=== PATIENT | male | born 1995 | race Caucasian/White ===

== ENCOUNTER 2017-03-22 10:53 | Inpatient (IN) | payer MEDICAID, OTHER ==
[~2017-03-22] VITALS: Ht 182.9 cm; Wt 67.6 kg
[2017-03-22 11:18] VITALS: TEMP 101.3
[2017-03-22] MEDS ORDERED: SODIUM CHLORIDE 0.9% 1L BAG IV* STA (11:22)
[2017-03-22] MEDS ORDERED: ACET325S GTB (11:24)
[2017-03-22] MEDS ORDERED: AMLO5TAB4 GTB (11:25)
[2017-03-22] MEDS ORDERED: APIX5TAB GTB (11:26)
[2017-03-22] MEDS ORDERED: BACL10TA GTB (11:27)
[2017-03-22] MEDS ORDERED: NA P135E RC (11:28)
[2017-03-22] MEDS ORDERED: UDCOL GTB (11:28)
[2017-03-22] MEDS ORDERED: ACETAMINOPHEN 325 MG TAB NGT ONE (11:30)
[2017-03-22 11:31] LABS: ADD SCAN DIFF NO
[2017-03-22] MEDS ORDERED: HYDR-3671 GTB (11:32)
[2017-03-22 11:34] LABS: BASOPHILS % 0.2 % (0.0-2.0); EOSINOPHILS % 0.1 % (0.0-7.0); HEMATOCRIT 39.3 % (42.0-52.0); HEMOGLOBIN 13.2 g/dl (14.0-18.0); LYMPHOCYTES # 1.1 10^3/ul (0.8-2.9); LYMPHOCYTES % 7.7 % (15.0-51.0); MEAN CORPUSCULAR HEMOGLOBIN 29.3 pg (29.0-33.0); MEAN CORPUSCULAR HGB CONC 33.6 g/dl (32.0-37.0); MEAN CORPUSCULAR VOLUME 87.3 fl (82.0-101.0); MEAN PLATELET VOLUME 10.8 fl (7.4-10.4); MONOCYTE # 1.1 10^3/ul (0.3-0.9); MONOCYTES % 7.9 % (0.0-11.0); NEUTROPHIL # 11.7 10^3/ul (1.6-7.5); NEUTROPHILS % 83.8 % (39.0-77.0); PLATELET COUNT 335 10^3/UL (140-415); RED CELL DISTRIBUTION WIDTH 14.2 % (11.5-14.5)
[2017-03-22] MEDS ORDERED: LACT1CAP57 GTB (11:36)
[2017-03-22] MEDS ORDERED: LANS30CA GTB (11:38)
[2017-03-22] MEDS ORDERED: LACT20SO2 GTB (11:38)
[2017-03-22] MEDS ORDERED: KEP100S GTB (11:39)
[2017-03-22] MEDS ORDERED: LISI20TA11 GTB (11:41)
[2017-03-22] MEDS ORDERED: POLY17PO6 GTB (11:43)
[2017-03-22] MEDS ORDERED: MAGN400O4 GTB (11:43)
[2017-03-22] MEDS ORDERED: NIT1OI2 TD (11:44)
[2017-03-22 11:47] LABS: ALBUMIN 4.3 g/dl (3.3-4.9)
[2017-03-22 11:48] LABS: CHLORIDE 101 mmol/L (97-110); POTASSIUM 3.9 mmol/L (3.5-5.1); SODIUM 139 mmol/L (135-144)
[2017-03-22 11:48] LABS: PARTIAL THROMBOPLASTIN TIME 22.8 Sec (25.0-35.0)
[2017-03-22] MEDS ORDERED: NYST1000 GTB (11:48)
[2017-03-22 11:50] LABS: ANION GAP 19 (8-16); BILIRUBIN,INDIRECT 0.6 mg/dl (0-1.1); BILIRUBIN,TOTAL 0.6 mg/dl (0.2-1.3); CARBON DIOXIDE 23 mmol/L (21-31); CREATININE 0.75 mg/dl (0.61-1.24)
[2017-03-22 11:51] LABS: ALANINE AMINOTRANSFERASE 94 IU/L (13-69); ALBUMIN/GLOBULIN RATIO 1.13; ALKALINE PHOSPHATASE 115 IU/L (42-121); ASPARTATE AMINO TRANSFERASE 50 IU/L (15-46); BLOOD UREA NITROGEN 20 mg/dl (7-20); CALCIUM 9.5 mg/dl (8.4-10.2); GLUCOSE 107 mg/dl (70-220); TOTAL PROTEIN 8.1 g/dl (6.1-8.1)
[2017-03-22] MEDS ORDERED: OXYC5CAP17 GTB (11:51)
[2017-03-22] MEDS ORDERED: CHLO473M4 MM (11:52)
[2017-03-22] MEDS ORDERED: PROC5VIA4 IM (11:53)
[2017-03-22] MEDS ORDERED: PROP40TA4 GTB (11:55)
[2017-03-22] MEDS ORDERED: PSYL660P17 GTB (11:57)
[2017-03-22] MEDS ORDERED: MYL80 PEG (11:58)
--- NOTE | 2017-03-22 11:58 | RADRPT ---
PROCEDURE: Chest Radiograph. CLINICAL INDICATION: Sepsis TECHNIQUE: Single frontal chest radiograph. COMPARISON: Chest radiograph 02/14/2017 FINDINGS: A tracheostomy tube is in place. The cardiomediastinal silhouette is within normal limits. No inf iltrate or effusion is seen. The bones are intact. IMPRESSION: 1. No evidence of acute cardiopulmonary disease. RPTAT: KK .Joon Krishna MD, MD Date Time Electronically viewed and signed by .Joon Krishna MD, on 03/22/2017 11:58 .B/
[2017-03-22] MEDS ORDERED: TOPI25TA38 GTB (11:59)
[2017-03-22] MEDS ORDERED: MULT-235 GTB (12:00)
[2017-03-22] MEDS ORDERED: SPIR25TA GTB (12:08)
[2017-03-22 12:13] LABS: TROPONIN-I < 0.012 ng/ml (0.00-0.12)
[2017-03-22] MEDS ORDERED: ONDANSETRON 4 MG INJ IV STA (13:20)
[2017-03-22 13:34] LABS: ADD UMIC YES; URINE BILIRUBIN (Dip) NEGATIVE (NEGATIVE); URINE BLOOD (Dip) NEGATIVE (NEGATIVE); URINE COLOR YELLOW (YELLOW); URINE GLUCOSE (Dip) NEGATIVE (NEGATIVE); URINE KETONES (Dip) TRACE (NEGATIVE); URINE LEUKOCYTE ESTERASE (Dip) NEGATIVE (NEGATIVE); URINE NITRITE (Dip) NEGATIVE (NEGATIVE); URINE TOTAL PROTEIN (Dip) 1+ (NEGATIVE); URINE UROBILINOGEN (Dip) 0.2 E.U./dL (0.1-1.0)
[2017-03-22 13:41] LABS: INR 1.16; PROTIME 14.8 Sec (12.2-14.2); PT RATIO 1.2
[2017-03-22 13:50] LABS: BACTERIA,URINE RARE; URINE RBCS 0-2 /HPF (0)
[2017-03-22] MEDS ORDERED: ACETAMINOPHEN 650MG/20.3ML CUP ONE (13:53)
[2017-03-22] MEDS ORDERED: CEFEPIME 2GM/50 ML (PMX) 50 ML IVPB STA (14:41)
[2017-03-22] MEDS ORDERED: VANCOMYCIN 1 GM (PMX) 250 ML IVPB STA (14:41)
--- NOTE | 2017-03-22 14:47 | RADRPT ---
PROCEDURE: CT Abdomen and Pelvis without contrast. CLINICAL INDICATION: Fever. Tachycardia. TECHNIQUE: CT scan of the abdomen and pelvis without contrast was performed on a multi-slice CT [facility] without intravenous contrast. Coronal and sagittal reformatted images were obtained from the axial source images. Images were reviewed on a high-resolution PACS workstation. One or more of the following does reduction techniques were used: Automated exposure control; adjustment of the mA an d/or kV according to patient size; use of the aorta of reconstruction technique. The total exam CTD I equals 14.45 mGy and the total exam DLP equals 915.65 mGy-cm. COMPARISON: None available. FINDINGS: There is moderate bilateral posterior lower lobe subsegmental atelectasis. The lung bases are other matamoros clear. Heart size is normal, and there is no evidence of pericardial thickening or effusion. There is moderate to marked thickening of the distal esophagus. Evaluation of the upper abdomen is limited due to streak artifact from upper extremities. The liver , spleen, and pancreas are grossly within normal limits given limitations of a noncontrast CT examin ation. The gallbladder is normal. The adrenal glands are normal. The kidneys without renal calculus or hydronephrosis. The aorta is of normal caliber. Note is made of an inferior vena caval filter. There is no retroper itoneal lymph node enlargment. There is no evidence of large or small bowel obstruction. A gastrostomy tube is in place. There is moderate stool within the rectum and mild stool throughout the colon. A normal appendix is identif ied. No free fluid or fluid collections are identified. No inflammatory changes are seen. No enlarged pelvic sidewall lymph nodes are seen. The bladder is decompressed and predominately co llapsed.. No free fluid is identified. The inguinal regions are unremarkable. The bones are intact. IMPRESSION: 1. Moderate to marked thickening of the distal esophagus. Recommend correlation with esophagitis. A neoplasm could also have this appearance, however the highly unlikely in a patient of this age. 2. Moderate bilateral posterior lower lobe atelectasis. 3. Inferior vena caval filter and gastrostomy tube in place. 4. Moderate rectal stool and mild stool throughout colon. Correlate with fecal impaction. RPTAT: KK .Joon Krishna MD, MD Date Time Electronically viewed and signed by .Joon Krishna MD, MD on 03/22/2017 14:47 .B/
[2017-03-22] MEDS ORDERED: SOD CHLORIDE 0.9% 1,000 ML IV SCH (14:49)
[2017-03-22] MEDS ORDERED: ACETAMINOPHEN 325 MG TAB PO PRN (15:00)
[2017-03-22] MEDS ORDERED: ONDANSETRON 4 MG INJ IV PRN ×2 (15:00→18:00)
--- NOTE | 2017-03-22 15:02 | ERA ---
ER Documentation Chief Complaint Date/Time DATE: 03/22/17 TIME: 14:56 Chief Complaint fever and tachycardia from snf; symptoms started today HPI History obtained from patient's family members were at bedside. This is a 21- year-old male who is brought in by ambulance from his [facility] for evaluation of a fever and tachycardia. According to the patient's family member this patient does have his history of anoxic brain injury secondary to drug overdose. He subsequently had a craniotomy, and developed respiratory issues and had to have a trach and PEG placed. This patient is unable to give a detailed history secondary to his clinical condition and cognitive deficits at this time ROS All systems reviewed and are negative except as per history of present illness. Medications Home Meds Reported Medications Spironolactone* (Aldactone*) 25 Mg Tablet, 25 MG GTB DAILY, #30 TAB HOLD FOR SBP LESS THAN 110 AND HR LESS THAN 60 03/22/17 Multivitamin (Multi-Day Vitamins) 1 Each Tablet, 1 EACH GTB DAILY, TAB LIQUID 03/22/17 Topiramate* (Topamax*) 25 Mg Tablet, 25 MG GTB BID, TAB 03/22/17 Simethicone* (Mylicon*) 80 Mg Tab, 80 MG PEG Q6H Y for DISTENSION/GAS/BLOATING, TAB 03/22/17 Psyllium Husk (Metamucil) 660 Gm Powder, 660 GM GTB BID 03/22/17 Propranolol Hcl* (Propranolol Hcl*) 40 Mg Tablet, 40 MG GTB Q6 Y for ELEVATED BLOOD PRESSURE, TAB HOLD FOR SBP LESS THAN 110 AND HR LESS THAN 60 03/22/17 Prochlorperazine Edisylate* (Prochlorperazine Edisylate*) 5 Mg/1 Ml Vial, 5 MG IM Q6H Y for NAUSEA AND/OR VOMITING, VIAL 03/22/17 Chlorhexidine Gluconate (Peridex) 473 Ml Mouthwash, 15 ML MM Q12, BOTTLE 03/22/17 Oxycodone Hcl* (IR) (Oxycodone Hcl*) 5 Mg Capsule, 5 MG GTB Q4H Y for PAIN, CAP 03/22/17 Nystatin (Nystatin) 100,000 Unit/1 Ml Oral.susp, 1 ML GTB BID Y for FUNGI INFECTION, #60 ML SWAB AND SUCTION 03/22/17 Nitroglycerin* (Nitro-Bid* Oint (Pkt)) 1 Inch Oint, 1 INCH TD Q6 Y for CHEST PAIN, PACKET 03/22/17 Polyethylene Glycol* (Miralax*) 17 Gm Powd.pack, 17 GM GTB DAILY, #30 PACKET 03/22/17 Magnesium Hydroxide* (Milk Of Magnesia*) 400 Mg/5 Ml Oral.susp, 30 ML GTB DAILY , ML 03/22/17 Lisinopril* (Lisinopril*) 20 Mg Tablet, 20 MG GTB DAILY Y for ELEVATED BLOOD PRESSURE, #30 TAB HOLD FOR SBP LESS THAN 120 AND HR LESS THAN 60 03/22/17 Levetiracetam* (Keppra* (Ped)) 100 Mg/Ml Liq, 2000 MG GTB BID for 30 Days, BOTTLE 03/22/17 Lansoprazole* (Lansoprazole*) 30 Mg Capsule.dr, 30 MG GTB DAILY, CAP 03/22/17 Lactulose* (Lactulose*) 20 Gm/30 Ml Solution, 20 GM GTB BID, ML 03/22/17 Lactobacillus Rhamnosus* (Culturelle*) 1 Each Cap.sprink, 1 CAP GTB DAILY, CAP 03/22/17 Hydralazine Hcl* (Hydralazine Hcl*) 25 Mg Tab, 25 MG GTB Q8 Y for ELEVATED BLOOD PRESSURE, #90 TAB SBP ABOVE 160 03/22/17 Na Phos,M-B/Na Phos,Di-Ba (ENEMA READY TO USE) 135 Ml Enema, 135 ML RC DAILY Y for CONSTIPATION, ENEMA 03/22/17 Docusate Sodium* (Colace* Liq) 50 Mg/5 Ml Liquid, 100 MG GTB BID, EA 03/22/17 Baclofen* (Baclofen*) 10 Mg Tablet, 10 MG GTB BID Y for MUSCLE SPASMS, TAB 03/22/17 Apixaban* (Eliquis*) 5 Mg Tablet, 5 MG GTB BID, TAB 03/22/17 Amlodipine Besylate* (Norvasc*) 5 Mg Tablet, 5 MG GTB DAILY, TAB HOLD FOR SBP LESS THAN 110 AND HR LESS THAN 60 03/22/17 Acetaminophen* (Acetaminophen* Susp) 325 Mg/10.15 Ml Solution, 500 MG GTB Q6 Y for PAIN AND OR ELEVATED TEMP, ML 03/22/17 Allergies Allergies: Coded Allergies: prasugrel (Verified Allergy, Unknown, 03/22/17) shrimp (Verified Allergy, Unknown, 03/22/17) *SHRIMP FLAVOR* PMhx/Soc History of Surgery: Yes (trache) Anesthesia Reaction: No Hx Respiratory Disorders: Yes (pna, ) Hx Miscellaneous Medical Probl: No Hx Alcohol Use: No Hx Substance Use: No Hx Tobacco Use: No Smoking Status: Never smoker Physical Exam Vitals Vital Signs Date Time Temp Pulse Resp B/P Pulse Ox O2 Delivery O2 Flow Rate FiO2 03/22/17 13:51 118 24 119/89 99 Mask 5.0 03/22/17 11:18 101.3 124 03/22/17 11:18 101.3 124 22 127/82 100 03/22/17 11:18 Simple Mask 5 Physical Exam INITIAL VITAL SIGNS: Reviewed by me GENERAL: The patient is poorly developed, bedbound, trach HEENT: Craniotomy scar pupils equal, round, and reactive to light. EOMI. There is no scleral icterus. NECK: C-spine is soft and supple, there is no meningismus. There is no cervical lymphadenopathy. LUNGS: Clear to auscultation bilaterally. There are no rales, wheezes or rhonchi. HEART: Tachycardia, no murmurs, clicks, rubs or gallops. ABDOMEN: PEG tube in place, soft, non-tender, non-distended. There are bowel sounds in all four quadrants. No rebound or guarding. EXTREMITIES: There is no peripheral cyanosis or edema. No focal swelling or erythema. SKIN: There is no apparent rash or petechiae. HEME/LYMPHATIC: There is no evidence of excessive bruising or lymphedema. PSYCHIATRIC: The patient does not appear anxious or depressed. Result Diagram: 03/22/17 1105 03/22/17 1105 Results 24 hrs Laboratory Tests Test 03/22/17 11:05 03/22/17 13:05 White Blood Count 14.010^3/ul Red Blood Count 4.5010^6/ul Hemoglobin 13.2g/dl Hematocrit 39.3% Mean Corpuscular Volume 87.3fl Mean Corpuscular Hemoglobin 29.3pg Mean Corpuscular Hemoglobin Concent 33.6g/dl Red Cell Distribution Width 14.2% Platelet Count 82875^3/UL Mean Platelet Volume 10.8fl Neutrophils % 83.8% Lymphocytes % 7.7% Monocytes % 7.9% Eosinophils % 0.1% Basophils % 0.2% Nucleated Red Blood Cells % 0.0/100WBC Neutrophils # 11.710^3/ul Lymphocytes # 1.110^3/ul Monocytes # 1.110^3/ul Eosinophils # 0.010^3/ul Basophils # 0.010^3/ul Nucleated Red Blood Cells # 0.010^3/ul Sodium Level 139mmol/L Potassium Level 3.9mmol/L Chloride Level 101mmol/L Carbon Dioxide Level 23mmol/L Anion Gap 19 Blood Urea Nitrogen 20mg/dl Creatinine 0.75mg/dl Glucose Level 107mg/dl Lactic Acid Level 1.1mmol/L 1.4mmol/L Calcium Level 9.5mg/dl Total Bilirubin 0.6mg/dl Direct Bilirubin 0.00mg/dl Indirect Bilirubin 0.6mg/dl Aspartate Amino Transf (AST/SGOT) 50IU/L Alanine Aminotransferase (ALT/SGPT) 94IU/L Alkaline Phosphatase 115IU/L Troponin I < 0.012ng/ml Total Protein 8.1g/dl Albumin 4.3g/dl Globulin 3.80g/dl Albumin/Globulin Ratio 1.13 Prothrombin Time 14.8Sec Prothrombin Time Ratio 1.2 INR International Normalized Ratio 1.16 Activated Partial Thromboplast Time 22.8Sec Urine Color YELLOW Urine Clarity CLEAR Urine pH 6.0 Urine Specific [place] 1.025 Urine Ketones TRACE Urine Nitrite NEGATIVE Urine Bilirubin NEGATIVE Urine Urobilinogen 0.2 E.U./dL Urine Leukocyte Esterase NEGATIVE Urine Microscopic RBC 0-2/HPF Urine Microscopic WBC NONE SEEN/HPF Urine Bacteria RARE Urine Hemoglobin NEGATIVE Urine Glucose NEGATIVE% Urine Total Protein 1+ Current Medications Medications (Trade) Dose Ordered Sig/Demarcus Route PRN Reason Start Time Stop Time Status Last Admin Dose Admin Acetaminophen (Tylenol Tab) 650 mg ONCE ONCE NGT 03/22/17 11:30 03/22/17 11:31 DC 03/22/17 12:09 Sodium Chloride (NS) 2,400 ml BOLUS OVER 2 HOURS STAT IV* 03/22/17 11:22 03/22/17 11:23 DC 03/22/17 12:09 Ondansetron HCl (Zofran Inj) 4 mg ONCE STAT IV 03/22/17 13:20 03/22/17 13:21 DC 03/22/17 13:50 Acetaminophen 650 mg 650 mg STK-MED ONCE .ROUTE 03/22/17 13:53 03/22/17 13:54 DC Vancomycin HCl 250 ml @ 125 mls/hr ONCE STAT IVPB 03/22/17 14:41 03/22/17 16:40 Cefepime HCl (Maxipime 2gm/50 ml (Pmx)) 50 ml @ 100 mls/hr ONCE STAT IVPB 03/22/17 14:41 03/22/17 15:10 Procedures/MDM EKG: Rate/Rhythm: Sinus tachycardia QRS, ST, T-waves: [No changes consistent w/ acute ischemia] Impression: [No evidence of ischemia or arrhythmia] Chest X-ray 1V Interpreted by me: Soft Tissue: No acute abnormalities Bones: No acute abnormalities Mediastinum/Cardiac Silhouette/Lungs: [No acute abnormalities] CT abdomen pelvis without: 1. Moderate to marked thickening of the distal esophagus. Recommend correlation with esophagitis. A neoplasm could also have this appearance, however the highly unlikely in a patient of this age. 2. Moderate bilateral posterior lower lobe atelectasis. 3. Inferior vena caval filter and gastrostomy tube in place. 4. Moderate rectal stool and mild stool throughout colon. Correlate with fecal impaction. This 21-year-old male presents to the emergency room for evaluation of fever and tachycardia. When I evaluated this patient did note that he had a tracheostomy, PEG tube, was febrile and tachycardic. A septic workup was started on this patient which does reveal leukocytosis. I did obtain a chest x- ray which is clear, urinalysis is also clear, CT of the abdomen and pelvis does not reveal any acute sign of infection. However given this patient's extensive medical history with anoxic brain injury, recent hospitalization, previous staph infection this patient will be placed in for admission at this time. I started the patient on broad-spectrum antibiotics with vancomycin and cefepime. I have contacted this patient's primary physician, Dr. sims who states to admit the patient to panel. This patient will be admitted to her panel physician, Dr. mccall for antibiotic administration, IV fluid hydration, and reevaluation. This patient will be placed on the telemetry floor. He is hemodynamically stable. Critical Care: Excluding all billable procedures Time: 44 minutes Treatments/Evaluations: Close monitoring and treatment of unstable vital signs, cardiorespiratory, and neurologic status, while maintaining tight balance of fluid, respiratory, and cardiac interventions. Departure Diagnosis: Primary Impression: SIRS (systemic inflammatory response syndrome) Additional Impressions: Fever Leukocytosis Normocytic anemia Condition: Serious HELLEN EUCEDA DO March 22, 2017 15:02
[2017-03-22 17:00] VITALS: Ht 182.9 cm; Wt 67.6 kg
[2017-03-22 17:18] VITALS: PULSE 136
[2017-03-22] MEDS ORDERED: NA PHOSPHATE/BIPHOS 133 ML ENEMA PR PRN (18:00)
[2017-03-22] MEDS ORDERED: BACLOFEN 10 MG TAB GTB PRN (18:00)
[2017-03-22] MEDS ORDERED: oxyCODONE 5 MG TAB GTB PRN (18:00)
[2017-03-22] MEDS ORDERED: PROPRANOLOL 40 MG TAB GTB PRN (18:00)
[2017-03-22] MEDS ORDERED: NACL 0.9% 3 ML SYG IV SCH (18:00)
[2017-03-22] MEDS ORDERED: VANCOMYCIN IV PER PHARMACY XX SCH (18:00)
[2017-03-22] MEDS ORDERED: PROCHLORPERAZINE 10 MG INJ IM PRN (18:00)
[2017-03-22] MEDS ORDERED: NITROGLYCERIN 2% 1 GM OINT PKT TD PRN (18:00)
[2017-03-22 20:00] VITALS: BP 155/97; RESP 16
[2017-03-22] MEDS ORDERED: VANCOMYCIN 1.25 GM in SOD CHLORIDE 0.9% 250 ML IVPB ONE (20:00)
[2017-03-22 20:03] VITALS: PULSE 152
[2017-03-22] MEDS: ACETAMINOPHEN 650MG/20.3ML CUP GTB PRN (20:26)
[2017-03-22] MEDS ORDERED: SOD CHLORIDE 0.9% 1,000 ML IV ONE (20:30)
[2017-03-22] MEDS: DOCUSATE SODIUM 10 MG/ML (10ML CUP) GTB SCH (21:00)
[2017-03-22] MEDS: LACTULOSE 30ML CUP GTB SCH (21:00)
[2017-03-22] MEDS: LEVETIRACETAM (100 MG/ML) 5ML CUP GTB SCH (21:00)
[2017-03-22] MEDS: NYSTATIN SUSP 5 ML CUP GTB SCH (22:00)
[2017-03-22] MEDS: LISINOPRIL 20 MG TAB GTB SCH (22:56)
[2017-03-22] MEDS: PROPRANOLOL 40 MG TAB GTB SCH (22:56)
[2017-03-22] MEDS: PIPER-TAZO 3.375 GM IV (PMX) 100 ML IVPB SCH (22:57)
[2017-03-22] MEDS: APIXABAN 5 MG TABLET GTB SCH (22:57)
[2017-03-22] MEDS: TOPIRAMATE 25 MG TAB GTB SCH (22:58)
[2017-03-22] MEDS: CHLORHEXIDINE GLUCONATE 15 ML UD CUP MM SCH (22:58)
[2017-03-22] MEDS: PSYLLIUM (SUGAR FREE) PACKET GTB SCH (22:59)
[2017-03-22] MEDS ORDERED: IBUPROFEN 200 MG TAB PO ONE (23:00)
[2017-03-22] MEDS ORDERED: SOD CHLORIDE 0.9% 250 ML IV ONE (23:00)
[2017-03-23] VITALS (13 sets, daily range): BP systolic 112–182; BP diastolic 49–82; PULSE 83–128; RESP 17–32
[2017-03-23] MEDS: VANCOMYCIN 1 GM in NS 250 ML IVPB SCH ×3 (04:12→21:38)
[2017-03-23] MEDS: ACETAMINOPHEN 650MG/20.3ML CUP GTB PRN ×3 (05:27→18:56)
[2017-03-23] MEDS: LANSOPRAZOLE 30 MG CAP GTB SCH (05:27)
[2017-03-23] MEDS: PIPER-TAZO 3.375 GM IV (PMX) 100 ML IVPB SCH ×2 (05:27→14:17)
[2017-03-23] MEDS: PROPRANOLOL 40 MG TAB GTB SCH ×3 (05:29→18:00)
--- NOTE | 2017-03-23 06:45 | HP ---
DATE OF ADMISSION: 03/22/2017 CHIEF COMPLAINT: Fevers. HISTORY OF PRESENT ILLNESS: The patient is a 21-year-old male with a history of anoxic brain injury status post PEG, trach. The patient was at [facility] initially when he had presented with drug overdose , likely heroin. The patient apparently aspirated and underwent a long hypoxia, unclear if he ever had a cardiac arrest, but subsequent to his anoxic injury from the aspiration pneumonia, the patient was subsequently trached and PEG'd. The patient did have a blood clot in one of his extremities, t he patient's sister believes it was the left leg, and underwent thrombectomy in that leg. The patie nt also had IVC filter placed. After his stay [facility], the patient was transferred to [facility] where he was there for approximately 1 month. Then he was transferred to a [facility] where he wa s there for less than 1 day. He was noted to have fevers, tachycardia. In the ED, UA shows no sign s of UTI. Chest x-ray shows no signs of infection, but the patient is febrile with a white count. History is obtained by the patient's sister, as patient is nonverbal secondary to his underlying con dition. PAST MEDICAL HISTORY: History of hypertension in the past, he was on medications for this, as well as anoxic brain injury secondary to the long hypoxia from aspiration pneumonia from a drug overdose. PAST SURGICAL HISTORY: IVC filter placement, thrombectomy, and craniectomy for brain herniation dur ing his anoxic brain injury. HOME MEDICATIONS: 1. Aldactone. 2. Multivitamin. 3. ____. 4. Simethicone. 5. ____. 6. Atenolol. 7. Peridex. 8. Oxycodone. 9. Nystatin. 10. Nitroglycerin. 11. Milk of magnesia. 12. Lisinopril. 13. Keppra. 14. Lactulose. 15. Hydralazine. 16. Eliquis. 17. Norvasc. ALLERGIES: 1. PRASUGREL. 2. SHRIMP. FAMILY HISTORY: None reported by the sister. SOCIAL HISTORY: History of tobacco abuse and drug abuse, in particular heroin. No reports of alcoh ol abuse in the past. REVIEW OF SYSTEMS: A 12-point review of systems cannot be obtained secondary to patient's poor ment ation. PHYSICAL EXAMINATION: VITAL SIGNS: Temperature is 91.3, pulse 136, respiratory rate is 24, BP is 119/89, saturation 99% v ia trach. GENERAL: Nonverbal. HEENT: Craniectomy noted. LUNGS: Clear to auscultation. CARDIOVASCULAR: Tachycardic. ABDOMEN: Nondistended, soft. EXTREMITIES: No clubbing, cyanosis, or edema. Contracted. LABORATORIES: White cell count 14.0, hemoglobin 13.2, platelets 235. Chemistry within normal limit s except for anion gap of 19. Lactic acid is 1.1. AST is ____, ALT is 94. INR is 1.6. UA is with in normal limits. DIAGNOSTICS: Chest x-ray shows no evidence of any acute process. Abdominal pelvis CT shows thicken ing of the distal esophagus, atelectasis, IVC filter placement as well as a G-tube placement, mild s tool throughout the colon. ASSESSMENT AND PLAN: 1. Systemic inflammatory response syndrome. The patient does meet systemic inflammatory response s yndrome criteria with elevated temperature and leukocytosis. Source of infection is unclear at this time. It could be from a decubitus ulcer. Treat with broad spectrum antibiotics at this time with vancomycin and Zosyn. Follow up on cultures. Get ID consultation. 2. Anoxic encephalopathy with chronic debility status post percutaneous endoscopic gastrostomy and tracheostomy as well as craniectomy. The patient was just discharged from [place]. Will get a pulmo nology consultation for vent management. We will get a palliative care consultation. The patient h as poor prognosis. 3. History of hypertension. Blood pressure is currently stable at this time. 4. History of substance abuse in the past. 5. Prophylaxis. Sequential compression devices. Dictated By: MONIQUE REEYS MD BS/NTS Conf#: [id number] DID#: [id number]
[2017-03-23 08:38] LABS: ADD SCAN DIFF NO
[2017-03-23 08:44] LABS: BASOPHILS % 0.2 % (0.0-2.0); HEMATOCRIT 35.3 % (42.0-52.0); HEMOGLOBIN 11.4 g/dl (14.0-18.0); LYMPHOCYTES # 1.2 10^3/ul (0.8-2.9); LYMPHOCYTES % 9.3 % (15.0-51.0); MEAN CORPUSCULAR HEMOGLOBIN 29.1 pg (29.0-33.0); MEAN CORPUSCULAR HGB CONC 32.3 g/dl (32.0-37.0); MEAN CORPUSCULAR VOLUME 90.1 fl (82.0-101.0); MEAN PLATELET VOLUME 10.7 fl (7.4-10.4); MONOCYTES % 8.2 % (0.0-11.0); NEUTROPHIL # 10.2 10^3/ul (1.6-7.5); NEUTROPHILS % 81.7 % (39.0-77.0); PLATELET COUNT 281 10^3/UL (140-415); RED BLOOD COUNT 3.92 10^6/ul (4.70-6.10); RED CELL DISTRIBUTION WIDTH 14.4 % (11.5-14.5); WHITE BLOOD COUNT 12.5 10^3/ul (4.8-10.8)
[2017-03-23] MEDS: POLYETHYLENE GLYCOL 17 GM PACKET GTB SCH (09:00)
[2017-03-23] MEDS: APIXABAN 5 MG TABLET GTB SCH ×2 (09:00→21:00)
[2017-03-23] MEDS: AMLODIPINE 5 MG TAB GTB SCH (09:00)
[2017-03-23 09:27] LABS: ALBUMIN 3.3 g/dl (3.3-4.9)
[2017-03-23 09:28] LABS: POTASSIUM 3.5 mmol/L (3.5-5.1)
[2017-03-23 09:30] LABS: ALBUMIN/GLOBULIN RATIO 0.97; BILIRUBIN,INDIRECT 0.5 mg/dl (0-1.1); BILIRUBIN,TOTAL 0.5 mg/dl (0.2-1.3); CREATININE 0.73 mg/dl (0.61-1.24); TOTAL PROTEIN 6.7 g/dl (6.1-8.1)
[2017-03-23 09:31] LABS: CALCIUM 8.6 mg/dl (8.4-10.2); MAGNESIUM 2.1 mg/dl (1.7-2.5); PHOSPHORUS 3.3 mg/dl (2.5-4.9)
[2017-03-23] MEDS: SPIRONOLACTONE 25 MG TAB GTB SCH (10:04)
[2017-03-23] MEDS: LACTOBACILLUS RHAMNOSUS CAP GTB SCH (10:04)
[2017-03-23] MEDS: LISINOPRIL 20 MG TAB GTB SCH (10:04)
[2017-03-23] MEDS: TOPIRAMATE 25 MG TAB GTB SCH (10:04)
[2017-03-23] MEDS: NYSTATIN SUSP 5 ML CUP GTB SCH ×2 (10:11→21:39)
[2017-03-23] MEDS: MULTIVITAMINS 5 ML CUP GTB SCH (10:11)
[2017-03-23] MEDS: LACTULOSE 30ML CUP GTB SCH ×2 (10:14→21:39)
[2017-03-23] MEDS: PSYLLIUM (SUGAR FREE) PACKET GTB SCH ×2 (10:14→21:00)
[2017-03-23] MEDS: MAGNESIUM HYDROXIDE 30ML CUP GTB SCH (10:15)
[2017-03-23] MEDS: CHLORHEXIDINE GLUCONATE 15 ML UD CUP MM SCH ×2 (10:16→21:39)
[2017-03-23] MEDS: DOCUSATE SODIUM 10 MG/ML (10ML CUP) GTB SCH ×2 (10:39→21:39)
[2017-03-23] MEDS: LEVETIRACETAM (100 MG/ML) 5ML CUP GTB SCH (12:12)
--- NOTE | 2017-03-23 14:51 | PN ---
Date/Time of Note Date/Time of Note DATE: 03/23/17 TIME: 14:46 Assessment/Plan VTE Prophylaxis VTE Prophylaxis Intervention: SCD's Assessment/Plan Chief Complaint/Hosp Course 1. Systemic inflammatory response syndrome -Source unclear at this time, Cx's neg at this point -ID consult, cont Broad spec Abx 2. Anoxic encephalopathy with chronic debility status post percutaneous endoscopic gastrostomy and tracheostomy as well as craniectomy -Pulmonology consultation for vent management -skull replacement when swelling resolves 3. History of hypertension-stable -cont Rx 4. GIB-pt has coffee ground emesis -Hold Eliquis 5. History of substance abuse in the past Prophylaxis. Sequential compression devices Problems: Subjective 24 Hr Interval Summary Subjective hx not possible: pt non-verbal Exam/Review of Systems Vital Signs Vitals Vital Signs Date Time Temp Pulse Resp B/P Pulse Ox O2 Delivery O2 Flow Rate FiO2 03/23/17 12:52 97.8 03/23/17 12:24 115 32 182/49 95 03/23/17 11:54 Aerosol 5.0 28 T Tube Intake and Output 03/22/17 03/22/17 03/23/17 15:00 23:00 07:00 Intake Total 200 ml Output Total 650 ml Balance -450 ml Exam Constitutional: non-verbal Respiratory: clear to auscultation Cardiovascular: regular rate and rhythm Gastrointestinal: soft, No distended Musculoskeletal: nl extremities to inspection Results Result Diagram: 03/23/17 0810 03/23/17 0730 Results 24 hrs Laboratory Tests Test 03/22/17 17:36 03/23/17 07:30 03/23/17 08:10 Lactic Acid Level 1.3 Sodium Level 147 H Potassium Level 3.5 Chloride Level 113 H Carbon Dioxide Level 20 L Anion Gap 18 H Blood Urea Nitrogen 20 Creatinine 0.73 Glucose Level 98 Calcium Level 8.6 Phosphorus Level 3.3 Magnesium Level 2.1 Total Bilirubin 0.5 Direct Bilirubin 0.00 Indirect Bilirubin 0.5 Aspartate Amino Transf (AST/SGOT) 41 Alanine Aminotransferase (ALT/SGPT) 77 H Alkaline Phosphatase 89 Total Protein 6.7 # Albumin 3.3 # Globulin 3.40 H Albumin/Globulin Ratio 0.97 White Blood Count 12.5 H Red Blood Count 3.92 L Hemoglobin 11.4 L Hematocrit 35.3 L Mean Corpuscular Volume 90.1 Mean Corpuscular Hemoglobin 29.1 Mean Corpuscular Hemoglobin Concent 32.3 Red Cell Distribution Width 14.4 Platelet Count 281 Mean Platelet Volume 10.7 H Neutrophils % 81.7 H Lymphocytes % 9.3 L Monocytes % 8.2 Eosinophils % 0.0 Basophils % 0.2 Nucleated Red Blood Cells % 0.0 Neutrophils # 10.2 H Lymphocytes # 1.2 Monocytes # 1.0 H Eosinophils # 0.0 Basophils # 0.0 Nucleated Red Blood Cells # 0.0 Medications Medications Current Medications Ondansetron HCl 4 mg 4 mg Q6H PRN IV NAUSEA AND/OR VOMITING; Start 03/22/17 at 18:00 Piperacillin Sod/ Tazobactam Sod (Zosyn 3.375gm/ 100 ml (Pmx)) 100 ml @ 200 mls /hr Q8 IVPB Last administered on 03/23/17 14:17; Admin Dose 200 MLS/HR; Start 03/22/17 at 22:00 Acetaminophen (Tylenol Liquid) 500 mg Q6H PRN GTB PAIN AND OR ELEVATED TEMP Last administered on 03/23/17 10:32; Admin Dose 500 MG; Start 03/22/17 at 18:00 Amlodipine Besylate (Norvasc) 5 mg DAILY GTB Last administered on 03/23/17 09: 00; Admin Dose 5 MG; Start 03/23/17 at 09:00 Apixaban (Eliquis) 5 mg BID GTB Last administered on 03/22/17 22:57; Admin Dose 5 MG; Start 03/22/17 at 21:00 Baclofen (Lioresal) 10 mg BID PRN GTB MUSCLE SPASMS; Start 03/22/17 at 18:00 Chlorhexidine Gluconate (Peridex) 15 ml Q12 MM Last administered on 03/23/17 10:16; Admin Dose 15 ML; Start 03/22/17 at 21:00 Docusate Sodium (Colace Liquid Cup) 100 mg BID GTB Last administered on 10:39; Admin Dose 100 MG; Start 03/22/17 at 21:00 Hydralazine HCl (Apresoline) 25 mg Q8 PRN GTB SBP>170; Start 03/22/17 at 18:00 Lactobacillus Acidophilus/ Rhamnosus (Culturelle) 1 cap DAILY GTB Last administered on 03/23/17 10:04; Admin Dose 1 CAP; Start 03/23/17 at 09:00 Lactulose (Enulose) 20 gm BID GTB Last administered on 03/23/17 10:14; Admin Dose 20 GM; Start 03/22/17 at 21:00 Lansoprazole (Prevacid) 30 mg DAILY@06 GTB Last administered on 03/23/17 05:27 ; Admin Dose 30 MG; Start 03/23/17 at 06:00 Levetiracetam (Keppra Liquid) 2,000 mg BID GTB Last administered on 03/23/17 12:12; Admin Dose 2,000 MG; Start 03/22/17 at 21:00 Lisinopril (Zestril) 20 mg DAILY GTB Last administered on 03/23/17 10:04; Admin Dose 20 MG; Start 03/22/17 at 22:00 Magnesium Hydroxide (Milk Of Mag) 30 ml DAILY GTB Last administered on 10:15; Admin Dose 30 ML; Start 03/23/17 at 09:00 Sodium Biphosphate/ Sodium Phosphate (Fleet Enema) 133 ml DAILY PRN [place] CONSTIPATION; Start 03/22/17 at 18:00 Nitroglycerin (Nitroglycerin 2% Oint) 1 inch Q6H PRN TD CHEST PAIN Last administered on 03/22/17 22:56; Admin Dose 1 INCH; Start 03/22/17 at 18:00 Nystatin (Nystatin Susp) 5 ml BID GTB Last administered on 03/23/17 10:11; Admin Dose 5 ML; Start 03/22/17 at 22:00 Oxycodone HCl (Roxicodone) 5 mg Q4H PRN GTB PAIN; Start 03/22/17 at 18:00 Polyethylene Glycol (Miralax) 17 gm DAILY GTB ; Start 03/23/17 at 09:00 Prochlorperazine (Compazine Inj) 5 mg Q6H PRN IM NAUSEA AND/OR VOMITING; Start 03/22/17 at 18:00 Simethicone (Mylicon) 80 mg Q6H PRN PEG DISTENSION/GAS/BLOATING; Start at 18:00 Spironolactone (Aldactone) 25 mg DAILY GTB Last administered on 03/23/17 10:04 ; Admin Dose 25 MG; Start 03/23/17 at 09:00 Topiramate (Topamax) 25 mg BID GTB Last administered on 03/23/17 10:04; Admin Dose 25 MG; Start 03/22/17 at 21:00 Multivitamins (Thera-Plus) 5 ml DAILY GTB Last administered on 03/23/17 10:11 ; Admin Dose 5 ML; Start 03/23/17 at 09:00 Psyllium Hydrophilic Mucilloid 1 pkt 1 pkt BID GTB Last administered on 10:14; Admin Dose 1 PKT; Start 03/22/17 at 22:00 Vancomycin HCl (Vancocin) 250 ml @ 125 mls/hr Q8H IVPB Last administered on 12:12; Admin Dose 125 MLS/HR; Start 03/23/17 at 04:00 Propranolol HCl (Inderal) 60 mg Q6 GTB Last administered on 03/23/17 12:49; Admin Dose 60 MG; Start 03/22/17 at 22:00 MONIQUE REYES March 23, 2017 14:51
--- NOTE | 2017-03-23 16:59 | CONS ---
DATE OF ADMISSION: 03/22/2017 DATE OF CONSULTATION: 03/23/2017 TYPE OF CONSULTATION: Infectious disease. REASON FOR CONSULTATION: Antibiotic management. HISTORY OF PRESENT ILLNESS: Shahriar Max is a 21-year-old male who comes in with a fever and a his tory of anoxic brain injury. The patient was at [facility] initially when he presented with a drug overdo se, likely heroin, he aspirated and underwent a long hypoxic stage. It is unclear if he ever had a c ardiac arrest, but subsequently had anoxic injury to his brain from aspiration pneumonia. He was landis bsequently trached and PEG'd. He had a blood clot in one of his extremities, possibly his left leg, and underwent a thrombectomy and an IVC filter was placed. The patient was transferred to [place], where he was for approximately 1 month. He then was transferred to a detention for less than a d ay. He had fever and tachycardia and was therefore brought in. In the emergency room his chest x-ra y shows no sign of infection. His urinalysis shows no sign of a UTI, but he is febrile, with an hussain vated white count. PAST MEDICAL HISTORY: History of hypertension in the past. He has anoxic brain damage. PAST SURGICAL HISTORY: As noted, he had an IVC filter placement and thrombectomy. He also had a cr aniectomy for brain herniation during the episode of anoxic brain injury. He has a trach and a PEG. ALLERGIES: HE IS ALLERGIC TO SHRIMP AND TO SOMETHING CALLED PRASUGREL. FAMILY HISTORY: Noncontributory. SOCIAL HISTORY: The patient has a history of tobacco and drug abuse, particularly heroin. No alcoh ol use in the past. MEDICATIONS: Per chart. REVIEW OF SYSTEMS: As per HPI. PHYSICAL EXAMINATION: GENERAL: The patient is hypothermic at 91.3. He is nonverbal. He has a trach and a PEG. HE has a craniectomy noted. NECK: Movable. LYMPH NODES: None palpable. CHEST: Decreased breath sounds at the bases. HEART: Without murmur or gallop. Tachycardic. ABDOMEN: Soft, nontender, without organosplenomegaly or masses. EXTREMITIES: Without cyanosis, clubbing, or edema. RECTAL/GENITAL EXAM: Deferred. The patient has some contractures. NEUROLOGIC EVALUATION: Anoxic brain damage. LABORATORY: White count of 14,000, hemoglobin 13.2, platelet count 235, anion gap of 19, lactic aci d 1.1. Chest x-ray shows no evidence of any acute process. Abdominal pelvic CT shows thickening of the distal esophagus and atelectasis. He has an IVC filter placed, as well as a G-tube. IMPRESSION AND PLAN: The patient has anoxic brain damage and a history of a fever to 101.8. His wh ite count today is 12.5. His urine is negative for leukocyte esterase. BUN and creatinine are 20/0 .73. Shahriar Max is an unfortunate 21-year-old. He is currently on vancomycin and Zosyn to cover this f ever. It could be that it is a central fever, but I doubt it since he has not had it before. We wi ll await his culture. So far his urine and blood cultures are negative. I will dictate my findings to the hospitalist. Dictated By: KRISHNA DURHAM MD, JD/MAKAYLA Conf#: [id number] DID#: [id number]
[2017-03-24] VITALS (12 sets, daily range): BP systolic 123–149; BP diastolic 61–101; PULSE 71–101; RESP 17–20
[2017-03-24] MEDS: PIPER-TAZO 3.375 GM IV (PMX) 100 ML IVPB SCH ×4 (00:45→23:07)
[2017-03-24] MEDS: TOPIRAMATE 25 MG TAB GTB SCH ×3 (00:45→20:10)
[2017-03-24] MEDS: PROPRANOLOL 40 MG TAB GTB SCH ×4 (00:46→18:35)
[2017-03-24] MEDS: LEVETIRACETAM (100 MG/ML) 5ML CUP GTB SCH ×3 (00:51→20:16)
[2017-03-24] MEDS: VANCOMYCIN 1 GM in NS 250 ML IVPB SCH ×3 (06:21→20:17)
[2017-03-24] MEDS: LANSOPRAZOLE 30 MG CAP GTB SCH (06:26)
[2017-03-24 07:53] LABS: ADD SCAN DIFF NO
[2017-03-24 08:04] LABS: BASOPHILS % 0.3 % (0.0-2.0); EOSINOPHILS % 0.2 % (0.0-7.0); HEMATOCRIT 32.4 % (42.0-52.0); HEMOGLOBIN 10.5 g/dl (14.0-18.0); LYMPHOCYTES # 1.1 10^3/ul (0.8-2.9); LYMPHOCYTES % 11.5 % (15.0-51.0); MEAN CORPUSCULAR HEMOGLOBIN 29.3 pg (29.0-33.0); MEAN CORPUSCULAR HGB CONC 32.4 g/dl (32.0-37.0); MEAN CORPUSCULAR VOLUME 90.5 fl (82.0-101.0); MEAN PLATELET VOLUME 10.6 fl (7.4-10.4); MONOCYTE # 0.8 10^3/ul (0.3-0.9); MONOCYTES % 8.5 % (0.0-11.0); NEUTROPHIL # 7.4 10^3/ul (1.6-7.5); NEUTROPHILS % 79.1 % (39.0-77.0); PLATELET COUNT 232 10^3/UL (140-415); RED BLOOD COUNT 3.58 10^6/ul (4.70-6.10); RED CELL DISTRIBUTION WIDTH 14.1 % (11.5-14.5); WHITE BLOOD COUNT 9.3 10^3/ul (4.8-10.8)
[2017-03-24 08:33] LABS: CALCIUM 8.2 mg/dl (8.4-10.2); CREATININE 0.59 mg/dl (0.61-1.24)
[2017-03-24] MEDS: LACTULOSE 30ML CUP GTB SCH ×2 (09:00→20:12)
[2017-03-24] MEDS: MAGNESIUM HYDROXIDE 30ML CUP GTB SCH (09:00)
[2017-03-24] MEDS: DOCUSATE SODIUM 10 MG/ML (10ML CUP) GTB SCH ×2 (09:00→20:12)
[2017-03-24] MEDS: POLYETHYLENE GLYCOL 17 GM PACKET GTB SCH (09:00)
[2017-03-24 09:29] LABS: POTASSIUM 2.7 mmol/L (3.5-5.1)
[2017-03-24] MEDS: NYSTATIN SUSP 5 ML CUP GTB SCH ×2 (09:41→20:10)
[2017-03-24] MEDS: LACTOBACILLUS RHAMNOSUS CAP GTB SCH (09:41)
[2017-03-24] MEDS: PSYLLIUM (SUGAR FREE) PACKET GTB SCH ×2 (09:41→20:12)
[2017-03-24] MEDS: APIXABAN 5 MG TABLET GTB SCH ×2 (09:41→20:10)
[2017-03-24] MEDS: CHLORHEXIDINE GLUCONATE 15 ML UD CUP MM SCH ×2 (09:41→20:11)
[2017-03-24] MEDS: AMLODIPINE 5 MG TAB GTB SCH (09:42)
[2017-03-24] MEDS: LISINOPRIL 20 MG TAB GTB SCH (09:42)
[2017-03-24] MEDS: SPIRONOLACTONE 25 MG TAB GTB SCH (09:42)
[2017-03-24] MEDS: MULTIVITAMINS 5 ML CUP GTB SCH (11:43)
[2017-03-24] MEDS: ACETAMINOPHEN 650MG/20.3ML CUP GTB PRN (13:02)
--- NOTE | 2017-03-24 14:48 | PN ---
DATE: 03/24/2017 INFECTIOUS DISEASE PROGRESS NOTE SUBJECTIVE: No acute events overnight. The patient is lying comfortably in bed, spiking fevers, wi th a T-max of 101.7. He is in no distress. So far blood and urine cultures have been negative. CT of the abdomen on admission revealed moderate to marked thickening of the distal esophagus, question able esophagitis, neoplasm could also have this appearance; moderate bilateral posterior lower lobe atelectasis, IVC filter and gastrostomy tube in place; moderate fecal stool and stool througho ut colon. INDWELLINGS: Trach, PEG, [place]. ANTIMICROBIALS: The patient is currently on vancomycin and Zosyn. PHYSICAL EXAMINATION: GENERAL: This is a chronically ill-appearing, young man, who is lying comfortably in bed. HEENT: He has a craniectomy noted. Buccal mucosa dry. NECK: Supple. Tracheostomy present. CHEST: Chest rise is symmetrical. Breath sounds diminished to the bases. HEART: S1, S2. ABDOMEN: Soft, bowel tones present. EXTREMITIES: Without cyanosis. ASSESSMENT: 1. Persistent fevers, questionable central. 2. Questionable esophagitis. 3. Persistent vegetative state, status post intracranial hemorrhage. 4. Fecal impaction. 5. Chronic respiratory failure and dysphagia. 6. History of substance abuse in the past. PLAN: The patient remains clinically unchanged, continuously spiking fevers. We are going to keep him on antibiotics. We will order a procalcitonin level, consider gastroenterology and pulmonary ev aluations. Dictated By: KATI DONOVAN DIRECTOR IMMUNOLOGY for KRISHNA TEMPLE/NTS Conf#: [id number] DID#: [id number]
[2017-03-24] MEDS: POTASSIUM CHLORIDE 250 ML IVPB SCH ×2 (15:01→18:50)
--- NOTE | 2017-03-24 16:08 | PN ---
Date/Time of Note Date/Time of Note DATE: 03/24/17 TIME: 16:07 Assessment/Plan VTE Prophylaxis VTE Prophylaxis Intervention: SCD's Lines/Catheters IV Catheter Type (from [facility]): Peripheral IV Assessment/Plan Chief Complaint/Hosp Course 1. Systemic inflammatory response syndrome -Source unclear at this time, Cx's neg at this point -ID consult appreciated, cont Broad spec Abx 2. Anoxic encephalopathy with chronic debility status post percutaneous endoscopic gastrostomy and tracheostomy as well as craniectomy -Pulmonology consultation for vent management -skull replacement when swelling resolves -PT eval 3. History of hypertension-stable -cont Rx 4. GIB-pt has coffee ground emesis -Hold Eliquis 5. History of substance abuse in the past Prophylaxis. Sequential compression devices Problems: Subjective 24 Hr Interval Summary Subjective hx not possible: pt non-verbal Exam/Review of Systems Vital Signs Vitals Vital Signs Date Time Temp Pulse Resp B/P Pulse Ox O2 Delivery O2 Flow Rate FiO2 03/24/17 16:05 99.2 105 18 149/61 96 03/24/17 08:29 Aerosol 5.0 28 Intake and Output 03/23/17 03/23/17 03/24/17 15:00 23:00 07:00 Intake Total 400 ml 400 ml Output Total 950 ml 850 ml Balance -550 ml -450 ml Exam Constitutional: non-verbal Respiratory: clear to auscultation Cardiovascular: regular rate and rhythm Gastrointestinal: soft Musculoskeletal: nl extremities to inspection Results Result Diagram: 03/24/17 0655 03/24/17 0655 Results 24 hrs Laboratory Tests Test 03/23/17 19:15 03/24/17 06:55 Vancomycin Level Trough 11.0 White Blood Count 9.3 # Red Blood Count 3.58 L Hemoglobin 10.5 L Hematocrit 32.4 L Mean Corpuscular Volume 90.5 Mean Corpuscular Hemoglobin 29.3 Mean Corpuscular Hemoglobin Concent 32.4 Red Cell Distribution Width 14.1 Platelet Count 232 Mean Platelet Volume 10.6 H Neutrophils % 79.1 H Lymphocytes % 11.5 L Monocytes % 8.5 Eosinophils % 0.2 Basophils % 0.3 Nucleated Red Blood Cells % 0.0 Neutrophils # 7.4 Lymphocytes # 1.1 Monocytes # 0.8 Eosinophils # 0.0 Basophils # 0.0 Nucleated Red Blood Cells # 0.0 Sodium Level 145 H Potassium Level 2.7 *L Chloride Level 116 H Carbon Dioxide Level 19 L Anion Gap 13 Blood Urea Nitrogen 13 Creatinine 0.59 L Glucose Level 87 Calcium Level 8.2 L Medications Medications Current Medications Ondansetron HCl 4 mg 4 mg Q6H PRN IV NAUSEA AND/OR VOMITING Last administered on 03/24/17 06:07; Admin Dose 4 MG; Start 03/22/17 at 18:00 Piperacillin Sod/ Tazobactam Sod (Zosyn 3.375gm/ 100 ml (Pmx)) 100 ml @ 200 mls /hr Q8 IVPB Last administered on 03/24/17 14:10; Admin Dose 200 MLS/HR; Start 03/22/17 at 22:00 Acetaminophen (Tylenol Liquid) 500 mg Q6H PRN GTB PAIN AND OR ELEVATED TEMP Last administered on 03/24/17 13:02; Admin Dose 500 MG; Start 03/22/17 at 18:00 Amlodipine Besylate (Norvasc) 5 mg DAILY GTB Last administered on 03/24/17 09: 42; Admin Dose 5 MG; Start 03/23/17 at 09:00 Apixaban (Eliquis) 5 mg BID GTB Last administered on 03/24/17 09:41; Admin Dose 5 MG; Start 03/22/17 at 21:00 Baclofen (Lioresal) 10 mg BID PRN GTB MUSCLE SPASMS; Start 03/22/17 at 18:00 Chlorhexidine Gluconate (Peridex) 15 ml Q12 MM Last administered on 03/24/17 09:41; Admin Dose 15 ML; Start 03/22/17 at 21:00 Docusate Sodium (Colace Liquid Cup) 100 mg BID GTB Last administered on 21:39; Admin Dose 100 MG; Start 03/22/17 at 21:00 Hydralazine HCl (Apresoline) 25 mg Q8 PRN GTB SBP>170; Start 03/22/17 at 18:00 Lactobacillus Acidophilus/ Rhamnosus (Culturelle) 1 cap DAILY GTB Last administered on 03/24/17 09:41; Admin Dose 1 CAP; Start 03/23/17 at 09:00 Lactulose (Enulose) 20 gm BID GTB Last administered on 03/23/17 21:39; Admin Dose 20 GM; Start 03/22/17 at 21:00 Lansoprazole (Prevacid) 30 mg DAILY@06 GTB Last administered on 03/24/17 06:26 ; Admin Dose 30 MG; Start 03/23/17 at 06:00 Levetiracetam (Keppra Liquid) 2,000 mg BID GTB Last administered on 03/24/17 11:43; Admin Dose 2,000 MG; Start 03/22/17 at 21:00 Lisinopril (Zestril) 20 mg DAILY GTB Last administered on 03/24/17 09:42; Admin Dose 20 MG; Start 03/22/17 at 22:00 Magnesium Hydroxide (Milk Of Mag) 30 ml DAILY GTB Last administered on 10:15; Admin Dose 30 ML; Start 03/23/17 at 09:00 Sodium Biphosphate/ Sodium Phosphate (Fleet Enema) 133 ml DAILY PRN [place] CONSTIPATION; Start 03/22/17 at 18:00 Nitroglycerin (Nitroglycerin 2% Oint) 1 inch Q6H PRN TD CHEST PAIN Last administered on 03/22/17 22:56; Admin Dose 1 INCH; Start 03/22/17 at 18:00 Nystatin (Nystatin Susp) 5 ml BID GTB Last administered on 03/24/17 09:41; Admin Dose 5 ML; Start 03/22/17 at 22:00 Oxycodone HCl (Roxicodone) 5 mg Q4H PRN GTB PAIN; Start 03/22/17 at 18:00 Polyethylene Glycol (Miralax) 17 gm DAILY GTB ; Start 03/23/17 at 09:00 Prochlorperazine (Compazine Inj) 5 mg Q6H PRN IM NAUSEA AND/OR VOMITING; Start 03/22/17 at 18:00 Simethicone (Mylicon) 80 mg Q6H PRN PEG DISTENSION/GAS/BLOATING; Start at 18:00 Spironolactone (Aldactone) 25 mg DAILY GTB Last administered on 03/24/17 09:42 ; Admin Dose 25 MG; Start 03/23/17 at 09:00 Topiramate (Topamax) 25 mg BID GTB Last administered on 03/24/17 09:47; Admin Dose 25 MG; Start 03/22/17 at 21:00 Multivitamins (Thera-Plus) 5 ml DAILY GTB Last administered on 03/24/17 11:43 ; Admin Dose 5 ML; Start 03/23/17 at 09:00 Psyllium Hydrophilic Mucilloid 1 pkt 1 pkt BID GTB Last administered on 09:41; Admin Dose 1 PKT; Start 03/22/17 at 22:00 Vancomycin HCl (Vancocin) 250 ml @ 125 mls/hr Q8H IVPB Last administered on 11:44; Admin Dose 125 MLS/HR; Start 03/23/17 at 04:00 Propranolol HCl 60 mg 60 mg Q6 GTB Last administered on 03/24/17 11:51; Admin Dose 60 MG; Start 03/22/17 at 22:00 Potassium Chloride (KCl 40 MEQ/250 ML NS) 250 ml @ 62.5 mls/hr Q4H IVPB Last administered on 03/24/17 15:01; Admin Dose 62.5 MLS/HR; Start 03/24/17 at 12:00 ; Stop 03/24/17 at 19:59 MONIQUE REYES March 24, 2017 16:08
[2017-03-25] VITALS (11 sets, daily range): BP systolic 123–153; BP diastolic 60–75; PULSE 83–107; RESP 16–36
[2017-03-25] MEDS: PROPRANOLOL 40 MG TAB GTB SCH ×4 (00:21→18:30)
[2017-03-25] MEDS: ACETAMINOPHEN 650MG/20.3ML CUP GTB PRN ×2 (00:21→09:20)
[2017-03-25] MEDS: VANCOMYCIN 1 GM in NS 250 ML IVPB SCH ×2 (03:22→13:08)
[2017-03-25] MEDS: IBUPROFEN 200 MG TAB PO PRN (03:28)
[2017-03-25] MEDS: PIPER-TAZO 3.375 GM IV (PMX) 100 ML IVPB SCH ×2 (06:01→15:11)
[2017-03-25] MEDS: LANSOPRAZOLE 30 MG CAP GTB SCH (06:05)
[2017-03-25 08:04] LABS: ADD SCAN DIFF NO
[2017-03-25 08:11] LABS: BASOPHILS % 0.4 % (0.0-2.0); EOSINOPHILS # 0.1 10^3/ul (0.0-0.5); EOSINOPHILS % 0.6 % (0.0-7.0); HEMATOCRIT 37.5 % (42.0-52.0); HEMOGLOBIN 12.2 g/dl (14.0-18.0); LYMPHOCYTES # 1.5 10^3/ul (0.8-2.9); LYMPHOCYTES % 15.7 % (15.0-51.0); MEAN CORPUSCULAR HEMOGLOBIN 29.5 pg (29.0-33.0); MEAN CORPUSCULAR HGB CONC 32.5 g/dl (32.0-37.0); MEAN CORPUSCULAR VOLUME 90.6 fl (82.0-101.0); MONOCYTE # 0.9 10^3/ul (0.3-0.9); MONOCYTES % 9.1 % (0.0-11.0); NEUTROPHIL # 6.9 10^3/ul (1.6-7.5); NEUTROPHILS % 73.6 % (39.0-77.0); PLATELET COUNT 280 10^3/UL (140-415); RED BLOOD COUNT 4.14 10^6/ul (4.70-6.10); RED CELL DISTRIBUTION WIDTH 14.1 % (11.5-14.5); WHITE BLOOD COUNT 9.4 10^3/ul (4.8-10.8)
[2017-03-25 08:39] LABS: CALCIUM 9.2 mg/dl (8.4-10.2); CREATININE 0.6 mg/dl (0.61-1.24); POTASSIUM 3.7 mmol/L (3.5-5.1)
[2017-03-25] MEDS: SPIRONOLACTONE 25 MG TAB GTB SCH (09:19)
[2017-03-25] MEDS: LACTULOSE 30ML CUP GTB SCH ×2 (09:20→20:27)
[2017-03-25] MEDS: LACTOBACILLUS RHAMNOSUS CAP GTB SCH (09:20)
[2017-03-25] MEDS: DOCUSATE SODIUM 10 MG/ML (10ML CUP) GTB SCH ×2 (09:20→20:26)
[2017-03-25] MEDS: CHLORHEXIDINE GLUCONATE 15 ML UD CUP MM SCH ×2 (09:20→20:27)
[2017-03-25] MEDS: MAGNESIUM HYDROXIDE 30ML CUP GTB SCH (09:20)
[2017-03-25] MEDS: AMLODIPINE 5 MG TAB GTB SCH (09:20)
[2017-03-25] MEDS: APIXABAN 5 MG TABLET GTB SCH ×2 (09:20→22:30)
[2017-03-25] MEDS: NYSTATIN SUSP 5 ML CUP GTB SCH ×2 (09:20→22:30)
[2017-03-25] MEDS: MULTIVITAMINS 5 ML CUP GTB SCH (09:21)
[2017-03-25] MEDS: POLYETHYLENE GLYCOL 17 GM PACKET GTB SCH (09:21)
[2017-03-25] MEDS: PSYLLIUM (SUGAR FREE) PACKET GTB SCH ×2 (09:21→20:27)
[2017-03-25] MEDS: LEVETIRACETAM (100 MG/ML) 5ML CUP GTB SCH ×2 (09:21→22:30)
[2017-03-25] MEDS: TOPIRAMATE 25 MG TAB GTB SCH ×2 (09:27→20:27)
[2017-03-25] MEDS: LISINOPRIL 20 MG TAB GTB SCH (09:28)
--- NOTE | 2017-03-25 14:43 | PN ---
Date/Time of Note Date/Time of Note DATE: 03/25/17 TIME: 14:42 Assessment/Plan VTE Prophylaxis VTE Prophylaxis Intervention: other Lines/Catheters IV [facility] Type [facility] Peripheral IV Assessment/Plan Chief Complaint/Hosp Course 1. Systemic inflammatory response syndrome with persistent fever and tachycardia -Source unclear at this time, Cx's neg at this point -ID consult appreciated, plan is to DC antibiotics today and monitor 2. Anoxic encephalopathy with chronic debility status post percutaneous endoscopic gastrostomy and tracheostomy as well as craniectomy -Pulmonology consultation for vent management -skull replacement when swelling resolves -PT eval 3. History of hypertension-stable -cont Rx 4. GIB-pt had coffee ground emesis-now resolved -Continue to hold Eliquis 5. History of substance abuse in the past Prophylaxis: Eliquis when resumed Problems: Subjective 24 Hr Interval Summary Subjective hx not possible: pt non-verbal Exam/Review of Systems Vital Signs Vitals Vital Signs Date Time Temp Pulse Resp B/P Pulse Ox O2 Delivery O2 Flow Rate FiO2 03/25/17 12:57 107 03/25/17 12:53 98 Aerosol 28 T Tube 03/25/17 12:08 100.3 21 134/74 03/25/17 09:55 5.0 Intake and Output 03/24/17 03/24/17 03/25/17 15:00 23:00 07:00 Intake Total 325 ml 1650 ml Output Total 800 ml 250 ml Balance -475 ml 1400 ml Exam Constitutional: non-verbal Respiratory: clear to auscultation Cardiovascular: regular rate and rhythm Gastrointestinal: soft, No distended Musculoskeletal: nl extremities to inspection Results Result Diagram: 03/25/17 0631 03/25/17 0631 Results 24 hrs Laboratory Tests Test 03/25/17 06:31 White Blood Count 9.4 Red Blood Count 4.14 L Hemoglobin 12.2 L Hematocrit 37.5 L Mean Corpuscular Volume 90.6 Mean Corpuscular Hemoglobin 29.5 Mean Corpuscular Hemoglobin Concent 32.5 Red Cell Distribution Width 14.1 Platelet Count 280 # Mean Platelet Volume 11.0 H Neutrophils % 73.6 Lymphocytes % 15.7 Monocytes % 9.1 Eosinophils % 0.6 Basophils % 0.4 Nucleated Red Blood Cells % 0.0 Neutrophils # 6.9 Lymphocytes # 1.5 Monocytes # 0.9 Eosinophils # 0.1 Basophils # 0.0 Nucleated Red Blood Cells # 0.0 Sodium Level 146 H Potassium Level 3.7 Chloride Level 117 H Carbon Dioxide Level 19 L Anion Gap 14 Blood Urea Nitrogen 11 Creatinine 0.60 L Glucose Level 115 Calcium Level 9.2 Medications Medications Current Medications Ondansetron HCl 4 mg 4 mg Q6H PRN IV NAUSEA AND/OR VOMITING Last administered on 03/24/17 06:07; Admin Dose 4 MG; Start 03/22/17 at 18:00 Piperacillin Sod/ Tazobactam Sod (Zosyn 3.375gm/ 100 ml (Pmx)) 100 ml @ 200 mls /hr Q8 IVPB Last administered on 03/25/17 06:01; Admin Dose 200 MLS/HR; Start 03/22/17 at 22:00 Acetaminophen (Tylenol Liquid) 500 mg Q6H PRN GTB PAIN AND OR ELEVATED TEMP Last administered on 03/25/17 09:20; Admin Dose 500 MG; Start 03/22/17 at 18:00 Amlodipine Besylate (Norvasc) 5 mg DAILY GTB Last administered on 03/25/17 09: 20; Admin Dose 5 MG; Start 03/23/17 at 09:00 Apixaban (Eliquis) 5 mg BID GTB Last administered on 03/25/17 09:20; Admin Dose 5 MG; Start 03/22/17 at 21:00 Baclofen (Lioresal) 10 mg BID PRN GTB MUSCLE SPASMS; Start 03/22/17 at 18:00 Chlorhexidine Gluconate (Peridex) 15 ml Q12 MM Last administered on 03/25/17 09:20; Admin Dose 15 ML; Start 03/22/17 at 21:00 Docusate Sodium (Colace Liquid Cup) 100 mg BID GTB Last administered on 09:20; Admin Dose 100 MG; Start 03/22/17 at 21:00 Hydralazine HCl (Apresoline) 25 mg Q8 PRN GTB SBP>170; Start 03/22/17 at 18:00 Lactobacillus Acidophilus/ Rhamnosus (Culturelle) 1 cap DAILY GTB Last administered on 03/25/17 09:20; Admin Dose 1 CAP; Start 03/23/17 at 09:00 Lactulose (Enulose) 20 gm BID GTB Last administered on 03/25/17 09:20; Admin Dose 20 GM; Start 03/22/17 at 21:00 Lansoprazole (Prevacid) 30 mg DAILY@06 GTB Last administered on 03/25/17 06:05 ; Admin Dose 30 MG; Start 03/23/17 at 06:00 Levetiracetam (Keppra Liquid) 2,000 mg BID GTB Last administered on 03/25/17 09:21; Admin Dose 2,000 MG; Start 03/22/17 at 21:00 Lisinopril (Zestril) 20 mg DAILY GTB Last administered on 03/25/17 09:28; Admin Dose 20 MG; Start 03/22/17 at 22:00 Magnesium Hydroxide (Milk Of Mag) 30 ml DAILY GTB Last administered on 09:20; Admin Dose 30 ML; Start 03/23/17 at 09:00 Sodium Biphosphate/ Sodium Phosphate (Fleet Enema) 133 ml DAILY PRN [place] CONSTIPATION; Start 03/22/17 at 18:00 Nitroglycerin (Nitroglycerin 2% Oint) 1 inch Q6H PRN TD CHEST PAIN Last administered on 03/22/17 22:56; Admin Dose 1 INCH; Start 03/22/17 at 18:00 Nystatin (Nystatin Susp) 5 ml BID GTB Last administered on 03/25/17 09:20; Admin Dose 5 ML; Start 03/22/17 at 22:00 Oxycodone HCl (Roxicodone) 5 mg Q4H PRN GTB PAIN; Start 03/22/17 at 18:00 Polyethylene Glycol (Miralax) 17 gm DAILY GTB Last administered on 03/25/17 09 :21; Admin Dose 17 GM; Start 03/23/17 at 09:00 Prochlorperazine (Compazine Inj) 5 mg Q6H PRN IM NAUSEA AND/OR VOMITING; Start 03/22/17 at 18:00 Simethicone (Mylicon) 80 mg Q6H PRN PEG DISTENSION/GAS/BLOATING; Start at 18:00 Spironolactone (Aldactone) 25 mg DAILY GTB Last administered on 03/25/17 09:19 ; Admin Dose 25 MG; Start 03/23/17 at 09:00 Topiramate (Topamax) 25 mg BID GTB Last administered on 03/25/17 09:27; Admin Dose 25 MG; Start 03/22/17 at 21:00 Multivitamins (Thera-Plus) 5 ml DAILY GTB Last administered on 03/25/17 09:21 ; Admin Dose 5 ML; Start 03/23/17 at 09:00 Psyllium Hydrophilic Mucilloid 1 pkt 1 pkt BID GTB Last administered on 09:21; Admin Dose 1 PKT; Start 03/22/17 at 22:00 Vancomycin HCl (Vancocin) 250 ml @ 125 mls/hr Q8H IVPB Last administered on 13:08; Admin Dose 125 MLS/HR; Start 03/23/17 at 04:00 Propranolol HCl (Inderal) 60 mg Q6 GTB Last administered on 03/25/17 13:09; Admin Dose 60 MG; Start 03/22/17 at 22:00 Ibuprofen (Motrin) 400 mg ONCE PRN PO PAIN OR TEMP ABOVE 38C Last administered on 03/25/17 03:28; Admin Dose 400 MG; Start 03/25/17 at 02:00 MONIQUE REYES March 25, 2017 14:43
--- NOTE | 2017-03-25 19:02 | CONS ---
DATE OF ADMISSION: 03/22/2017 DATE OF CONSULTATION: 03/25/2017 TYPE OF CONSULTATION: Pulmonary. PRIMARY PHYSICIAN: Tomasz Deras MD HISTORY OF PRESENT ILLNESS: Briefly, this is a 21-year-old gentleman with a history of anoxic brain injury, status post a drug overdose at [facility] over a month prior, status post tracheostomy and percut aneous endoscopic gastrostomy, who was recently transferred to [place] after a prolonged stay at [facility] . Upon arrival at [place] he was transferred to [facility] Emergency Room for findings of f ever, tachycardia. His initial workup has been unrevealing with no obvious evidence of infection. PAST MEDICAL HISTORY: Is as noted above, anoxic brain injury likely due to a drug overdose. PAST SURGICAL HISTORY: IVC filter placement, thrombectomy craniectomy for possible herniation. MEDICATIONS: Please see MAR. ALLERGIES: SHRIMP AND PRASUGREL. FAMILY HISTORY: None. SOCIAL HISTORY: History of tobacco abuse and heroin. REVIEW OF SYSTEMS: Unable to obtain given patient's mental status. PHYSICAL EXAMINATION: VITAL SIGNS: Heart rate is 107, blood pressure 134/74, oxygen saturation is 98% on 28%. trach maria guadalupe ar. Temperature is 100.3. HEENT: Tracheostomy in place. NECK: Supple, no thyromegaly. CARDIOVASCULAR: Tachycardic, S1 and S2. LUNGS: Clear to auscultation bilaterally. ABDOMEN: Soft. G-tube site is clear. EXTREMITIES: Contracted with no cyanosis or clubbing. LABORATORY DATA: WBC is 9.4, hemoglobin is 12.2, platelets are 280, BUN is 11, creatinine is 0.6. Coags are within normal limits. Chest x-ray shows no obvious infiltrates with a tracheostomy in carisa ce. CT of the abdomen and pelvis shows a dilated, thickened esophagus, otherwise shows a gastrostom y tube and IVC filter placement and moderate amounts of stool in the rectum. IMPRESSION: 1. Fevers, leukocytosis, and tachycardia consistent with sepsis; however, there is no obvious sourc e. Possibilities may include a central source versus possibility of venous thrombotic disease. 2. Status post anoxic brain injury with persistent vegetative state. 3. Status post tracheostomy now, not dependent on mechanical ventilation and requiring a trach maria guadalupe ar. 4. Fecal impaction. 5. History of substance abuse. RECOMMENDATIONS: 1. Chest PT and suctioning as needed. 2. Bronchodilators. 3. Continue via trach collar for the time being. 4. Antibiotics as per ID. 5. Follow up cultures. Dictated By: BARBARA DODGE MD NK/MAKAYLA Conf#: [id number] DID#: [id number] CC: TOMASZ DERAS MD; MARSHA LAL MD;*EndCC*
--- NOTE | 2017-03-25 19:43 | CONS ---
Date/Time of Note Date/Time of Note DATE: 03/25/17 TIME: 19:40 Assessment/Plan Assessment/Plan Chief Complaint/Hosp Course SUBJECTIVE: No acute events overnight. The patient is lying comfortably in bed , on/off fevers INDWELLINGS: Trach, PEG, Talley. ANTIMICROBIALS: Vancomycin and Zosyn. PHYSICAL EXAMINATION: GENERAL: This is a chronically ill-appearing, young man, who is lying comfortably in bed. HEENT: He has a craniectomy noted. Buccal mucosa dry. NECK: Supple. Tracheostomy present. CHEST: Chest rise is symmetrical. Breath sounds diminished to the bases. HEART: S1, S2. ABDOMEN: Soft, bowel tones present. EXTREMITIES: Without cyanosis. ASSESSMENT: 1. Persistent fevers, possibly central. 2. Questionable esophagitis. 3. Persistent vegetative state, status post intracranial hemorrhage. 4. Fecal impaction. 5. Chronic respiratory failure and dysphagia. 6. History of substance abuse in the past. PLAN: The patient remains clinically unchanged, with on/off fevers. All cx's negative, CXR negative, pending procalcitonin level. Discussed with mother the option for WBC nuclear scan, she wants to wait for procalcitonin level. Dc abx DW staff Problems: Consultation Date/Type/Reason Admit Date/Time March 22, 2017 at 14:56 Initial Consult Date Type of Consultation: ID Exam/Review of Systems Vital Signs Vitals Vital Signs Date Time Temp Pulse Resp B/P Pulse Ox O2 Delivery O2 Flow Rate FiO2 03/25/17 19:34 100 22 97 Aerosol 5.0 28 T Tube 03/25/17 15:39 99.3 130/74 Intake and Output 03/24/17 03/24/17 03/25/17 15:00 23:00 07:00 Intake Total 325 ml 1650 ml Output Total 800 ml 250 ml Balance -475 ml 1400 ml Results Result Diagram: 03/25/17 0631 03/25/17 0631 Results 24 hrs Laboratory Tests Test 03/25/17 06:31 White Blood Count 9.4 Red Blood Count 4.14 L Hemoglobin 12.2 L Hematocrit 37.5 L Mean Corpuscular Volume 90.6 Mean Corpuscular Hemoglobin 29.5 Mean Corpuscular Hemoglobin Concent 32.5 Red Cell Distribution Width 14.1 Platelet Count 280 # Mean Platelet Volume 11.0 H Neutrophils % 73.6 Lymphocytes % 15.7 Monocytes % 9.1 Eosinophils % 0.6 Basophils % 0.4 Nucleated Red Blood Cells % 0.0 Neutrophils # 6.9 Lymphocytes # 1.5 Monocytes # 0.9 Eosinophils # 0.1 Basophils # 0.0 Nucleated Red Blood Cells # 0.0 Sodium Level 146 H Potassium Level 3.7 Chloride Level 117 H Carbon Dioxide Level 19 L Anion Gap 14 Blood Urea Nitrogen 11 Creatinine 0.60 L Glucose Level 115 Calcium Level 9.2 Medications Medications Current Medications Ondansetron HCl 4 mg 4 mg Q6H PRN IV NAUSEA AND/OR VOMITING Last administered on 03/24/17 06:07; Admin Dose 4 MG; Start 03/22/17 at 18:00 Piperacillin Sod/ Tazobactam Sod (Zosyn 3.375gm/ 100 ml (Pmx)) 100 ml @ 200 mls /hr Q8 IVPB Last administered on 03/25/17 15:11; Admin Dose 200 MLS/HR; Start 03/22/17 at 22:00 Acetaminophen (Tylenol Liquid) 500 mg Q6H PRN GTB PAIN AND OR ELEVATED TEMP Last administered on 03/25/17 09:20; Admin Dose 500 MG; Start 03/22/17 at 18:00 Amlodipine Besylate (Norvasc) 5 mg DAILY GTB Last administered on 03/25/17 09: 20; Admin Dose 5 MG; Start 03/23/17 at 09:00 Apixaban (Eliquis) 5 mg BID GTB Last administered on 03/25/17 09:20; Admin Dose 5 MG; Start 03/22/17 at 21:00 Baclofen (Lioresal) 10 mg BID PRN GTB MUSCLE SPASMS; Start 03/22/17 at 18:00 Chlorhexidine Gluconate (Peridex) 15 ml Q12 MM Last administered on 03/25/17 09:20; Admin Dose 15 ML; Start 03/22/17 at 21:00 Docusate Sodium (Colace Liquid Cup) 100 mg BID GTB Last administered on 09:20; Admin Dose 100 MG; Start 03/22/17 at 21:00 Hydralazine HCl (Apresoline) 25 mg Q8 PRN GTB SBP>170; Start 03/22/17 at 18:00 Lactobacillus Acidophilus/ Rhamnosus (Culturelle) 1 cap DAILY GTB Last administered on 03/25/17 09:20; Admin Dose 1 CAP; Start 03/23/17 at 09:00 Lactulose (Enulose) 20 gm BID GTB Last administered on 03/25/17 09:20; Admin Dose 20 GM; Start 03/22/17 at 21:00 Lansoprazole (Prevacid) 30 mg DAILY@06 GTB Last administered on 03/25/17 06:05 ; Admin Dose 30 MG; Start 03/23/17 at 06:00 Levetiracetam (Keppra Liquid) 2,000 mg BID GTB Last administered on 03/25/17 09:21; Admin Dose 2,000 MG; Start 03/22/17 at 21:00 Lisinopril (Zestril) 20 mg DAILY GTB Last administered on 03/25/17 09:28; Admin Dose 20 MG; Start 03/22/17 at 22:00 Magnesium Hydroxide (Milk Of Mag) 30 ml DAILY GTB Last administered on 09:20; Admin Dose 30 ML; Start 03/23/17 at 09:00 Sodium Biphosphate/ Sodium Phosphate (Fleet Enema) 133 ml DAILY PRN [place] CONSTIPATION; Start 03/22/17 at 18:00 Nitroglycerin (Nitroglycerin 2% Oint) 1 inch Q6H PRN TD CHEST PAIN Last administered on 03/22/17 22:56; Admin Dose 1 INCH; Start 03/22/17 at 18:00 Nystatin (Nystatin Susp) 5 ml BID GTB Last administered on 03/25/17 09:20; Admin Dose 5 ML; Start 03/22/17 at 22:00 Oxycodone HCl (Roxicodone) 5 mg Q4H PRN GTB PAIN; Start 03/22/17 at 18:00 Polyethylene Glycol (Miralax) 17 gm DAILY GTB Last administered on 03/25/17 09 :21; Admin Dose 17 GM; Start 03/23/17 at 09:00 Prochlorperazine (Compazine Inj) 5 mg Q6H PRN IM NAUSEA AND/OR VOMITING; Start 03/22/17 at 18:00 Simethicone (Mylicon) 80 mg Q6H PRN PEG DISTENSION/GAS/BLOATING; Start at 18:00 Spironolactone (Aldactone) 25 mg DAILY GTB Last administered on 03/25/17 09:19 ; Admin Dose 25 MG; Start 03/23/17 at 09:00 Topiramate (Topamax) 25 mg BID GTB Last administered on 03/25/17 09:27; Admin Dose 25 MG; Start 03/22/17 at 21:00 Multivitamins (Thera-Plus) 5 ml DAILY GTB Last administered on 03/25/17 09:21 ; Admin Dose 5 ML; Start 03/23/17 at 09:00 Psyllium Hydrophilic Mucilloid 1 pkt 1 pkt BID GTB Last administered on 09:21; Admin Dose 1 PKT; Start 03/22/17 at 22:00 Vancomycin HCl (Vancocin) 250 ml @ 125 mls/hr Q8H IVPB Last administered on 13:08; Admin Dose 125 MLS/HR; Start 03/23/17 at 04:00 Propranolol HCl (Inderal) 60 mg Q6 GTB Last administered on 03/25/17 18:30; Admin Dose 60 MG; Start 03/22/17 at 22:00 Ibuprofen (Motrin) 400 mg ONCE PRN PO PAIN OR TEMP ABOVE 38C Last administered on 03/25/17 03:28; Admin Dose 400 MG; Start 03/25/17 at 02:00 KATI DONOVAN NP March 25, 2017 19:43
[2017-03-26] VITALS (12 sets, daily range): BP systolic 123–144; BP diastolic 62–98; PULSE 68–93; RESP 16–36
[2017-03-26] MEDS: LANSOPRAZOLE 30 MG CAP GTB SCH (05:25)
[2017-03-26] MEDS: PROPRANOLOL 40 MG TAB GTB SCH ×5 (05:25→23:44)
[2017-03-26 07:32] LABS: ADD SCAN DIFF NO
[2017-03-26 07:39] LABS: BASOPHILS % 0.2 % (0.0-2.0); EOSINOPHILS # 0.2 10^3/ul (0.0-0.5); EOSINOPHILS % 2.1 % (0.0-7.0); HEMATOCRIT 36.4 % (42.0-52.0); HEMOGLOBIN 11.8 g/dl (14.0-18.0); LYMPHOCYTES # 1.6 10^3/ul (0.8-2.9); LYMPHOCYTES % 18.7 % (15.0-51.0); MEAN CORPUSCULAR HEMOGLOBIN 28.9 pg (29.0-33.0); MEAN CORPUSCULAR HGB CONC 32.4 g/dl (32.0-37.0); MEAN PLATELET VOLUME 10.8 fl (7.4-10.4); MONOCYTE # 0.6 10^3/ul (0.3-0.9); MONOCYTES % 7.6 % (0.0-11.0); NEUTROPHILS % 70.9 % (39.0-77.0); PLATELET COUNT 267 10^3/UL (140-415); RED BLOOD COUNT 4.09 10^6/ul (4.70-6.10); RED CELL DISTRIBUTION WIDTH 14.2 % (11.5-14.5); WHITE BLOOD COUNT 8.5 10^3/ul (4.8-10.8)
[2017-03-26 08:01] LABS: CALCIUM 9.1 mg/dl (8.4-10.2); CREATININE 0.54 mg/dl (0.61-1.24); POTASSIUM 3.4 mmol/L (3.5-5.1)
[2017-03-26] MEDS: APIXABAN 5 MG TABLET GTB SCH ×3 (09:00→21:00)
[2017-03-26] MEDS: LEVETIRACETAM (100 MG/ML) 5ML CUP GTB SCH ×2 (09:54→22:26)
[2017-03-26] MEDS: AMLODIPINE 5 MG TAB GTB SCH (09:54)
[2017-03-26] MEDS: POLYETHYLENE GLYCOL 17 GM PACKET GTB SCH (09:54)
[2017-03-26] MEDS: DOCUSATE SODIUM 10 MG/ML (10ML CUP) GTB SCH ×2 (09:54→22:26)
[2017-03-26] MEDS: NYSTATIN SUSP 5 ML CUP GTB SCH ×2 (09:54→22:26)
[2017-03-26] MEDS: PSYLLIUM (SUGAR FREE) PACKET GTB SCH ×2 (09:54→21:00)
[2017-03-26] MEDS: MAGNESIUM HYDROXIDE 30ML CUP GTB SCH (09:54)
[2017-03-26] MEDS: LACTULOSE 30ML CUP GTB SCH ×2 (09:54→21:00)
[2017-03-26] MEDS: SPIRONOLACTONE 25 MG TAB GTB SCH (09:55)
[2017-03-26] MEDS: LACTOBACILLUS RHAMNOSUS CAP GTB SCH (09:55)
[2017-03-26] MEDS: LISINOPRIL 20 MG TAB GTB SCH (09:55)
[2017-03-26] MEDS: CHLORHEXIDINE GLUCONATE 15 ML UD CUP MM SCH ×2 (09:55→22:29)
[2017-03-26] MEDS: TOPIRAMATE 25 MG TAB GTB SCH ×2 (09:58→22:26)
[2017-03-26] MEDS: MULTIVITAMINS 5 ML CUP GTB SCH (09:58)
--- NOTE | 2017-03-26 13:57 | CONS ---
Date/Time of Note Date/Time of Note DATE: 03/26/17 TIME: 13:56 Consult Date/Type/Reason Admit Date/Time March 22, 2017 at 14:56 Initial Consult Date Type of Consultation: Pulm Subjective No overnight events. Objective Vital Signs Date Time Temp Pulse Resp B/P Pulse Ox O2 Delivery O2 Flow Rate FiO2 03/26/17 13:30 5.0 28 03/26/17 13:30 97 20 99 Aerosol 03/26/17 11:53 98.2 141/77 Intake and Output 03/25/17 03/25/17 03/26/17 15:00 23:00 07:00 Intake Total 250 ml 1460 ml 1360 ml Output Total 900 ml 950 ml Balance 250 ml 560 ml 410 ml Exam HEENT: Tracheostomy in place. NECK: Supple, no thyromegaly. CARDIOVASCULAR: Tachycardic, S1 and S2. LUNGS: Clear to auscultation bilaterally. ABDOMEN: Soft. G-tube site is clear. EXTREMITIES: Contracted with no cyanosis or clubbing. Results/Medications Result Diagram: 03/26/17 0643 03/26/17 0643 Results 24 hrs Laboratory Tests Test 03/26/17 06:43 White Blood Count 8.5 Red Blood Count 4.09 L Hemoglobin 11.8 L Hematocrit 36.4 L Mean Corpuscular Volume 89.0 Mean Corpuscular Hemoglobin 28.9 L Mean Corpuscular Hemoglobin Concent 32.4 Red Cell Distribution Width 14.2 Platelet Count 267 Mean Platelet Volume 10.8 H Neutrophils % 70.9 Lymphocytes % 18.7 Monocytes % 7.6 Eosinophils % 2.1 Basophils % 0.2 Nucleated Red Blood Cells % 0.0 Neutrophils # 6.0 Lymphocytes # 1.6 Monocytes # 0.6 Eosinophils # 0.2 Basophils # 0.0 Nucleated Red Blood Cells # 0.0 Sodium Level 144 Potassium Level 3.4 L Chloride Level 116 H Carbon Dioxide Level 21 Anion Gap 10 Blood Urea Nitrogen 9 Creatinine 0.54 L Glucose Level 112 Calcium Level 9.1 Medications Current Medications Ondansetron HCl (Zofran Inj) 4 mg Q6H PRN IV NAUSEA AND/OR VOMITING Last administered on 03/24/17t 06:07; Admin Dose 4 MG; Start 03/22/17 at 18:00 Acetaminophen (Tylenol Liquid) 500 mg Q6H PRN GTB PAIN AND OR ELEVATED TEMP Last administered on 03/25/17 09:20; Admin Dose 500 MG; Start 03/22/17 at 18:00 Amlodipine Besylate (Norvasc) 5 mg DAILY GTB Last administered on 03/26/17 09: 54; Admin Dose 5 MG; Start 03/23/17 at 09:00 Apixaban (Eliquis) 5 mg BID GTB Last administered on 03/25/17 22:30; Admin Dose 5 MG; Start 03/22/17 at 21:00 Baclofen (Lioresal) 10 mg BID PRN GTB MUSCLE SPASMS; Start 03/22/17 at 18:00 Chlorhexidine Gluconate (Peridex) 15 ml Q12 MM Last administered on 03/26/17 09:55; Admin Dose 15 ML; Start 03/22/17 at 21:00 Docusate Sodium (Colace Liquid Cup) 100 mg BID GTB Last administered on 09:54; Admin Dose 100 MG; Start 03/22/17 at 21:00 Hydralazine HCl (Apresoline) 25 mg Q8 PRN GTB SBP>170; Start 03/22/17 at 18:00 Lactobacillus Acidophilus/ Rhamnosus (Culturelle) 1 cap DAILY GTB Last administered on 03/26/17 09:55; Admin Dose 1 CAP; Start 03/23/17 at 09:00 Lactulose (Enulose) 20 gm BID GTB Last administered on 03/26/17 09:54; Admin Dose 20 GM; Start 03/22/17 at 21:00 Lansoprazole (Prevacid) 30 mg DAILY@06 GTB Last administered on 03/26/17 05:25 ; Admin Dose 30 MG; Start 03/23/17 at 06:00 Levetiracetam (Keppra Liquid) 2,000 mg BID GTB Last administered on 03/26/17 09:54; Admin Dose 2,000 MG; Start 03/22/17 at 21:00 Lisinopril (Zestril) 20 mg DAILY GTB Last administered on 03/26/17 09:55; Admin Dose 20 MG; Start 03/22/17 at 22:00 Magnesium Hydroxide (Milk Of Mag) 30 ml DAILY GTB Last administered on 09:54; Admin Dose 30 ML; Start 03/23/17 at 09:00 Sodium Biphosphate/ Sodium Phosphate (Fleet Enema) 133 ml DAILY PRN [place] CONSTIPATION; Start 03/22/17 at 18:00 Nitroglycerin (Nitroglycerin 2% Oint) 1 inch Q6H PRN TD CHEST PAIN Last administered on 03/22/17 22:56; Admin Dose 1 INCH; Start 03/22/17 at 18:00 Nystatin (Nystatin Susp) 5 ml BID GTB Last administered on 03/26/17 09:54; Admin Dose 5 ML; Start 03/22/17 at 22:00 Oxycodone HCl (Roxicodone) 5 mg Q4H PRN GTB PAIN; Start 03/22/17 at 18:00 Polyethylene Glycol (Miralax) 17 gm DAILY GTB Last administered on 03/26/17 09 :54; Admin Dose 17 GM; Start 03/23/17 at 09:00 Prochlorperazine (Compazine Inj) 5 mg Q6H PRN IM NAUSEA AND/OR VOMITING; Start 03/22/17 at 18:00 Simethicone (Mylicon) 80 mg Q6H PRN PEG DISTENSION/GAS/BLOATING; Start at 18:00 Spironolactone (Aldactone) 25 mg DAILY GTB Last administered on 03/26/17 09:55 ; Admin Dose 25 MG; Start 03/23/17 at 09:00 Topiramate (Topamax) 25 mg BID GTB Last administered on 03/26/17 09:58; Admin Dose 25 MG; Start 03/22/17 at 21:00 Multivitamins (Thera-Plus) 5 ml DAILY GTB Last administered on 03/26/17 09:58 ; Admin Dose 5 ML; Start 03/23/17 at 09:00 Psyllium Hydrophilic Mucilloid (Metamucil (Sugar Free)) 1 pkt BID GTB Last administered on 03/26/17 09:54; Admin Dose 1 PKT; Start 03/22/17 at 22:00 Propranolol HCl (Inderal) 60 mg Q6 GTB Last administered on 03/26/17 12:32; Admin Dose 60 MG; Start 03/22/17 at 22:00 Ibuprofen (Motrin) 400 mg ONCE PRN PO PAIN OR TEMP ABOVE 38C Last administered on 03/25/17t 03:28; Admin Dose 400 MG; Start 03/25/17 at 02:00 Assessment/Plan Additional Assessment/Plan IMPRESSION: 1. Fevers, leukocytosis, and tachycardia consistent with sepsis; however, there is no obvious source. Possibilities may include a central source versus possibility of venous thrombotic disease. 2. Status post anoxic brain injury with persistent vegetative state. 3. Status post tracheostomy now, not dependent on mechanical ventilation and requiring a trach collar. 4. Fecal impaction. 5. History of substance abuse. RECS: 1. Chest PT and suctioning as needed. 2. Bronchodilators. 3. Continue via trach collar for the time being. 4. Antibiotics as per ID. 5. BARBARA Foster MD March 26, 2017 13:57
[2017-03-26] MEDS ORDERED: POTASSIUM CHLORIDE 20 MEQ POWDER FOR ORAL SOLN GTB ONE (14:30)
--- NOTE | 2017-03-26 15:33 | CONS ---
Date/Time of Note Date/Time of Note DATE: 03/26/17 TIME: 15:31 Assessment/Plan Assessment/Plan Chief Complaint/Hosp Course SUBJECTIVE: No acute events overnight. Continues to have on/off fevers INDWELLINGS: Trach, PEG, Talley. PHYSICAL EXAMINATION: GENERAL: This is a chronically ill-appearing, young man, who is lying comfortably in bed. HEENT: He has a craniectomy noted. Buccal mucosa dry. NECK: Supple. Tracheostomy present. CHEST: Chest rise is symmetrical. Breath sounds diminished to the bases. HEART: S1, S2. ABDOMEN: Soft, bowel tones present. EXTREMITIES: Without cyanosis. ASSESSMENT: 1. Persistent fevers, possibly central. 2. Questionable esophagitis. 3. Persistent vegetative state, status post intracranial hemorrhage. 4. Fecal impaction. 5. Chronic respiratory failure and dysphagia. 6. History of substance abuse in the past. PLAN: The patient remains clinically unchanged, with on/off fevers. All cx's negative, CXR negative, pending procalcitonin level==> ordered 03/24. Consider wbc labeled nuclear scan, observe off abx DW staff Problems: Consultation Date/Type/Reason Admit Date/Time March 22, 2017 at 14:56 Type of Consultation: ID Exam/Review of Systems Vital Signs Vitals Vital Signs Date Time Temp Pulse Resp B/P Pulse Ox O2 Delivery O2 Flow Rate FiO2 03/26/17 13:30 5.0 28 03/26/17 13:30 97 20 99 Aerosol 03/26/17 11:53 98.2 141/77 Intake and Output 03/25/17 03/25/17 03/26/17 15:00 23:00 07:00 Intake Total 250 ml 1460 ml 1360 ml Output Total 900 ml 950 ml Balance 250 ml 560 ml 410 ml Results Result Diagram: 03/26/17 0643 03/26/17 0643 Results 24 hrs Laboratory Tests Test 03/26/17 06:43 White Blood Count 8.5 Red Blood Count 4.09 L Hemoglobin 11.8 L Hematocrit 36.4 L Mean Corpuscular Volume 89.0 Mean Corpuscular Hemoglobin 28.9 L Mean Corpuscular Hemoglobin Concent 32.4 Red Cell Distribution Width 14.2 Platelet Count 267 Mean Platelet Volume 10.8 H Neutrophils % 70.9 Lymphocytes % 18.7 Monocytes % 7.6 Eosinophils % 2.1 Basophils % 0.2 Nucleated Red Blood Cells % 0.0 Neutrophils # 6.0 Lymphocytes # 1.6 Monocytes # 0.6 Eosinophils # 0.2 Basophils # 0.0 Nucleated Red Blood Cells # 0.0 Sodium Level 144 Potassium Level 3.4 L Chloride Level 116 H Carbon Dioxide Level 21 Anion Gap 10 Blood Urea Nitrogen 9 Creatinine 0.54 L Glucose Level 112 Calcium Level 9.1 Medications Medications Current Medications Ondansetron HCl (Zofran Inj) 4 mg Q6H PRN IV NAUSEA AND/OR VOMITING Last administered on 03/24/17 06:07; Admin Dose 4 MG; Start 03/22/17 at 18:00 Acetaminophen (Tylenol Liquid) 500 mg Q6H PRN GTB PAIN AND OR ELEVATED TEMP Last administered on 03/25/17 09:20; Admin Dose 500 MG; Start 03/22/17 at 18:00 Amlodipine Besylate (Norvasc) 5 mg DAILY GTB Last administered on 03/26/17 09: 54; Admin Dose 5 MG; Start 03/23/17 at 09:00 Apixaban (Eliquis) 5 mg BID GTB Last administered on 03/25/17 22:30; Admin Dose 5 MG; Start 03/22/17 at 21:00 Baclofen (Lioresal) 10 mg BID PRN GTB MUSCLE SPASMS; Start 03/22/17 at 18:00 Chlorhexidine Gluconate (Peridex) 15 ml Q12 MM Last administered on 03/26/17 09:55; Admin Dose 15 ML; Start 03/22/17 at 21:00 Docusate Sodium (Colace Liquid Cup) 100 mg BID GTB Last administered on 09:54; Admin Dose 100 MG; Start 03/22/17 at 21:00 Hydralazine HCl (Apresoline) 25 mg Q8 PRN GTB SBP>170; Start 03/22/17 at 18:00 Lactobacillus Acidophilus/ Rhamnosus (Culturelle) 1 cap DAILY GTB Last administered on 03/26/17 09:55; Admin Dose 1 CAP; Start 03/23/17 at 09:00 Lactulose (Enulose) 20 gm BID GTB Last administered on 03/26/17 09:54; Admin Dose 20 GM; Start 03/22/17 at 21:00 Lansoprazole (Prevacid) 30 mg DAILY@06 GTB Last administered on 03/26/17 05:25 ; Admin Dose 30 MG; Start 03/23/17 at 06:00 Levetiracetam (Keppra Liquid) 2,000 mg BID GTB Last administered on 03/26/17 09:54; Admin Dose 2,000 MG; Start 03/22/17 at 21:00 Lisinopril (Zestril) 20 mg DAILY GTB Last administered on 03/26/17 09:55; Admin Dose 20 MG; Start 03/22/17 at 22:00 Magnesium Hydroxide (Milk Of Mag) 30 ml DAILY GTB Last administered on 09:54; Admin Dose 30 ML; Start 03/23/17 at 09:00 Sodium Biphosphate/ Sodium Phosphate (Fleet Enema) 133 ml DAILY PRN [place] CONSTIPATION; Start 03/22/17 at 18:00 Nitroglycerin (Nitroglycerin 2% Oint) 1 inch Q6H PRN TD CHEST PAIN Last administered on 03/22/17 22:56; Admin Dose 1 INCH; Start 03/22/17 at 18:00 Nystatin (Nystatin Susp) 5 ml BID GTB Last administered on 03/26/17 09:54; Admin Dose 5 ML; Start 03/22/17 at 22:00 Oxycodone HCl (Roxicodone) 5 mg Q4H PRN GTB PAIN; Start 03/22/17 at 18:00 Polyethylene Glycol (Miralax) 17 gm DAILY GTB Last administered on 03/26/17 09 :54; Admin Dose 17 GM; Start 03/23/17 at 09:00 Prochlorperazine (Compazine Inj) 5 mg Q6H PRN IM NAUSEA AND/OR VOMITING; Start 03/22/17 at 18:00 Simethicone (Mylicon) 80 mg Q6H PRN PEG DISTENSION/GAS/BLOATING; Start at 18:00 Spironolactone (Aldactone) 25 mg DAILY GTB Last administered on 03/26/17 09:55 ; Admin Dose 25 MG; Start 03/23/17 at 09:00 Topiramate (Topamax) 25 mg BID GTB Last administered on 03/26/17 09:58; Admin Dose 25 MG; Start 03/22/17 at 21:00 Multivitamins (Thera-Plus) 5 ml DAILY GTB Last administered on 03/26/17 09:58 ; Admin Dose 5 ML; Start 03/23/17 at 09:00 Psyllium Hydrophilic Mucilloid (Metamucil (Sugar Free)) 1 pkt BID GTB Last administered on 03/26/17 09:54; Admin Dose 1 PKT; Start 03/22/17 at 22:00 Propranolol HCl (Inderal) 60 mg Q6 GTB Last administered on 03/26/17 12:32; Admin Dose 60 MG; Start 03/22/17 at 22:00 Ibuprofen (Motrin) 400 mg ONCE PRN PO PAIN OR TEMP ABOVE 38C Last administered on 03/25/17 03:28; Admin Dose 400 MG; Start 03/25/17 at 02:00 Acetaminophen (Tylenol Liquid) 325 mg Q6 GTB ; Start 03/26/17 at 18:00 KATI DONOVAN NP March 26, 2017 15:33
[2017-03-26] MEDS: ACETAMINOPHEN 650MG/20.3ML CUP GTB SCH ×2 (17:17→23:42)
--- NOTE | 2017-03-26 18:07 | PN ---
Date/Time of Note Date/Time of Note DATE: 03/26/17 TIME: 18:04 Assessment/Plan VTE Prophylaxis VTE Prophylaxis Intervention: other Lines/Catheters IV Catheter Type (from Nrs): Peripheral IV Assessment/Plan Chief Complaint/Hosp Course 1. Systemic inflammatory response syndrome with persistent fever and tachycardia -Etiology is likely secondary to underlying TRIPE WASHER injury with dysregulation of temperature -Will start scheduled Tylenol today -Source unclear at this time, Cx's neg at this point -ID consult appreciated, antibiotics have been discontinued and plan is to monitor 2. Anoxic encephalopathy with chronic debility status post percutaneous endoscopic gastrostomy and tracheostomy as well as craniectomy -Pulmonology consultation for vent management -skull replacement when swelling resolves -PT eval 3. History of hypertension-stable -cont Rx 4. GIB-pt had coffee ground emesis-now resolved -Continue to hold Eliquis 5. Hematuria likely secondary to traumatic Talley -Change Talley to a condom catheter -Urology consultation 6. History of substance abuse in the past Prophylaxis: Eliquis when resumed Problems: Subjective 24 Hr Interval Summary Subjective hx not possible: pt non-verbal Exam/Review of Systems Vital Signs Vitals Vital Signs Date Time Temp Pulse Resp B/P Pulse Ox O2 Delivery O2 Flow Rate FiO2 03/26/17 16:12 68 03/26/17 15:54 98.9 24 123/76 99 03/26/17 13:30 5.0 28 03/26/17 13:30 Aerosol Intake and Output 03/25/17 03/25/17 03/26/17 15:00 23:00 07:00 Intake Total 250 ml 1460 ml 1360 ml Output Total 900 ml 950 ml Balance 250 ml 560 ml 410 ml Exam Constitutional: non-verbal Respiratory: clear to auscultation Cardiovascular: regular rate and rhythm Gastrointestinal: soft, No distended Musculoskeletal: No nl extremities to inspection Results Result Diagram: 03/26/17 0643 03/26/17 0643 Results 24 hrs Laboratory Tests Test 03/26/17 06:43 White Blood Count 8.5 Red Blood Count 4.09 L Hemoglobin 11.8 L Hematocrit 36.4 L Mean Corpuscular Volume 89.0 Mean Corpuscular Hemoglobin 28.9 L Mean Corpuscular Hemoglobin Concent 32.4 Red Cell Distribution Width 14.2 Platelet Count 267 Mean Platelet Volume 10.8 H Neutrophils % 70.9 Lymphocytes % 18.7 Monocytes % 7.6 Eosinophils % 2.1 Basophils % 0.2 Nucleated Red Blood Cells % 0.0 Neutrophils # 6.0 Lymphocytes # 1.6 Monocytes # 0.6 Eosinophils # 0.2 Basophils # 0.0 Nucleated Red Blood Cells # 0.0 Sodium Level 144 Potassium Level 3.4 L Chloride Level 116 H Carbon Dioxide Level 21 Anion Gap 10 Blood Urea Nitrogen 9 Creatinine 0.54 L Glucose Level 112 Calcium Level 9.1 Medications Medications Current Medications Ondansetron HCl (Zofran Inj) 4 mg Q6H PRN IV NAUSEA AND/OR VOMITING Last administered on 03/24/17 06:07; Admin Dose 4 MG; Start 03/22/17 at 18:00 Acetaminophen (Tylenol Liquid) 500 mg Q6H PRN GTB PAIN AND OR ELEVATED TEMP Last administered on 03/25/17 09:20; Admin Dose 500 MG; Start 03/22/17 at 18:00 Amlodipine Besylate (Norvasc) 5 mg DAILY GTB Last administered on 03/26/17 09: 54; Admin Dose 5 MG; Start 03/23/17 at 09:00 Apixaban (Eliquis) 5 mg BID GTB Last administered on 03/25/17 22:30; Admin Dose 5 MG; Start 03/22/17 at 21:00 Baclofen (Lioresal) 10 mg BID PRN GTB MUSCLE SPASMS; Start 03/22/17 at 18:00 Chlorhexidine Gluconate (Peridex) 15 ml Q12 MM Last administered on 03/26/17 09:55; Admin Dose 15 ML; Start 03/22/17 at 21:00 Docusate Sodium (Colace Liquid Cup) 100 mg BID GTB Last administered on 09:54; Admin Dose 100 MG; Start 03/22/17 at 21:00 Hydralazine HCl (Apresoline) 25 mg Q8 PRN GTB SBP>170; Start 03/22/17 at 18:00 Lactobacillus Acidophilus/ Rhamnosus (Culturelle) 1 cap DAILY GTB Last administered on 03/26/17 09:55; Admin Dose 1 CAP; Start 03/23/17 at 09:00 Lactulose (Enulose) 20 gm BID GTB Last administered on 03/26/17 09:54; Admin Dose 20 GM; Start 03/22/17 at 21:00 Lansoprazole (Prevacid) 30 mg DAILY@06 GTB Last administered on 03/26/17 05:25 ; Admin Dose 30 MG; Start 03/23/17 at 06:00 Levetiracetam (Keppra Liquid) 2,000 mg BID GTB Last administered on 03/26/17 09:54; Admin Dose 2,000 MG; Start 03/22/17 at 21:00 Lisinopril (Zestril) 20 mg DAILY GTB Last administered on 03/26/17 09:55; Admin Dose 20 MG; Start 03/22/17 at 22:00 Magnesium Hydroxide (Milk Of Mag) 30 ml DAILY GTB Last administered on 09:54; Admin Dose 30 ML; Start 03/23/17 at 09:00 Sodium Biphosphate/ Sodium Phosphate (Fleet Enema) [address] CONSTIPATION; Start 03/22/17 at 18:00 Nitroglycerin (Nitroglycerin 2% Oint) 1 inch Q6H PRN TD CHEST PAIN Last administered on 03/22/17 22:56; Admin Dose 1 INCH; Start 03/22/17 at 18:00 Nystatin (Nystatin Susp) 5 ml BID GTB Last administered on 03/26/17 09:54; Admin Dose 5 ML; Start 03/22/17 at 22:00 Oxycodone HCl (Roxicodone) 5 mg Q4H PRN GTB PAIN; Start 03/22/17 at 18:00 Polyethylene Glycol (Miralax) 17 gm DAILY GTB Last administered on 03/26/17 09 :54; Admin Dose 17 GM; Start 03/23/17 at 09:00 Prochlorperazine (Compazine Inj) 5 mg Q6H PRN IM NAUSEA AND/OR VOMITING; Start 03/22/17 at 18:00 Simethicone (Mylicon) 80 mg Q6H PRN PEG DISTENSION/GAS/BLOATING; Start at 18:00 Spironolactone (Aldactone) 25 mg DAILY GTB Last administered on 03/26/17 09:55 ; Admin Dose 25 MG; Start 03/23/17 at 09:00 Topiramate (Topamax) 25 mg BID GTB Last administered on 03/26/17 09:58; Admin Dose 25 MG; Start 03/22/17 at 21:00 Multivitamins (Thera-Plus) 5 ml DAILY GTB Last administered on 03/26/17 09:58 ; Admin Dose 5 ML; Start 03/23/17 at 09:00 Psyllium Hydrophilic Mucilloid (Metamucil (Sugar Free)) 1 pkt BID GTB Last administered on 03/26/17 09:54; Admin Dose 1 PKT; Start 03/22/17 at 22:00 Propranolol HCl (Inderal) 60 mg Q6 GTB Last administered on 03/26/17 17:17; Admin Dose 60 MG; Start 03/22/17 at 22:00 Ibuprofen (Motrin) 400 mg ONCE PRN PO PAIN OR TEMP ABOVE 38C Last administered on 03/25/17 03:28; Admin Dose 400 MG; Start 03/25/17 at 02:00 Acetaminophen (Tylenol Liquid) 325 mg Q6 GTB Last administered on 03/26/17 17: 17; Admin Dose 325 MG; Start 03/26/17 at 18:00 MONIQUE REYES March 26, 2017 18:07
--- NOTE | 2017-03-26 20:43 | CONS ---
DATE OF ADMISSION: 03/22/2017 DATE OF CONSULTATION: 03/26/2017 REQUESTING PHYSICIAN: Dr. Deras Dear Dr. Deras: Thank you for asking me to see this patient in urological consultation. HISTORY OF PRESENT ILLNESS: This is a 21-year-old male who has a history of anoxic brain injury and had a craniotomy at the time to prevent brain herniation during his anoxic brain injury. The patie nt was initially at [facility] where he presented with heroin overdose. The patient aspirated and had hyp oxia. It is not clear whether he had a cardiac arrest. Subsequently to that, he had anoxic injury and aspiration pneumonia. He was in respiratory failure, had a tracheostomy and PEG tube placed. T he patient also did have deep vein thrombosis. The patient then underwent a thrombectomy and insert ion of IVC filter. Once he was stable, he was transferred to [facility] and, from [place], he was sent to the skilled nursing. He hardly stayed 1 day in the skilled nursing. Then, he was noted to have fever and tachycardia and was brought to the emergency room at [facility] and was admitted. Today, patient, it appears, had a Talley catheter, and there was some bloody urine. Therefore, a urological consultation was requested. The Talley catheter that he had was rem elijah and a condom catheter was placed on the patient. PAST MEDICAL HISTORY: Hypertension in the past and also anoxic brain injury and pneumonia and drug overdose. PAST SURGICAL HISTORY: IVC filter placement, thrombectomy, craniotomy for brain herniation during h is anoxic brain injury. ALLERGIES: THE PATIENT IS ALLERGIC TO SHRIMP, PRASUGREL. SOCIAL HISTORY: History of tobacco abuse and drug abuse, in particular heroin. No report of alcoho l abuse. REVIEW OF SYSTEMS: Other than this, the review of systems is negative. MEDICATIONS: Presently his medications include: 1. Tylenol liquid. 2. Ibuprofen. 3. Norvasc. 4. Lactobacillus. 5. Milk of magnesia. 6. MiraLax. 7. Aldactone. 8. Multivitamins. 9. Prevacid. 10. Lisinopril. 11. Nystatin suspension. 12. Metamucil. 13. Inderal. 14. Eliquis. 15. Keppra. 16. Lactulose. 17. Zofran p.r.n. 18. Baclofen p.r.n. 19. Hydralazine p.r.n. 20. Nitroglycerin p.r.n. 21. Oxycodone p.r.n. 22. Compazine p.r.n. 23. Mylicon 80 mg per G-tube. PHYSICAL EXAMINATION: GENERAL: Reveals a 21-year-old male who is not responsive. He weighs 67.6 kg. He is 72 inches karime l. VITAL SIGNS: His temperature is 98.9, pulse is 98, respirations 20, blood pressure 123/76. NECK: The patient does have a tracheostomy and he is on oxygen. ABDOMEN: He does have a PEG tube in place. The abdomen otherwise is soft. The bladder is not dist ended. EXTERNAL GENITALIA: Normal. He does have a condom catheter and some blood at the urethral meatus. EXTREMITIES: No edema. LABORATORY DATA: CBC shows a white count of 8.5. On admission, his white count was 14.0. Hemoglob in is 11.8, hematocrit 36.4, platelet count is 267,000. BUN is 9, creatinine 0.54. Electrolytes: Sodium 144, potassium 3.4, chloride 116, CO2 of 21. PT 14.8, INR 1.16. Urinalysis on admission faustino wed a trace of ketones and 1+ protein. Urine culture: No growth after 48 hours. IMPRESSION: Most likely traumatic insertion of the Talley catheter and the catheter has since been r emoved. PLAN: To watch him. I applied a condom catheter and also do a bladder scan to make sure that there is no urinary retention. Should there be any retention, then I will put the Talley catheter for him . I will follow his urological problem with you. I do thank you for allowing me to help in his care. Dictated By: GERARDO SMITH MD BB/MAKAYLA Conf#: [id number] DID#: [id number] CC: MONIQUE DERAS MD;*EndCC*
[2017-03-27] VITALS (13 sets, daily range): BP systolic 107–140; BP diastolic 56–74; PULSE 68–165; RESP 16–32
[2017-03-27] MEDS: LANSOPRAZOLE 30 MG CAP GTB SCH (05:18)
[2017-03-27] MEDS: PROPRANOLOL 40 MG TAB GTB SCH ×3 (05:18→17:30)
[2017-03-27] MEDS: ACETAMINOPHEN 650MG/20.3ML CUP GTB SCH ×3 (05:18→17:31)
[2017-03-27 06:41] LABS: ADD SCAN DIFF NO
[2017-03-27 06:43] LABS: BASOPHILS % 0.5 % (0.0-2.0); EOSINOPHILS # 0.2 10^3/ul (0.0-0.5); EOSINOPHILS % 3.4 % (0.0-7.0); HEMATOCRIT 39.3 % (42.0-52.0); HEMOGLOBIN 12.9 g/dl (14.0-18.0); LYMPHOCYTES # 1.3 10^3/ul (0.8-2.9); LYMPHOCYTES % 20.3 % (15.0-51.0); MEAN CORPUSCULAR HEMOGLOBIN 29.1 pg (29.0-33.0); MEAN CORPUSCULAR HGB CONC 32.8 g/dl (32.0-37.0); MEAN CORPUSCULAR VOLUME 88.7 fl (82.0-101.0); MEAN PLATELET VOLUME 10.3 fl (7.4-10.4); MONOCYTE # 0.5 10^3/ul (0.3-0.9); MONOCYTES % 7.6 % (0.0-11.0); NEUTROPHIL # 4.2 10^3/ul (1.6-7.5); NEUTROPHILS % 67.7 % (39.0-77.0); PLATELET COUNT 286 10^3/UL (140-415); RED BLOOD COUNT 4.43 10^6/ul (4.70-6.10); RED CELL DISTRIBUTION WIDTH 14.1 % (11.5-14.5); WHITE BLOOD COUNT 6.2 10^3/ul (4.8-10.8)
[2017-03-27 07:00] LABS: CALCIUM 9.6 mg/dl (8.4-10.2); CREATININE 0.55 mg/dl (0.61-1.24); POTASSIUM 4.2 mmol/L (3.5-5.1)
[2017-03-27] MEDS: NYSTATIN SUSP 5 ML CUP GTB SCH ×2 (08:05→20:53)
[2017-03-27] MEDS: CHLORHEXIDINE GLUCONATE 15 ML UD CUP MM SCH ×2 (08:05→20:58)
[2017-03-27] MEDS: LEVETIRACETAM (100 MG/ML) 5ML CUP GTB SCH ×2 (08:06→22:06)
[2017-03-27] MEDS: TOPIRAMATE 25 MG TAB GTB SCH ×2 (08:06→20:54)
[2017-03-27] MEDS: AMLODIPINE 5 MG TAB GTB SCH (08:06)
[2017-03-27] MEDS: LISINOPRIL 20 MG TAB GTB SCH (08:06)
[2017-03-27] MEDS: POLYETHYLENE GLYCOL 17 GM PACKET GTB SCH (08:07)
[2017-03-27] MEDS: MULTIVITAMINS 5 ML CUP GTB SCH (08:07)
[2017-03-27] MEDS: MAGNESIUM HYDROXIDE 30ML CUP GTB SCH (08:07)
[2017-03-27] MEDS: PSYLLIUM (SUGAR FREE) PACKET GTB SCH ×2 (08:07→20:58)
[2017-03-27] MEDS: LACTOBACILLUS RHAMNOSUS CAP GTB SCH (08:08)
[2017-03-27] MEDS: APIXABAN 5 MG TABLET GTB SCH ×2 (08:09→20:53)
[2017-03-27] MEDS: LACTULOSE 30ML CUP GTB SCH ×2 (08:09→20:58)
[2017-03-27] MEDS: SPIRONOLACTONE 25 MG TAB GTB SCH (08:09)
[2017-03-27] MEDS: DOCUSATE SODIUM 10 MG/ML (10ML CUP) GTB SCH ×2 (08:09→20:58)
--- NOTE | 2017-03-27 10:50 | CONS ---
Date/Time of Note Date/Time of Note DATE: 03/27/17 TIME: 10:48 Assessment/Plan Assessment/Plan Additional Assessment/Plan Assessment recommendations; next 1. Patient admitted for for fever, no obvious source identified. Patient has had a clear chest x-ray and is no clinically stable. 2. 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 Maintain on T- piece. 3. Hypertension. 4. Stable seizure disorder. Continue current supportive care. Consultation Date/Type/Reason Admit Date/Time March 22, 2017 at 14:56 Initial Consult Date Type of Consultation: Pulmonary/critical care 24 HR Interval Summary Free Text/Dictation Patient condition remains stable. Remains unresponsive, however remains awake. Patient remains in persistent vegetative state. Has remained hemodynamically stable. General exam; young male, on tracheal T piece. Currently in no distress. Exam/Review of Systems Vital Signs Vitals Vital Signs Date Time Temp Pulse Resp B/P Pulse Ox O2 Delivery O2 Flow Rate FiO2 03/27/17 08:37 68 03/27/17 08:00 6.0 03/27/17 07:22 99.0 32 119/72 100 03/27/17 05:34 Aerosol 28 Intake and Output 03/26/17 03/26/17 03/27/17 14:59 22:59 06:59 Intake Total 1360 ml 1360 ml Output Total 1200 ml 500 ml Balance 160 ml 860 ml Exam HEENT exam is; supple neck, ostomy in place with clean insertion site. Patient has fair dentition. No neck masses. No thyromegaly. Pupils are midsize and reactive to light. Chest examination; clear to alteration. S1-S2 audible, no murmurs. Regular rhythm. Abdomen examination; soft, G-tube in place. Nondistended. Bowel sounds audible. Extremity exam is; no peripheral edema. Patient has contractures involving all 4 extremities. APPLICATIONS TRAINER examination; patient remains awake but unresponsive. Results Result Diagram: 03/27/17 0618 03/27/17 0618 Results 24 hrs Laboratory Tests Test 03/26/17 23:39 03/27/17 04:16 03/27/17 06:18 Bedside Glucose 108 94 White Blood Count 6.2 # Red Blood Count 4.43 L Hemoglobin 12.9 L Hematocrit 39.3 L Mean Corpuscular Volume 88.7 Mean Corpuscular Hemoglobin 29.1 Mean Corpuscular Hemoglobin Concent 32.8 Red Cell Distribution Width 14.1 Platelet Count 286 Mean Platelet Volume 10.3 Neutrophils % 67.7 Lymphocytes % 20.3 Monocytes % 7.6 Eosinophils % 3.4 Basophils % 0.5 Nucleated Red Blood Cells % 0.0 Neutrophils # 4.2 Lymphocytes # 1.3 Monocytes # 0.5 Eosinophils # 0.2 Basophils # 0.0 Nucleated Red Blood Cells # 0.0 Sodium Level 144 Potassium Level 4.2 Chloride Level 115 H Carbon Dioxide Level 22 Anion Gap 11 Blood Urea Nitrogen 11 Creatinine 0.55 L Glucose Level 109 Calcium Level 9.6 Medications Medications Current Medications Ondansetron HCl (Zofran Inj) 4 mg Q6H PRN IV NAUSEA AND/OR VOMITING Last administered on 03/24/17 06:07; Admin Dose 4 MG; Start 03/22/17 at 18:00 Acetaminophen (Tylenol Liquid) 500 mg Q6H PRN GTB PAIN AND OR ELEVATED TEMP Last administered on 03/25/17 09:20; Admin Dose 500 MG; Start 03/22/17 at 18:00 Amlodipine Besylate (Norvasc) 5 mg DAILY GTB Last administered on 03/27/17 08: 06; Admin Dose 5 MG; Start 03/23/17 at 09:00 Apixaban (Eliquis) 5 mg BID GTB Last administered on 03/25/17 22:30; Admin Dose 5 MG; Start 03/22/17 at 21:00 Baclofen (Lioresal) 10 mg BID PRN GTB MUSCLE SPASMS; Start 03/22/17 at 18:00 Chlorhexidine Gluconate (Peridex) 15 ml Q12 MM Last administered on 03/27/17 08:05; Admin Dose 15 ML; Start 03/22/17 at 21:00 Docusate Sodium (Colace Liquid Cup) 100 mg BID GTB Last administered on 22:26; Admin Dose 100 MG; Start 03/22/17 at 21:00 Hydralazine HCl (Apresoline) 25 mg Q8 PRN GTB SBP>170; Start 03/22/17 at 18:00 Lactobacillus Acidophilus/ Rhamnosus (Culturelle) 1 cap DAILY GTB Last administered on 03/27/17 08:08; Admin Dose 1 CAP; Start 03/23/17 at 09:00 Lactulose (Enulose) 20 gm BID GTB Last administered on 03/26/17 09:54; Admin Dose 20 GM; Start 03/22/17 at 21:00 Lansoprazole (Prevacid) 30 mg DAILY@06 GTB Last administered on 03/27/17 05:18 ; Admin Dose 30 MG; Start 03/23/17 at 06:00 Levetiracetam (Keppra Liquid) 2,000 mg BID GTB Last administered on 03/27/17 08:06; Admin Dose 2,000 MG; Start 03/22/17 at 21:00 Lisinopril (Zestril) 20 mg DAILY GTB Last administered on 03/27/17 08:06; Admin Dose 20 MG; Start 03/22/17 at 22:00 Magnesium Hydroxide (Milk Of Mag) 30 ml DAILY GTB Last administered on 09:54; Admin Dose 30 ML; Start 03/23/17 at 09:00 Sodium Biphosphate/ Sodium Phosphate (Fleet Enema) 133 ml DAILY PRN [place] CONSTIPATION; Start 03/22/17 at 18:00 Nitroglycerin (Nitroglycerin 2% Oint) 1 inch Q6H PRN TD CHEST PAIN Last administered on 03/22/17 22:56; Admin Dose 1 INCH; Start 03/22/17 at 18:00 Nystatin (Nystatin Susp) 5 ml BID GTB Last administered on 03/27/17 08:05; Admin Dose 5 ML; Start 03/22/17 at 22:00 Oxycodone HCl (Roxicodone) 5 mg Q4H PRN GTB PAIN; Start 03/22/17 at 18:00 Polyethylene Glycol (Miralax) 17 gm DAILY GTB Last administered on 03/26/17 09 :54; Admin Dose 17 GM; Start 03/23/17 at 09:00 Prochlorperazine (Compazine Inj) 5 mg Q6H PRN IM NAUSEA AND/OR VOMITING; Start 03/22/17 at 18:00 Simethicone (Mylicon) 80 mg Q6H PRN PEG DISTENSION/GAS/BLOATING; Start at 18:00 Spironolactone (Aldactone) 25 mg DAILY GTB Last administered on 03/27/17 08:09 ; Admin Dose 25 MG; Start 03/23/17 at 09:00 Topiramate (Topamax) 25 mg BID GTB Last administered on 03/27/17 08:06; Admin Dose 25 MG; Start 03/22/17 at 21:00 Multivitamins (Thera-Plus) 5 ml DAILY GTB Last administered on 03/27/17 08:07 ; Admin Dose 5 ML; Start 03/23/17 at 09:00 Psyllium Hydrophilic Mucilloid (Metamucil (Sugar Free)) 1 pkt BID GTB Last administered on 03/26/17 09:54; Admin Dose 1 PKT; Start 03/22/17 at 22:00 Propranolol HCl (Inderal) 60 mg Q6 GTB Last administered on 03/27/17 05:18; Admin Dose 60 MG; Start 03/22/17 at 22:00 Ibuprofen (Motrin) 400 mg ONCE PRN PO PAIN OR TEMP ABOVE 38C Last administered on 03/25/17 03:28; Admin Dose 400 MG; Start 03/25/17 at 02:00 Acetaminophen (Tylenol Liquid) 325 mg Q6 GTB Last administered on 03/27/17 05: 18; Admin Dose 325 MG; Start 03/26/17 at 18:00 MARQUITA GRACIA March 27, 2017 10:50
[2017-03-27] MEDS ORDERED: POTASSIUM CHLORIDE (SR) 20 MEQ TAB PO STA (12:19)
--- NOTE | 2017-03-27 12:21 | PN ---
Date/Time of Note Date/Time of Note DATE: 03/27/17 TIME: 11:56 Assessment/Plan VTE Prophylaxis VTE Prophylaxis Intervention: other Lines/Catheters IV C[facility]ter Type (from [facility] Peripheral IV Urinary Cath still in place: No Assessment/Plan Assessment/Plan 1. Fever, likely central, part from excessive secretions/basilar atelectasis, RT for respiratory toilet 2. Anoxic encephalopathy with chronic debility status post percutaneous endoscopic gastrostomy and tracheostomy as well as craniectomy, supportive care 3. Hypertension-stable 4. GIB-pt had coffee ground emesis-now resolved 5. Hematuria likely secondary to traumatic Talley, follow up with Urology consultation 6. History of substance abuse in the past 7. Prophylaxis: Subjective 24 Hr Interval Summary Free Text/Dictation nonverbal, some respiratory distress. I talked to the mother today Exam/Review of Systems Vital Signs Vitals Vital Signs Date Time Temp Pulse Resp B/P Pulse Ox O2 Delivery O2 Flow Rate FiO2 03/27/17 08:37 68 03/27/17 08:00 6.0 03/27/17 07:22 99.0 32 119/72 100 03/27/17 05:34 Aerosol 28 Intake and Output 03/26/17 03/26/17 03/27/17 15:00 23:00 07:00 Intake Total 1360 ml 1360 ml Output Total 1200 ml 500 ml Balance 160 ml 860 ml Exam Constitutional: alert, non-verbal Head: atraumatic Eyes: EOMI, PERRL, nl conjunctiva, nl lids ENMT: nl external ears & nose, nl lips & teeth, nl nasal mucosa & septum Neck: supple Respiratory: clear to auscultation, congested cough Cardiovascular: nl pulses, regular rate and rhythm, No S3, No S4, No bruits, No diastolic murmur, No edema, No gallop, No irregular rhythm, No jugular venous distention (JVD), No murmurs/extra sounds, No other, No rub, No systolic murmur Gastrointestinal: nl liver, spleen, non-tender, soft, No ascites, No bowel sounds, No distended, No firm, No hepatomegaly, No mass , No other, No rebound or guarding, No splenomegaly, No surgical scars, No tender Musculoskeletal: nl extremities to inspection Extremities: normal pulses Neurological: other (nonverbal) Results Result Diagram: 03/27/1761703/27/1718 Results 24 hrs Laboratory Tests Test 03/26/17 23:39 03/27/17 04:16 03/27/17 06:18 Bedside Glucose 108 94 White Blood Count 6.2 # Red Blood Count 4.43 L Hemoglobin 12.9 L Hematocrit 39.3 L Mean Corpuscular Volume 88.7 Mean Corpuscular Hemoglobin 29.1 Mean Corpuscular Hemoglobin Concent 32.8 Red Cell Distribution Width 14.1 Platelet Count 286 Mean Platelet Volume 10.3 Neutrophils % 67.7 Lymphocytes % 20.3 Monocytes % 7.6 Eosinophils % 3.4 Basophils % 0.5 Nucleated Red Blood Cells % 0.0 Neutrophils # 4.2 Lymphocytes # 1.3 Monocytes # 0.5 Eosinophils # 0.2 Basophils # 0.0 Nucleated Red Blood Cells # 0.0 Sodium Level 144 Potassium Level 4.2 Chloride Level 115 H Carbon Dioxide Level 22 Anion Gap 11 Blood Urea Nitrogen 11 Creatinine 0.55 L Glucose Level 109 Calcium Level 9.6 Medications Medications Current Medications Ondansetron HCl (Zofran Inj) 4 mg Q6H PRN IV NAUSEA AND/OR VOMITING Last administered on 03/24/17 06:07; Admin Dose 4 MG; Start 03/22/17 at 18:00 Acetaminophen (Tylenol Liquid) 500 mg Q6H PRN GTB PAIN AND OR ELEVATED TEMP Last administered on 03/25/17 09:20; Admin Dose 500 MG; Start 03/22/17 at 18:00 Amlodipine Besylate (Norvasc) 5 mg DAILY GTB Last administered on 03/27/17 08: 06; Admin Dose 5 MG; Start 03/23/17 at 09:00 Apixaban (Eliquis) 5 mg BID GTB Last administered on 03/25/17 22:30; Admin Dose 5 MG; Start 03/22/17 at 21:00 Baclofen (Lioresal) 10 mg BID PRN GTB MUSCLE SPASMS; Start 03/22/17 at 18:00 Chlorhexidine Gluconate (Peridex) 15 ml Q12 MM Last administered on 03/27/17 08:05; Admin Dose 15 ML; Start 03/22/17 at 21:00 Docusate Sodium (Colace Liquid Cup) 100 mg BID GTB Last administered on 22:26; Admin Dose 100 MG; Start 03/22/17 at 21:00 Hydralazine HCl (Apresoline) 25 mg Q8 PRN GTB SBP>170; Start 03/22/17 at 18:00 Lactobacillus Acidophilus/ Rhamnosus (Culturelle) 1 cap DAILY GTB Last administered on 03/27/17 08:08; Admin Dose 1 CAP; Start 03/23/17 at 09:00 Lactulose (Enulose) 20 gm BID GTB Last administered on 03/26/17 09:54; Admin Dose 20 GM; Start 03/22/17 at 21:00 Lansoprazole (Prevacid) 30 mg DAILY@06 GTB Last administered on 03/27/17 05:18 ; Admin Dose 30 MG; Start 03/23/17 at 06:00 Levetiracetam (Keppra Liquid) 2,000 mg BID GTB Last administered on 03/27/17 08:06; Admin Dose 2,000 MG; Start 03/22/17 at 21:00 Lisinopril (Zestril) 20 mg DAILY GTB Last administered on 03/27/17 08:06; Admin Dose 20 MG; Start 03/22/17 at 22:00 Magnesium Hydroxide (Milk Of Mag) 30 ml DAILY GTB Last administered on 09:54; Admin Dose 30 ML; Start 03/23/17 at 09:00 Sodium Biphosphate/ Sodium Phosphate (Fleet Enema) 133 ml DAILY PRN [place] CONSTIPATION; Start 03/22/17 at 18:00 Nitroglycerin (Nitroglycerin 2% Oint) 1 inch Q6H PRN TD CHEST PAIN Last administered on 03/22/17 22:56; Admin Dose 1 INCH; Start 03/22/17 at 18:00 Nystatin (Nystatin Susp) 5 ml BID GTB Last administered on 03/27/17 08:05; Admin Dose 5 ML; Start 03/22/17 at 22:00 Oxycodone HCl (Roxicodone) 5 mg Q4H PRN GTB PAIN; Start 03/22/17 at 18:00 Polyethylene Glycol (Miralax) 17 gm DAILY GTB Last administered on 03/26/17 09 :54; Admin Dose 17 GM; Start 03/23/17 at 09:00 Prochlorperazine (Compazine Inj) 5 mg Q6H PRN IM NAUSEA AND/OR VOMITING; Start 03/22/17 at 18:00 Simethicone (Mylicon) 80 mg Q6H PRN PEG DISTENSION/GAS/BLOATING; Start at 18:00 Spironolactone (Aldactone) 25 mg DAILY GTB Last administered on 03/27/17 08:09 ; Admin Dose 25 MG; Start 03/23/17 at 09:00 Topiramate (Topamax) 25 mg BID GTB Last administered on 03/27/17 08:06; Admin Dose 25 MG; Start 03/22/17 at 21:00 Multivitamins (Thera-Plus) 5 ml DAILY GTB Last administered on 03/27/17 08:07 ; Admin Dose 5 ML; Start 03/23/17 at 09:00 Psyllium Hydrophilic Mucilloid (Metamucil (Sugar Free)) 1 pkt BID GTB Last administered on 03/26/17 09:54; Admin Dose 1 PKT; Start 03/22/17 at 22:00 Propranolol HCl (Inderal) 60 mg Q6 GTB Last administered on 03/27/17 05:18; Admin Dose 60 MG; Start 03/22/17 at 22:00 Ibuprofen (Motrin) 400 mg ONCE PRN PO PAIN OR TEMP ABOVE 38C Last administered on 03/25/17 03:28; Admin Dose 400 MG; Start 03/25/17 at 02:00 Acetaminophen (Tylenol Liquid) 325 mg Q6 GTB Last administered on 03/27/17 05: 18; Admin Dose 325 MG; Start 03/26/17 at 18:00 JAMAR MOSCOSO MD March 27, 2017 12:21
--- NOTE | 2017-03-27 13:45 | CONS ---
Date/Time of Note Date/Time of Note DATE: 03/27/17 TIME: 13:44 Assessment/Plan Assessment/Plan Chief Complaint/Hosp Course SUBJECTIVE: No acute events overnight, on/off fevers INDWELLINGS: Trach, PEG, Talley. PHYSICAL EXAMINATION: GENERAL: This is a chronically ill-appearing, young man, who is lying comfortably in bed. HEENT: He has a craniectomy noted. Buccal mucosa dry. NECK: Supple. Tracheostomy present. CHEST: Chest rise is symmetrical. Breath sounds diminished to the bases. HEART: S1, S2. ABDOMEN: Soft, bowel tones present. EXTREMITIES: Without cyanosis. ASSESSMENT: 1. Persistent fevers, possibly central. 2. Questionable esophagitis. 3. Persistent vegetative state, status post intracranial hemorrhage. 4. Fecal impaction. 5. Chronic respiratory failure and dysphagia. 6. History of substance abuse in the past. PLAN: The patient remains clinically unchanged. All cx's negative, CXR negative , pending procalcitonin level==> ordered 03/24. Consider wbc labeled nuclear scan , observe off abx DW staff Problems: Consultation Date/Type/Reason Admit Date/Time March 22, 2017 at 14:56 Type of Consultation: ID Exam/Review of Systems Vital Signs Vitals Vital Signs Date Time Temp Pulse Resp B/P Pulse Ox O2 Delivery O2 Flow Rate FiO2 03/27/17 12:39 94 16 99 Aerosol 5.0 28 T Tube 03/27/17 12:02 99.4 121/56 Intake and Output 03/26/17 03/26/17 03/27/17 15:00 23:00 07:00 Intake Total 1360 ml 1360 ml Output Total 1200 ml 500 ml Balance 160 ml 860 ml Results Result Diagram: 03/27/17 0618 03/27/17 0618 Results 24 hrs Laboratory Tests Test 03/26/17 23:39 03/27/17 04:16 03/27/17 06:18 Bedside Glucose 108 94 White Blood Count 6.2 # Red Blood Count 4.43 L Hemoglobin 12.9 L Hematocrit 39.3 L Mean Corpuscular Volume 88.7 Mean Corpuscular Hemoglobin 29.1 Mean Corpuscular Hemoglobin Concent 32.8 Red Cell Distribution Width 14.1 Platelet Count 286 Mean Platelet Volume 10.3 Neutrophils % 67.7 Lymphocytes % 20.3 Monocytes % 7.6 Eosinophils % 3.4 Basophils % 0.5 Nucleated Red Blood Cells % 0.0 Neutrophils # 4.2 Lymphocytes # 1.3 Monocytes # 0.5 Eosinophils # 0.2 Basophils # 0.0 Nucleated Red Blood Cells # 0.0 Sodium Level 144 Potassium Level 4.2 Chloride Level 115 H Carbon Dioxide Level 22 Anion Gap 11 Blood Urea Nitrogen 11 Creatinine 0.55 L Glucose Level 109 Calcium Level 9.6 Medications Medications Current Medications Ondansetron HCl (Zofran Inj) 4 mg Q6H PRN IV NAUSEA AND/OR VOMITING Last administered on 03/24/17 06:07; Admin Dose 4 MG; Start 03/22/17 at 18:00 Acetaminophen (Tylenol Liquid) 500 mg Q6H PRN GTB PAIN AND OR ELEVATED TEMP Last administered on 03/25/17 09:20; Admin Dose 500 MG; Start 03/22/17 at 18:00 Amlodipine Besylate (Norvasc) 5 mg DAILY GTB Last administered on 03/27/17 08: 06; Admin Dose 5 MG; Start 03/23/17 at 09:00 Apixaban (Eliquis) 5 mg BID GTB Last administered on 03/25/17 22:30; Admin Dose 5 MG; Start 03/22/17 at 21:00 Baclofen (Lioresal) 10 mg BID PRN GTB MUSCLE SPASMS; Start 03/22/17 at 18:00 Chlorhexidine Gluconate (Peridex) 15 ml Q12 MM Last administered on 03/27/17 08:05; Admin Dose 15 ML; Start 03/22/17 at 21:00 Docusate Sodium (Colace Liquid Cup) 100 mg BID GTB Last administered on 22:26; Admin Dose 100 MG; Start 03/22/17 at 21:00 Hydralazine HCl (Apresoline) 25 mg Q8 PRN GTB SBP>170; Start 03/22/17 at 18:00 Lactobacillus Acidophilus/ Rhamnosus (Culturelle) 1 cap DAILY GTB Last administered on 03/27/17 08:08; Admin Dose 1 CAP; Start 03/23/17 at 09:00 Lactulose (Enulose) 20 gm BID GTB Last administered on 03/26/17 09:54; Admin Dose 20 GM; Start 03/22/17 at 21:00 Lansoprazole (Prevacid) 30 mg DAILY@06 GTB Last administered on 03/27/17 05:18 ; Admin Dose 30 MG; Start 03/23/17 at 06:00 Levetiracetam (Keppra Liquid) 2,000 mg BID GTB Last administered on 03/27/17 08:06; Admin Dose 2,000 MG; Start 03/22/17 at 21:00 Lisinopril (Zestril) 20 mg DAILY GTB Last administered on 03/27/17 08:06; Admin Dose 20 MG; Start 03/22/17 at 22:00 Magnesium Hydroxide (Milk Of Mag) 30 ml DAILY GTB Last administered on 09:54; Admin Dose 30 ML; Start 03/23/17 at 09:00 Sodium Biphosphate/ Sodium Phosphate (Fleet Enema) 133 ml DAILY PRN [place] CONSTIPATION; Start 03/22/17 at 18:00 Nitroglycerin (Nitroglycerin 2% Oint) 1 inch Q6H PRN TD CHEST PAIN Last administered on 03/22/17 22:56; Admin Dose 1 INCH; Start 03/22/17 at 18:00 Nystatin (Nystatin Susp) 5 ml BID GTB Last administered on 03/27/17 08:05; Admin Dose 5 ML; Start 03/22/17 at 22:00 Oxycodone HCl (Roxicodone) 5 mg Q4H PRN GTB PAIN; Start 03/22/17 at 18:00 Polyethylene Glycol (Miralax) 17 gm DAILY GTB Last administered on 03/26/17 09 :54; Admin Dose 17 GM; Start 03/23/17 at 09:00 Prochlorperazine (Compazine Inj) 5 mg Q6H PRN IM NAUSEA AND/OR VOMITING; Start 03/22/17 at 18:00 Simethicone (Mylicon) 80 mg Q6H PRN PEG DISTENSION/GAS/BLOATING; Start at 18:00 Spironolactone (Aldactone) 25 mg DAILY GTB Last administered on 03/27/17 08:09 ; Admin Dose 25 MG; Start 03/23/17 at 09:00 Topiramate (Topamax) 25 mg BID GTB Last administered on 03/27/17 08:06; Admin Dose 25 MG; Start 03/22/17 at 21:00 Multivitamins (Thera-Plus) 5 ml DAILY GTB Last administered on 03/27/17 08:07 ; Admin Dose 5 ML; Start 03/23/17 at 09:00 Psyllium Hydrophilic Mucilloid (Metamucil (Sugar Free)) 1 pkt BID GTB Last administered on 03/26/17 09:54; Admin Dose 1 PKT; Start 03/22/17 at 22:00 Propranolol HCl (Inderal) 60 mg Q6 GTB Last administered on 03/27/17 05:18; Admin Dose 60 MG; Start 03/22/17 at 22:00 Ibuprofen (Motrin) 400 mg ONCE PRN PO PAIN OR TEMP ABOVE 38C Last administered on 03/25/17 03:28; Admin Dose 400 MG; Start 03/25/17 at 02:00 Acetaminophen (Tylenol Liquid) 325 mg Q6 GTB Last administered on 03/27/17 05: 18; Admin Dose 325 MG; Start 03/26/17 at 18:00 KATI DONOVAN NP March 27, 2017 13:45
[2017-03-28] VITALS (14 sets, daily range): BP systolic 112–142; BP diastolic 58–78; PULSE 92–161; RESP 20–29
[2017-03-28] MEDS: ACETAMINOPHEN 650MG/20.3ML CUP GTB SCH ×5 (00:11→23:53)
[2017-03-28] MEDS: LANSOPRAZOLE 30 MG CAP GTB SCH (06:00)
[2017-03-28] MEDS: PROPRANOLOL 40 MG TAB GTB SCH ×5 (06:00→23:54)
[2017-03-28] MEDS: AMLODIPINE 5 MG TAB GTB SCH (07:39)
[2017-03-28 07:56] LABS: ADD SCAN DIFF NO
[2017-03-28 08:03] LABS: BASOPHILS % 0.2 % (0.0-2.0); EOSINOPHILS # 0.2 10^3/ul (0.0-0.5); EOSINOPHILS % 1.6 % (0.0-7.0); HEMATOCRIT 40.2 % (42.0-52.0); LYMPHOCYTES # 1.4 10^3/ul (0.8-2.9); LYMPHOCYTES % 11.4 % (15.0-51.0); MEAN CORPUSCULAR HEMOGLOBIN 28.9 pg (29.0-33.0); MEAN CORPUSCULAR HGB CONC 32.3 g/dl (32.0-37.0); MEAN CORPUSCULAR VOLUME 89.3 fl (82.0-101.0); MEAN PLATELET VOLUME 11.2 fl (7.4-10.4); MONOCYTE # 0.7 10^3/ul (0.3-0.9); NEUTROPHIL # 9.8 10^3/ul (1.6-7.5); NEUTROPHILS % 80.3 % (39.0-77.0); PLATELET COUNT 309 10^3/UL (140-415); RED CELL DISTRIBUTION WIDTH 14.9 % (11.5-14.5); WHITE BLOOD COUNT 12.2 10^3/ul (4.8-10.8)
[2017-03-28] MEDS: CHLORHEXIDINE GLUCONATE 15 ML UD CUP MM SCH ×2 (08:10→21:03)
[2017-03-28] MEDS: DOCUSATE SODIUM 10 MG/ML (10ML CUP) GTB SCH ×2 (08:11→20:52)
[2017-03-28] MEDS: POLYETHYLENE GLYCOL 17 GM PACKET GTB SCH (08:11)
[2017-03-28] MEDS: MAGNESIUM HYDROXIDE 30ML CUP GTB SCH (08:11)
[2017-03-28] MEDS: LACTULOSE 30ML CUP GTB SCH ×2 (08:11→20:53)
[2017-03-28] MEDS: PSYLLIUM (SUGAR FREE) PACKET GTB SCH ×2 (08:11→20:53)
[2017-03-28] MEDS: NYSTATIN SUSP 5 ML CUP GTB SCH ×2 (08:22→21:03)
[2017-03-28] MEDS: APIXABAN 5 MG TABLET GTB SCH ×2 (08:23→21:03)
[2017-03-28] MEDS: SPIRONOLACTONE 25 MG TAB GTB SCH (08:23)
[2017-03-28] MEDS: LEVETIRACETAM (100 MG/ML) 5ML CUP GTB SCH ×2 (08:23→22:41)
[2017-03-28] MEDS: LISINOPRIL 20 MG TAB GTB SCH (08:23)
[2017-03-28] MEDS: MULTIVITAMINS 5 ML CUP GTB SCH (08:23)
[2017-03-28 10:00] LABS: CALCIUM 9.4 mg/dl (8.4-10.2); CREATININE 0.66 mg/dl (0.61-1.24)
[2017-03-28] MEDS: TOPIRAMATE 25 MG TAB GTB SCH ×2 (11:16→21:04)
[2017-03-28] MEDS: LACTOBACILLUS RHAMNOSUS CAP GTB SCH (11:16)
--- NOTE | 2017-03-28 11:16 | CONS ---
Date/Time of Note Date/Time of Note DATE: 03/28/17 TIME: 11:13 Assessment/Plan Assessment/Plan Additional Assessment/Plan Assessment recommendations; 1. Patient admitted for low-grade fever is not off antibiotics no source identified. Patient now hemodynamically stable and afebrile. 2. Anoxic brain injury, patient remains in a persistent vegetative state. Continue current supportive care. Consider discharge. Consultation Date/Type/Reason Admit Date/Time March 22, 2017 at 14:56 Type of Consultation: Pulmonary 24 HR Interval Summary Free Text/Dictation Patient condition is stable. Has remained hemodynamically stable. Has been afebrile. Due to persistent vegetative state patient remains unresponsive. Has been maintained on T-piece. General exam; young male, currently in no distress. Awake. Unresponsive Exam/Review of Systems Vital Signs Vitals Vital Signs Date Time Temp Pulse Resp B/P Pulse Ox O2 Delivery O2 Flow Rate FiO2 03/28/17 10:04 150 03/28/17 08:00 6.0 03/28/17 07:28 99.5 25 118/71 98 03/28/17 04:45 Aerosol 28 T Tube Intake and Output 03/27/17 03/27/17 03/28/17 15:00 23:00 07:00 Intake Total 1360 ml 1260 ml Output Total 800 ml Balance 560 ml 1260 ml Exam HEENT exam; supple neck, no JVD. No lymphadenopathy. Midline trachea. No thyromegaly. Dentition is fair. Pupils are midsize and reactive to light. Tracheostomy in place with clean insertion site. Attached to T piece. Chest examination; clear to auscultation. S1-S2 audible, no murmurs. Regular rhythm. Abdomen examination; soft, nondistended. No organomegaly. G-tube in place. Extremity examination; no peripheral edema. Skin examination; no ulcers. ELECTROTYPE CASTER examination; patient is in a persistent vegetative state. Results Result Diagram: 03/28/17 0706 03/28/17 07 Results 24 hrs Laboratory Tests Test 03/28/17 07:06 White Blood Count 12.2 #H Red Blood Count 4.50 L Hemoglobin 13.0 L Hematocrit 40.2 L Mean Corpuscular Volume 89.3 Mean Corpuscular Hemoglobin 28.9 L Mean Corpuscular Hemoglobin Concent 32.3 Red Cell Distribution Width 14.9 H Platelet Count 309 Mean Platelet Volume 11.2 H Neutrophils % 80.3 H Lymphocytes % 11.4 L Monocytes % 6.0 Eosinophils % 1.6 Basophils % 0.2 Nucleated Red Blood Cells % 0.0 Neutrophils # 9.8 H Lymphocytes # 1.4 Monocytes # 0.7 Eosinophils # 0.2 Basophils # 0.0 Nucleated Red Blood Cells # 0.0 Sodium Level 144 Potassium Level 4.0 Chloride Level 114 H Carbon Dioxide Level 18 L Anion Gap 16 Blood Urea Nitrogen 18 Creatinine 0.66 Glucose Level 98 Calcium Level 9.4 Medications Medications Current Medications Ondansetron HCl (Zofran Inj) 4 mg Q6H PRN IV NAUSEA AND/OR VOMITING Last administered on 03/24/17 06:07; Admin Dose 4 MG; Start 03/22/17 at 18:00 Acetaminophen (Tylenol Liquid) 500 mg Q6H PRN GTB PAIN AND OR ELEVATED TEMP Last administered on 03/25/17 09:20; Admin Dose 500 MG; Start 03/22/17 at 18:00 Amlodipine Besylate (Norvasc) 5 mg DAILY GTB Last administered on 03/27/17 08: 06; Admin Dose 5 MG; Start 03/23/17 at 09:00 Apixaban (Eliquis) 5 mg BID GTB Last administered on 03/28/17 08:23; Admin Dose 5 MG; Start 03/22/17 at 21:00 Baclofen (Lioresal) 10 mg BID PRN GTB MUSCLE SPASMS; Start 03/22/17 at 18:00 Chlorhexidine Gluconate (Peridex) 15 ml Q12 MM Last administered on 03/27/17 20:58; Admin Dose 15 ML; Start 03/22/17 at 21:00 Docusate Sodium (Colace Liquid Cup) 100 mg BID GTB Last administered on 22:26; Admin Dose 100 MG; Start 03/22/17 at 21:00 Hydralazine HCl (Apresoline) 25 mg Q8 PRN GTB SBP>170; Start 03/22/17 at 18:00 Lactobacillus Acidophilus/ Rhamnosus (Culturelle) 1 cap DAILY GTB Last administered on 03/27/17 08:08; Admin Dose 1 CAP; Start 03/23/17 at 09:00 Lactulose (Enulose) 20 gm BID GTB Last administered on 03/26/17 09:54; Admin Dose 20 GM; Start 03/22/17 at 21:00 Lansoprazole (Prevacid) 30 mg DAILY@06 GTB Last administered on 03/28/17 06:00 ; Admin Dose 30 MG; Start 03/23/17 at 06:00 Levetiracetam (Keppra Liquid) 2,000 mg BID GTB Last administered on 03/28/17 08:23; Admin Dose 2,000 MG; Start 03/22/17 at 21:00 Lisinopril (Zestril) 20 mg DAILY GTB Last administered on 03/28/17 08:23; Admin Dose 20 MG; Start 03/22/17 at 22:00 Magnesium Hydroxide (Milk Of Mag) 30 ml DAILY GTB Last administered on 09:54; Admin Dose 30 ML; Start 03/23/17 at 09:00 Sodium Biphosphate/ Sodium Phosphate (Fleet Enema) 133 ml DAILY PRN [place] CONSTIPATION; Start 03/22/17 at 18:00 Nitroglycerin (Nitroglycerin 2% Oint) 1 inch Q6H PRN TD CHEST PAIN Last administered on 03/22/17 22:56; Admin Dose 1 INCH; Start 03/22/17 at 18:00 Nystatin (Nystatin Susp) 5 ml BID GTB Last administered on 03/28/17 08:22; Admin Dose 5 ML; Start 03/22/17 at 22:00 Oxycodone HCl (Roxicodone) 5 mg Q4H PRN GTB PAIN; Start 03/22/17 at 18:00 Polyethylene Glycol (Miralax) 17 gm DAILY GTB Last administered on 03/26/17 09 :54; Admin Dose 17 GM; Start 03/23/17 at 09:00 Prochlorperazine (Compazine Inj) 5 mg Q6H PRN IM NAUSEA AND/OR VOMITING; Start 03/22/17 at 18:00 Simethicone (Mylicon) 80 mg Q6H PRN PEG DISTENSION/GAS/BLOATING; Start at 18:00 Spironolactone (Aldactone) 25 mg DAILY GTB Last administered on 03/28/17 08:23 ; Admin Dose 25 MG; Start 03/23/17 at 09:00 Topiramate (Topamax) 25 mg BID GTB Last administered on 03/27/17 20:54; Admin Dose 25 MG; Start 03/22/17 at 21:00 Multivitamins (Thera-Plus) 5 ml DAILY GTB Last administered on 03/28/17 08:23 ; Admin Dose 5 ML; Start 03/23/17 at 09:00 Psyllium Hydrophilic Mucilloid (Metamucil (Sugar Free)) 1 pkt BID GTB Last administered on 03/26/17 09:54; Admin Dose 1 PKT; Start 03/22/17 at 22:00 Propranolol HCl (Inderal) 60 mg Q6 GTB Last administered on 03/27/17 17:30; Admin Dose 60 MG; Start 03/22/17 at 22:00 Ibuprofen (Motrin) 400 mg ONCE PRN PO PAIN OR TEMP ABOVE 38C Last administered on 03/25/17 03:28; Admin Dose 400 MG; Start 03/25/17 at 02:00 Acetaminophen (Tylenol Liquid) 325 mg Q6 GTB Last administered on 03/28/17 06: 00; Admin Dose 325 MG; Start 03/26/17 at 18:00 MARQUITA GRACIA March 28, 2017 11:16
--- NOTE | 2017-03-28 11:21 | PN ---
DATE: 03/28/2017 SUBJECTIVE: History of hematuria, most likely traumatic. The patient himself cephalopathic and does not express any complaints. OBJECTIVE VITAL SIGNS: His temperature is 99.5. The pulse is 124, respirations 25, blood pressure 118/71. ABDOMEN: Soft. Bladder is not distended, neither is it palpable. The patient does have the condom catheter on and it seems the tubing is in place. They probably just emptied it and his urine output yesterday was 1700 m per 24 hours, during the last shift 800 mls. LABORATORY DATA: His urine culture no growth after 48 hours. CBC shows a white count of 6.2, hemogl obin 12.9, hematocrit 39.3. BUN is 11, creatinine 0.55. Electrolytes are normal. PLAN: To continue present treatment and hematuria subsided as he most likely was initially traumati c. Dictated By: GERARDO CHE/MAKAYLA Conf#: [id number] DID#: [id number]
--- NOTE | 2017-03-28 13:15 | PN ---
DATE: 03/28/2017 SUBJECTIVE: No acute changes. The patient is tachycardic. Afebrile, temperature max 100.3. LABORATORY DATA: WBC today 12.3, H and H 13 and 40.2, platelets 309, neutrophils 80.3. Sodium 140, BUN 18, creatinine 0.66. MICROBIOLOGY: Blood cultures, urine culture and stool came back negative. INDWELLINGS: Trach, PEG. PHYSICAL EXAMINATION: GENERAL: This is a well-developed, chronically ill-appearing young man who is in no distress. HEENT: Head with the presence of craniectomy and right-sided bones have been removed. Sclerae anic teric. Buccal mucosa dry. NECK: Supple. Tracheostomy present. CHEST: Rise symmetrical. Breath sounds diminished. HEART: S1, S2. ABDOMEN: Soft, bowel sounds present. EXTREMITIES: Wasted, contractured. No cyanosis. ASSESSMENT: 1. Persistent fevers, likely central, so far cultures have been negative. 2. Tachycardia. 3. History of intracranial hemorrhage. 4. Chronic respiratory failure. 5. Vegetative state. PLAN: The patient remains clinically unchanged. Procalcitonin level was ordered on 03/24/2017, res ults are still pending. He is off antibiotics. Pulmonary and urology on case. We will continue ob serving him. Mother to decide about WBC labeled nuclear scan. Dictated By: KATI DONOVAN [employer] for KRISHNA TEMPLE/MAKAYLA Conf#: [id number] DID#: [id number]
--- NOTE | 2017-03-28 14:01 | PN ---
Date/Time of Note Date/Time of Note DATE: 03/28/17 TIME: 13:55 Assessment/Plan VTE Prophylaxis VTE Prophylaxis Intervention: other Lines/Catheters IV Catheter Type (from [facility]): Mid Line Urinary Cath still in place: No Assessment/Plan Assessment/Plan 1. Fever, probably pulmonary from aspiration or atelectasis, RT for respiratory toilet 2. Anoxic encephalopathy with chronic debility status post percutaneous endoscopic gastrostomy and tracheostomy as well as craniectomy, supportive care 3. Hypertension-stable 4. GIB-pt had coffee ground emesis-now resolved 5. Hematuria likely secondary to traumatic [place], follow up with Urology consultation 6. History of substance abuse in the past 7. Prophylaxis: eliquis Subjective 24 Hr Interval Summary Free Text/Dictation no distress today. nonverbal Exam/Review of Systems Vital Signs Vitals Vital Signs Date Time Temp Pulse Resp B/P Pulse Ox O2 Delivery O2 Flow Rate FiO2 03/28/17 12:25 98 5.0 28 03/28/17 12:25 101 20 Aerosol 03/28/17 11:48 98.4 142/69 Intake and Output 03/27/17 03/27/17 03/28/17 15:00 23:00 07:00 Intake Total 1360 ml 1260 ml Output Total 800 ml Balance 560 ml 1260 ml Exam Constitutional: alert, non-verbal Eyes: EOMI, nl conjunctiva, nl lids ENMT: nl external ears & nose, nl lips & teeth, nl nasal mucosa & septum Neck: non-tender, supple Respiratory: clear to auscultation, normal air movement, No congested cough, No crackles/rales, No diminished breath sounds, No intercostal retraction, No labored breathing, No other, No respirations, No tactile fremitus, No wheezing Cardiovascular: nl pulses, regular rate and rhythm, No S3, No S4, No bruits, No diastolic murmur, No edema, No gallop, No irregular rhythm, No jugular venous distention (JVD), No murmurs/extra sounds, No other, No rub, No systolic murmur Gastrointestinal: nl liver, spleen, soft, No ascites, No bowel sounds, No distended, No firm, No hepatomegaly, No mass , No other, No rebound or guarding, No splenomegaly, No surgical scars Extremities: normal pulses, other (contraction), No clubbing, No cyanosis, No edema, No palpable cord, No pitting pedal edema , No tenderness Neurological: other (nonverbal) Results Result Diagram: 03/28/1770503/28/17705 Results 24 hrs Laboratory Tests Test 03/28/17 07:06 White Blood Count 12.2 #H Red Blood Count 4.50 L Hemoglobin 13.0 L Hematocrit 40.2 L Mean Corpuscular Volume 89.3 Mean Corpuscular Hemoglobin 28.9 L Mean Corpuscular Hemoglobin Concent 32.3 Red Cell Distribution Width 14.9 H Platelet Count 309 Mean Platelet Volume 11.2 H Neutrophils % 80.3 H Lymphocytes % 11.4 L Monocytes % 6.0 Eosinophils % 1.6 Basophils % 0.2 Nucleated Red Blood Cells % 0.0 Neutrophils # 9.8 H Lymphocytes # 1.4 Monocytes # 0.7 Eosinophils # 0.2 Basophils # 0.0 Nucleated Red Blood Cells # 0.0 Sodium Level 144 Potassium Level 4.0 Chloride Level 114 H Carbon Dioxide Level 18 L Anion Gap 16 Blood Urea Nitrogen 18 Creatinine 0.66 Glucose Level 98 Calcium Level 9.4 Medications Medications Current Medications Ondansetron HCl (Zofran Inj) 4 mg Q6H PRN IV NAUSEA AND/OR VOMITING Last administered on 03/24/17 06:07; Admin Dose 4 MG; Start 03/22/17 at 18:00 Acetaminophen (Tylenol Liquid) 500 mg Q6H PRN GTB PAIN AND OR ELEVATED TEMP Last administered on 03/25/17 09:20; Admin Dose 500 MG; Start 03/22/17 at 18:00 Amlodipine Besylate (Norvasc) 5 mg DAILY GTB Last administered on 03/27/17 08: 06; Admin Dose 5 MG; Start 03/23/17 at 09:00 Apixaban (Eliquis) 5 mg BID GTB Last administered on 03/28/17 08:23; Admin Dose 5 MG; Start 03/22/17 at 21:00 Baclofen (Lioresal) 10 mg BID PRN GTB MUSCLE SPASMS; Start 03/22/17 at 18:00 Chlorhexidine Gluconate (Peridex) 15 ml Q12 MM Last administered on 03/27/17 20:58; Admin Dose 15 ML; Start 03/22/17 at 21:00 Docusate Sodium (Colace Liquid Cup) 100 mg BID GTB Last administered on 22:26; Admin Dose 100 MG; Start 03/22/17 at 21:00 Hydralazine HCl (Apresoline) 25 mg Q8 PRN GTB SBP>170; Start 03/22/17 at 18:00 Lactobacillus Acidophilus/ Rhamnosus (Culturelle) 1 cap DAILY GTB Last administered on 03/28/17 11:16; Admin Dose 1 CAP; Start 03/23/17 at 09:00 Lactulose (Enulose) 20 gm BID GTB Last administered on 03/26/17 09:54; Admin Dose 20 GM; Start 03/22/17 at 21:00 Lansoprazole (Prevacid) 30 mg DAILY@06 GTB Last administered on 03/28/17 06:00 ; Admin Dose 30 MG; Start 03/23/17 at 06:00 Levetiracetam (Keppra Liquid) 2,000 mg BID GTB Last administered on 03/28/17 08:23; Admin Dose 2,000 MG; Start 03/22/17 at 21:00 Lisinopril (Zestril) 20 mg DAILY GTB Last administered on 03/28/17 08:23; Admin Dose 20 MG; Start 03/22/17 at 22:00 Magnesium Hydroxide (Milk Of Mag) 30 ml DAILY GTB Last administered on 09:54; Admin Dose 30 ML; Start 03/23/17 at 09:00 Sodium Biphosphate/ Sodium Phosphate (Fleet Enema) 133 ml DAILY PRN [place] CONSTIPATION; Start 03/22/17 at 18:00 Nitroglycerin (Nitroglycerin 2% Oint) 1 inch Q6H PRN TD CHEST PAIN Last administered on 03/22/17 22:56; Admin Dose 1 INCH; Start 03/22/17 at 18:00 Nystatin (Nystatin Susp) 5 ml BID GTB Last administered on 03/28/17 08:22; Admin Dose 5 ML; Start 03/22/17 at 22:00 Oxycodone HCl (Roxicodone) 5 mg Q4H PRN GTB PAIN; Start 03/22/17 at 18:00 Polyethylene Glycol (Miralax) 17 gm DAILY GTB Last administered on 03/26/17 09 :54; Admin Dose 17 GM; Start 03/23/17 at 09:00 Prochlorperazine (Compazine Inj) 5 mg Q6H PRN IM NAUSEA AND/OR VOMITING; Start 03/22/17 at 18:00 Simethicone (Mylicon) 80 mg Q6H PRN PEG DISTENSION/GAS/BLOATING; Start at 18:00 Spironolactone (Aldactone) 25 mg DAILY GTB Last administered on 03/28/17 08:23 ; Admin Dose 25 MG; Start 03/23/17 at 09:00 Topiramate (Topamax) 25 mg BID GTB Last administered on 03/28/17 11:16; Admin Dose 25 MG; Start 03/22/17 at 21:00 Multivitamins (Thera-Plus) 5 ml DAILY GTB Last administered on 03/28/17 08:23 ; Admin Dose 5 ML; Start 03/23/17 at 09:00 Psyllium Hydrophilic Mucilloid (Metamucil (Sugar Free)) 1 pkt BID GTB Last administered on 03/26/17 09:54; Admin Dose 1 PKT; Start 03/22/17 at 22:00 Propranolol HCl (Inderal) 60 mg Q6 GTB Last administered on 03/28/17 12:52; Admin Dose 60 MG; Start 03/22/17 at 22:00 Ibuprofen (Motrin) 400 mg ONCE PRN PO PAIN OR TEMP ABOVE 38C Last administered on 03/25/17 03:28; Admin Dose 400 MG; Start 03/25/17 at 02:00 Acetaminophen (Tylenol Liquid) 325 mg Q6 GTB Last administered on 03/28/17 12: 52; Admin Dose 325 MG; Start 03/26/17 at 18:00 JAMAR MOSCOSO MD March 28, 2017 14:01
[2017-03-28] MEDS ORDERED: LIDOCAINE 1% (MPF) 5 ML VIAL SC ONE (14:30)
--- NOTE | 2017-03-28 14:38 | RADRPT ---
PROCEDURE: Chest x-ray CLINICAL INDICATION: Shortness of breath TECHNIQUE: Chest single view COMPARISON: 03/22/2017 FINDINGS: Tracheostomy tube remains in good position. Heart is normal in size. The pulmonary vessels are nor mal in caliber. There are increased bilateral perihilar markings with peribronchial thickening. Th is may represent chronic change versus bronchiolitis. No confluent pneumonia seen. Costophrenic an gles sharp. Bony thorax is unremarkable. IMPRESSION: 1. Tracheostomy tube remains in good position. 2. Increased bilateral perihilar markings with peribronchial thickening in a pattern which may repr esent bronchiolitis. 3. No confluent pneumonia RPTAT: HH .Nael Hubbard MD, MD Date Time Electronically viewed and signed by .Nael Hubbard MD, on 03/28/2017 14:38 .W/
[2017-03-29] VITALS (13 sets, daily range): BP systolic 107–132; BP diastolic 55–74; PULSE 78–127; RESP 16–20
[2017-03-29] MEDS: LANSOPRAZOLE 30 MG CAP GTB SCH (05:51)
[2017-03-29] MEDS: ACETAMINOPHEN 650MG/20.3ML CUP GTB SCH ×3 (05:51→17:26)
[2017-03-29] MEDS: PROPRANOLOL 40 MG TAB GTB SCH ×3 (05:52→17:27)
[2017-03-29 07:28] LABS: ADD SCAN DIFF NO
--- NOTE | 2017-03-29 07:33 | PN ---
DATE: 03/28/2017 discussed with the staff. ____ discussed with the patient's mother. The patient remains in s inus rhythm, sinus tachycardia. Remains nonverbal status post trach. MEDICATIONS: Reviewed. PHYSICAL EXAMINATION: VITAL SIGNS: Temperature 99.5, heart rate of 124, blood pressure 118/71, respiratory rate of 25. HEENT: Normocephalic, atraumatic. NECK: Status post tracheostomy. CARDIOVASCULAR: Regular rate and rhythm. PULMONARY: No wheezes. GASTROINTESTINAL: Soft, nontender. EXTREMITIES: With mild lower extremity edema. NEUROLOGIC: Opens her eyes only. PSYCHIATRIC: Unable to assess. ASSESSMENT: 1. Sinus tachycardia, multifactorial. 2. Respiratory failure, status post tracheostomy. 3. Recurrent fever. 4. Anoxic brain injury. 5. History of substance abuse. RECOMMENDATIONS: Aggressive pulmonary care and suctioning will be continued. Continue supportive c are. Beta viviana will be continued. ____ now. Dictated By: VISHAL PARK/MAKAYLA Conf#: [id number] DID#: [id number]
[2017-03-29 07:40] LABS: BASOPHIL # 0.1 10^3/ul (0.0-0.1); BASOPHILS % 0.5 % (0.0-2.0); EOSINOPHILS # 0.2 10^3/ul (0.0-0.5); EOSINOPHILS % 2.1 % (0.0-7.0); HEMATOCRIT 39.9 % (42.0-52.0); LYMPHOCYTES # 1.7 10^3/ul (0.8-2.9); LYMPHOCYTES % 18.5 % (15.0-51.0); MEAN CORPUSCULAR HEMOGLOBIN 29.1 pg (29.0-33.0); MEAN CORPUSCULAR HGB CONC 32.6 g/dl (32.0-37.0); MEAN CORPUSCULAR VOLUME 89.5 fl (82.0-101.0); MONOCYTE # 0.8 10^3/ul (0.3-0.9); MONOCYTES % 8.5 % (0.0-11.0); NEUTROPHIL # 6.4 10^3/ul (1.6-7.5); NEUTROPHILS % 69.7 % (39.0-77.0); PLATELET COUNT 333 10^3/UL (140-415); RED BLOOD COUNT 4.46 10^6/ul (4.70-6.10); RED CELL DISTRIBUTION WIDTH 14.7 % (11.5-14.5); WHITE BLOOD COUNT 9.2 10^3/ul (4.8-10.8)
[2017-03-29] MEDS: SPIRONOLACTONE 25 MG TAB GTB SCH (08:59)
[2017-03-29] MEDS: NYSTATIN SUSP 5 ML CUP GTB SCH ×2 (08:59→20:37)
[2017-03-29] MEDS: CHLORHEXIDINE GLUCONATE 15 ML UD CUP MM SCH ×2 (08:59→20:37)
[2017-03-29] MEDS: MULTIVITAMINS 5 ML CUP GTB SCH (08:59)
[2017-03-29] MEDS: TOPIRAMATE 25 MG TAB GTB SCH ×2 (08:59→20:37)
[2017-03-29] MEDS: LEVETIRACETAM (100 MG/ML) 5ML CUP GTB SCH ×2 (08:59→20:37)
[2017-03-29] MEDS: LACTOBACILLUS RHAMNOSUS CAP GTB SCH (08:59)
[2017-03-29] MEDS: DOCUSATE SODIUM 10 MG/ML (10ML CUP) GTB SCH ×2 (09:00→20:25)
[2017-03-29] MEDS: LACTULOSE 30ML CUP GTB SCH ×2 (09:00→20:25)
[2017-03-29] MEDS: POLYETHYLENE GLYCOL 17 GM PACKET GTB SCH (09:00)
[2017-03-29] MEDS: PSYLLIUM (SUGAR FREE) PACKET GTB SCH ×2 (09:00→20:26)
[2017-03-29] MEDS: MAGNESIUM HYDROXIDE 30ML CUP GTB SCH (09:00)
[2017-03-29] MEDS: AMLODIPINE 5 MG TAB GTB SCH (09:00)
[2017-03-29] MEDS: LISINOPRIL 20 MG TAB GTB SCH (09:01)
[2017-03-29] MEDS: APIXABAN 5 MG TABLET GTB SCH ×2 (09:01→20:37)
[2017-03-29] MEDS ORDERED: VANCOMYCIN IV PER PHARMACY XX SCH (11:00)
--- NOTE | 2017-03-29 12:09 | CONS ---
Date/Time of Note Date/Time of Note DATE: 03/29/17 TIME: 11:52 Assessment/Plan Assessment/Plan Additional Assessment/Plan Chest x-ray was reviewed from yesterday which is essentially clear. Neck Assessment recommendations; 1. Patient admitted for low-grade intermittent fever which according to the patient's mother has been an ongoing complaint ever since the patient's anoxic brain injury likely INSECT CONTROL AIDE injury is etiology. 2. Clinically there is no suspicion of any infectious process. 3. Persistent vegetative state. Patient however doing fairly well on T-piece. Continue current treatment however I would recommend stopping antibiotics. Consultation Date/Type/Reason Admit Date/Time March 22, 2017 at 14:56 Type of Consultation: Pulmonary 24 HR Interval Summary Free Text/Dictation Patient condition remains stable. However he still spiking fevers off and on. Which according to the patient's mother has been an ongoing concern ever since the patient's anoxic brain injury and extensive workup was done at [facility]. And the cause was attributed likely to INSECT CONTROL AIDE injury. Exam/Review of Systems Vital Signs Vitals Vital Signs Date Time Temp Pulse Resp B/P Pulse Ox O2 Delivery O2 Flow Rate FiO2 03/29/17 11:18 98.2 106 16 132/63 99 03/29/17 08:01 5.0 28 03/29/17 08:01 Aerosol Intake and Output 03/28/17 03/28/17 03/29/17 15:00 23:00 07:00 Intake Total 540 ml 1260 ml Output Total 400 ml 600 ml Balance 140 ml 660 ml Exam HEENT: Supple neck, tracheostomy in place. No lymphadenopathy. Patient has fair dentition. Pupils are midsize and reactive to light. Chest examined; clear to auscultation. S1-S2 audible, no murmurs. Regular rhythm. Abdomen examination; soft, nondistended. No organomegaly. Bowel sounds audible. G-tube in place. Skin examination : no skin ulcerations. Extremity examination of Junior no peripheral edema. INSECT CONTROL AIDE examination; patient remains in persistent vegetative state. Results Result Diagram: 03/29/17 0634 03/28/17 0706 Results 24 hrs Laboratory Tests Test 03/29/17 06:34 White Blood Count 9.2 # Red Blood Count 4.46 L Hemoglobin 13.0 L Hematocrit 39.9 L Mean Corpuscular Volume 89.5 Mean Corpuscular Hemoglobin 29.1 Mean Corpuscular Hemoglobin Concent 32.6 Red Cell Distribution Width 14.7 H Platelet Count 333 Mean Platelet Volume 11.0 H Neutrophils % 69.7 Lymphocytes % 18.5 Monocytes % 8.5 Eosinophils % 2.1 Basophils % 0.5 Nucleated Red Blood Cells % 0.0 Neutrophils # 6.4 Lymphocytes # 1.7 Monocytes # 0.8 Eosinophils # 0.2 Basophils # 0.1 Nucleated Red Blood Cells # 0.0 Medications Medications Current Medications Ondansetron HCl (Zofran Inj) 4 mg Q6H PRN IV NAUSEA AND/OR VOMITING Last administered on 03/24/17 06:07; Admin Dose 4 MG; Start 03/22/17 at 18:00 Acetaminophen (Tylenol Liquid) 500 mg Q6H PRN GTB PAIN AND OR ELEVATED TEMP Last administered on 03/25/17 09:20; Admin Dose 500 MG; Start 03/22/17 at 18:00 Amlodipine Besylate (Norvasc) 5 mg DAILY GTB Last administered on 03/27/17 08: 06; Admin Dose 5 MG; Start 03/23/17 at 09:00 Apixaban (Eliquis) 5 mg BID GTB Last administered on 03/29/17 09:01; Admin Dose 5 MG; Start 03/22/17 at 21:00 Baclofen (Lioresal) 10 mg BID PRN GTB MUSCLE SPASMS; Start 03/22/17 at 18:00 Chlorhexidine Gluconate (Peridex) 15 ml Q12 MM Last administered on 03/29/17 08:59; Admin Dose 15 ML; Start 03/22/17 at 21:00 Docusate Sodium (Colace Liquid Cup) 100 mg BID GTB Last administered on 22:26; Admin Dose 100 MG; Start 03/22/17 at 21:00 Hydralazine HCl (Apresoline) 25 mg Q8 PRN GTB SBP>170; Start 03/22/17 at 18:00 Lactobacillus Acidophilus/ Rhamnosus (Culturelle) 1 cap DAILY GTB Last administered on 03/29/17 08:59; Admin Dose 1 CAP; Start 03/23/17 at 09:00 Lactulose (Enulose) 20 gm BID GTB Last administered on 03/26/17 09:54; Admin Dose 20 GM; Start 03/22/17 at 21:00 Lansoprazole (Prevacid) 30 mg DAILY@06 GTB Last administered on 03/29/17 05:51 ; Admin Dose 30 MG; Start 03/23/17 at 06:00 Levetiracetam (Keppra Liquid) 2,000 mg BID GTB Last administered on 03/29/17 08:59; Admin Dose 2,000 MG; Start 03/22/17 at 21:00 Lisinopril (Zestril) 20 mg DAILY GTB Last administered on 03/29/17 09:01; Admin Dose 20 MG; Start 03/22/17 at 22:00 Magnesium Hydroxide (Milk Of Mag) 30 ml DAILY GTB Last administered on 09:54; Admin Dose 30 ML; Start 03/23/17 at 09:00 Sodium Biphosphate/ Sodium Phosphate (Fleet Enema) 133 ml DAILY PRN [place] CONSTIPATION; Start 03/22/17 at 18:00 Nitroglycerin (Nitroglycerin 2% Oint) 1 inch Q6H PRN TD CHEST PAIN Last administered on 03/22/17 22:56; Admin Dose 1 INCH; Start 03/22/17 at 18:00 Nystatin (Nystatin Susp) 5 ml BID GTB Last administered on 03/29/17 08:59; Admin Dose 5 ML; Start 03/22/17 at 22:00 Oxycodone HCl (Roxicodone) 5 mg Q4H PRN GTB PAIN; Start 03/22/17 at 18:00 Polyethylene Glycol (Miralax) 17 gm DAILY GTB Last administered on 03/26/17 09 :54; Admin Dose 17 GM; Start 03/23/17 at 09:00 Prochlorperazine (Compazine Inj) 5 mg Q6H PRN IM NAUSEA AND/OR VOMITING; Start 03/22/17 at 18:00 Simethicone (Mylicon) 80 mg Q6H PRN PEG DISTENSION/GAS/BLOATING; Start at 18:00 Spironolactone (Aldactone) 25 mg DAILY GTB Last administered on 03/29/17 08:59 ; Admin Dose 25 MG; Start 03/23/17 at 09:00 Topiramate (Topamax) 25 mg BID GTB Last administered on 03/29/17 08:59; Admin Dose 25 MG; Start 03/22/17 at 21:00 Multivitamins (Thera-Plus) 5 ml DAILY GTB Last administered on 03/29/17 08:59 ; Admin Dose 5 ML; Start 03/23/17 at 09:00 Psyllium Hydrophilic Mucilloid (Metamucil (Sugar Free)) 1 pkt BID GTB Last administered on 03/26/17 09:54; Admin Dose 1 PKT; Start 03/22/17 at 22:00 Propranolol HCl (Inderal) 60 mg Q6 GTB Last administered on 03/29/17 05:52; Admin Dose 60 MG; Start 03/22/17 at 22:00 Ibuprofen (Motrin) 400 mg ONCE PRN PO PAIN OR TEMP ABOVE 38C Last administered on 03/25/17 03:28; Admin Dose 400 MG; Start 03/25/17 at 02:00 Acetaminophen 325 mg 325 mg Q6 GTB Last administered on 03/29/17 05:51; Admin Dose 325 MG; Start 03/26/17 at 18:00 Piperacillin Sod/ Tazobactam Sod 100 ml @ 200 mls/hr Q8 IVPB ; Start 03/29/17 at 14:00 Vancomycin HCl 1.25 gm/Sodium Chloride 250 ml @ 83.333 mls/ hr ONCE IVPB ; Start 03/29/17 at 13:00; Stop 03/29/17 at 18:00 Vancomycin HCl (Vancocin) 250 ml @ 125 mls/hr Q8H IVPB ; Start 03/29/17 at 21: 00 MARQUITA GRACIA March 29, 2017 12:03
[2017-03-29] MEDS ORDERED: VANCOMYCIN 1.25 GM in SOD CHLORIDE 0.9% 250 ML IVPB SCH (13:00)
--- NOTE | 2017-03-29 13:17 | PN ---
Date/Time of Note Date/Time of Note DATE: 03/29/17 TIME: 13:14 Assessment/Plan VTE Prophylaxis VTE Prophylaxis Intervention: other Lines/Catheters IV Catheter Type ([facility] Mid Line Urinary Cath still in place: No Assessment/Plan Assessment/Plan 1. Fever, probably pulmonary from aspiration or atelectasis, RT for respiratory toilet, reviewed pulmonology and ID notes 2. Anoxic encephalopathy with chronic debility status post percutaneous endoscopic gastrostomy and tracheostomy as well as craniectomy, supportive care 3. Hypertension-stable 4. GIB-pt had coffee ground emesis-now resolved 5. Hematuria likely secondary to traumatic Talley, follow up with Urology consultation 6. History of substance abuse in the past 7. Prophylaxis: eliquis Subjective 24 Hr Interval Summary Free Text/Dictation alert but nonverbal Tmax 102.3 Exam/Review of Systems Vital Signs Vitals Vital Signs Date Time Temp Pulse Resp B/P Pulse Ox O2 Delivery O2 Flow Rate FiO2 03/29/17 12:00 115 03/29/17 11:18 98.2 16 132/63 99 03/29/17 08:01 5.0 28 03/29/17 08:01 Aerosol Intake and Output 03/28/17 03/28/17 03/29/17 15:00 23:00 07:00 Intake Total 540 ml 1260 ml Output Total 400 ml 600 ml Balance 140 ml 660 ml Exam Constitutional: alert, non-verbal Head: atraumatic, normocephalic Eyes: EOMI, PERRL, nl conjunctiva, nl lids ENMT: nl external ears & nose, nl lips & teeth, nl nasal mucosa & septum Neck: non-tender, supple Respiratory: clear to auscultation Cardiovascular: nl pulses, regular rate and rhythm, No S3, No S4, No bruits, No diastolic murmur, No edema, No gallop, No irregular rhythm, No jugular venous distention (JVD), No murmurs/extra sounds, No other, No rub, No systolic murmur Gastrointestinal: nl liver, spleen, soft Extremities: normal pulses, other (contraction on limbs) Neurological: confused Results Result Diagram: 03/29/17 0634 03/28/17 0706 Results 24 hrs Laboratory Tests Test 03/29/17 06:34 White Blood Count 9.2 # Red Blood Count 4.46 L Hemoglobin 13.0 L Hematocrit 39.9 L Mean Corpuscular Volume 89.5 Mean Corpuscular Hemoglobin 29.1 Mean Corpuscular Hemoglobin Concent 32.6 Red Cell Distribution Width 14.7 H Platelet Count 333 Mean Platelet Volume 11.0 H Neutrophils % 69.7 Lymphocytes % 18.5 Monocytes % 8.5 Eosinophils % 2.1 Basophils % 0.5 Nucleated Red Blood Cells % 0.0 Neutrophils # 6.4 Lymphocytes # 1.7 Monocytes # 0.8 Eosinophils # 0.2 Basophils # 0.1 Nucleated Red Blood Cells # 0.0 Medications Medications Current Medications Ondansetron HCl (Zofran Inj) 4 mg Q6H PRN IV NAUSEA AND/OR VOMITING Last administered on 03/24/17 06:07; Admin Dose 4 MG; Start 03/22/17 at 18:00 Acetaminophen (Tylenol Liquid) 500 mg Q6H PRN GTB PAIN AND OR ELEVATED TEMP Last administered on 03/25/17 09:20; Admin Dose 500 MG; Start 03/22/17 at 18:00 Amlodipine Besylate (Norvasc) 5 mg DAILY GTB Last administered on 03/27/17 08: 06; Admin Dose 5 MG; Start 03/23/17 at 09:00 Apixaban (Eliquis) 5 mg BID GTB Last administered on 03/29/17 09:01; Admin Dose 5 MG; Start 03/22/17 at 21:00 Baclofen (Lioresal) 10 mg BID PRN GTB MUSCLE SPASMS; Start 03/22/17 at 18:00 Chlorhexidine Gluconate (Peridex) 15 ml Q12 MM Last administered on 03/29/17 08:59; Admin Dose 15 ML; Start 03/22/17 at 21:00 Docusate Sodium (Colace Liquid Cup) 100 mg BID GTB Last administered on 22:26; Admin Dose 100 MG; Start 03/22/17 at 21:00 Hydralazine HCl (Apresoline) 25 mg Q8 PRN GTB SBP>170; Start 03/22/17 at 18:00 Lactobacillus Acidophilus/ Rhamnosus (Culturelle) 1 cap DAILY GTB Last administered on 03/29/17 08:59; Admin Dose 1 CAP; Start 03/23/17 at 09:00 Lactulose (Enulose) 20 gm BID GTB Last administered on 03/26/17 09:54; Admin Dose 20 GM; Start 03/22/17 at 21:00 Lansoprazole (Prevacid) 30 mg DAILY@06 GTB Last administered on 03/29/17 05:51 ; Admin Dose 30 MG; Start 03/23/17 at 06:00 Levetiracetam (Keppra Liquid) 2,000 mg BID GTB Last administered on 03/29/17 08:59; Admin Dose 2,000 MG; Start 03/22/17 at 21:00 Lisinopril (Zestril) 20 mg DAILY GTB Last administered on 03/29/17 09:01; Admin Dose 20 MG; Start 03/22/17 at 22:00 Magnesium Hydroxide (Milk Of Mag) 30 ml DAILY GTB Last administered on 09:54; Admin Dose 30 ML; Start 03/23/17 at 09:00 Sodium Biphosphate/ Sodium Phosphate (Fleet Enema) 133 ml DAILY PRN [place] CONSTIPATION; Start 03/22/17 at 18:00 Nitroglycerin (Nitroglycerin 2% Oint) 1 inch Q6H PRN TD CHEST PAIN Last administered on 03/22/17 22:56; Admin Dose 1 INCH; Start 03/22/17 at 18:00 Nystatin (Nystatin Susp) 5 ml BID GTB Last administered on 03/29/17 08:59; Admin Dose 5 ML; Start 03/22/17 at 22:00 Oxycodone HCl (Roxicodone) 5 mg Q4H PRN GTB PAIN; Start 03/22/17 at 18:00 Polyethylene Glycol (Miralax) 17 gm DAILY GTB Last administered on 03/26/17 09 :54; Admin Dose 17 GM; Start 03/23/17 at 09:00 Prochlorperazine (Compazine Inj) 5 mg Q6H PRN IM NAUSEA AND/OR VOMITING; Start 03/22/17 at 18:00 Simethicone (Mylicon) 80 mg Q6H PRN PEG DISTENSION/GAS/BLOATING; Start at 18:00 Spironolactone (Aldactone) 25 mg DAILY GTB Last administered on 5/17/17at 08:59 ; Admin Dose 25 MG; Start 03/23/17 at 09:00 Topiramate (Topamax) 25 mg BID GTB Last administered on 03/29/17 08:59; Admin Dose 25 MG; Start 03/22/17 at 21:00 Multivitamins (Thera-Plus) 5 ml DAILY GTB Last administered on 03/29/17 08:59 ; Admin Dose 5 ML; Start 03/23/17 at 09:00 Psyllium Hydrophilic Mucilloid (Metamucil (Sugar Free)) 1 pkt BID GTB Last administered on 03/26/17 09:54; Admin Dose 1 PKT; Start 03/22/17 at 22:00 Propranolol HCl (Inderal) 60 mg Q6 GTB Last administered on 03/29/17 12:53; Admin Dose 60 MG; Start 03/22/17 at 22:00 Ibuprofen (Motrin) 400 mg ONCE PRN PO PAIN OR TEMP ABOVE 38C Last administered on 03/25/17 03:28; Admin Dose 400 MG; Start 03/25/17 at 02:00 Acetaminophen 325 mg 325 mg Q6 GTB Last administered on 03/29/17 12:53; Admin Dose 325 MG; Start 03/26/17 at 18:00 Vancomycin HCl/ Sodium Chloride (Vancocin/NS) 250 ml @ 83.333 mls/ hr ONCE IVPB ; Start 03/29/17 at 13:00; Stop 03/29/17 at 18:00 JAMAR MOSCOSO MD March 29, 2017 13:16
[2017-03-29] MEDS ORDERED: PIPER-TAZO 3.375 GM IV (PMX) 100 ML IVPB SCH (14:00)
--- NOTE | 2017-03-29 14:08 | PN ---
DATE: 03/29/2017 SUBJECTIVE: The patient himself is nonverbal, noncommunicative. Mother is at his bedside. Initial ly, patient did have hematuria from prior catheterization. At present, he does have a condom cathet er and the urine is clear. OBJECTIVE: VITAL SIGNS: His temperature is 98.2, blood pressure 132/63, pulse is 115, respiration is 16. ABDOMEN: Soft. The bladder is not distended. The external genitalia, he does have the condom cath eter, and the urine in the tubing is clear. LABORATORY DATA: His CBC shows a white count of 9.2, hemoglobin 13.0, hematocrit 39.9. The BUN is 18, creatinine 0.66, sodium 144, potassium 4.0, chloride 114, CO2 18. Urine culture: No growth aft er 48 hours. IMPRESSION: Gross hematuria, traumatic, that has cleared, and the patient is voiding and the urine is clear. Therefore, at the present, we will just continue the present treatment. Dictated By: GERARDO CHE/MAKAYLA Conf#: [id number] DID#: [id number]
--- NOTE | 2017-03-29 14:17 | CONS ---
Date/Time of Note Date/Time of Note DATE: 03/29/17 TIME: 14:15 Assessment/Plan Assessment/Plan Chief Complaint/Hosp Course SUBJECTIVE: No acute events overnight, continues to spike fevers INDWELLINGS: Trach, PEG, Talley. PHYSICAL EXAMINATION: GENERAL: This is a chronically ill-appearing, young man, who is lying comfortably in bed. HEENT: He has a craniectomy noted. Buccal mucosa dry. NECK: Supple. Tracheostomy present. CHEST: Chest rise is symmetrical. Breath sounds diminished to the bases. HEART: S1, S2. ABDOMEN: Soft, bowel tones present. EXTREMITIES: Without cyanosis. ASSESSMENT: 1. Persistent fevers, possibly central. 2 Persistent vegetative state, status post intracranial hemorrhage. 3. Chronic respiratory failure and dysphagia. 4. History of substance abuse in the past. PLAN: The patient remains clinically unchanged. All cx's negative, CXR negative , pending procalcitonin level==> ordered 03/24. Will keep off abx. Consider wbc labeled nuclear scan. NILTON Royal who reviewed his cxr NILTON mother Problems: Consultation Date/Type/Reason Admit Date/Time March 22, 2017 at 14:56 Type of Consultation: id Exam/Review of Systems Vital Signs Vitals Vital Signs Date Time Temp Pulse Resp B/P Pulse Ox O2 Delivery O2 Flow Rate FiO2 03/29/17 12:00 115 03/29/17 11:18 98.2 16 132/63 99 03/29/17 08:01 5.0 28 03/29/17 08:01 Aerosol Intake and Output 03/28/17 03/28/17 03/29/17 15:00 23:00 07:00 Intake Total 540 ml 1260 ml Output Total 400 ml 600 ml Balance 140 ml 660 ml Results Result Diagram: 03/29/17 0634 03/28/17 0706 Results 24 hrs Laboratory Tests Test 03/29/17 06:34 White Blood Count 9.2 # Red Blood Count 4.46 L Hemoglobin 13.0 L Hematocrit 39.9 L Mean Corpuscular Volume 89.5 Mean Corpuscular Hemoglobin 29.1 Mean Corpuscular Hemoglobin Concent 32.6 Red Cell Distribution Width 14.7 H Platelet Count 333 Mean Platelet Volume 11.0 H Neutrophils % 69.7 Lymphocytes % 18.5 Monocytes % 8.5 Eosinophils % 2.1 Basophils % 0.5 Nucleated Red Blood Cells % 0.0 Neutrophils # 6.4 Lymphocytes # 1.7 Monocytes # 0.8 Eosinophils # 0.2 Basophils # 0.1 Nucleated Red Blood Cells # 0.0 Medications Medications Current Medications Ondansetron HCl (Zofran Inj) 4 mg Q6H PRN IV NAUSEA AND/OR VOMITING Last administered on 03/24/17 06:07; Admin Dose 4 MG; Start 03/22/17 at 18:00 Acetaminophen (Tylenol Liquid) 500 mg Q6H PRN GTB PAIN AND OR ELEVATED TEMP Last administered on 03/25/17 09:20; Admin Dose 500 MG; Start 03/22/17 at 18:00 Amlodipine Besylate (Norvasc) 5 mg DAILY GTB Last administered on 03/27/17 08: 06; Admin Dose 5 MG; Start 03/23/17 at 09:00 Apixaban (Eliquis) 5 mg BID GTB Last administered on 03/29/17 09:01; Admin Dose 5 MG; Start 03/22/17 at 21:00 Baclofen (Lioresal) 10 mg BID PRN GTB MUSCLE SPASMS; Start 03/22/17 at 18:00 Chlorhexidine Gluconate (Peridex) 15 ml Q12 MM Last administered on 03/29/17 08:59; Admin Dose 15 ML; Start 03/22/17 at 21:00 Docusate Sodium (Colace Liquid Cup) 100 mg BID GTB Last administered on 22:26; Admin Dose 100 MG; Start 03/22/17 at 21:00 Hydralazine HCl (Apresoline) 25 mg Q8 PRN GTB SBP>170; Start 03/22/17 at 18:00 Lactobacillus Acidophilus/ Rhamnosus (Culturelle) 1 cap DAILY GTB Last administered on 03/29/17 08:59; Admin Dose 1 CAP; Start 03/23/17 at 09:00 Lactulose (Enulose) 20 gm BID GTB Last administered on 03/26/17 09:54; Admin Dose 20 GM; Start 03/22/17 at 21:00 Lansoprazole (Prevacid) 30 mg DAILY@06 GTB Last administered on 03/29/17 05:51 ; Admin Dose 30 MG; Start 03/23/17 at 06:00 Levetiracetam (Keppra Liquid) 2,000 mg BID GTB Last administered on 03/29/17 08:59; Admin Dose 2,000 MG; Start 03/22/17 at 21:00 Lisinopril (Zestril) 20 mg DAILY GTB Last administered on 03/29/17 09:01; Admin Dose 20 MG; Start 03/22/17 at 22:00 Magnesium Hydroxide (Milk Of Mag) 30 ml DAILY GTB Last administered on 09:54; Admin Dose 30 ML; Start 03/23/17 at 09:00 Sodium Biphosphate/ Sodium Phosphate (Fleet Enema) 133 ml DAILY PRN [place] CONSTIPATION; Start 03/22/17 at 18:00 Nitroglycerin (Nitroglycerin 2% Oint) 1 inch Q6H PRN TD CHEST PAIN Last administered on 03/22/17 22:56; Admin Dose 1 INCH; Start 03/22/17 at 18:00 Nystatin (Nystatin Susp) 5 ml BID GTB Last administered on 03/29/17 08:59; Admin Dose 5 ML; Start 03/22/17 at 22:00 Oxycodone HCl (Roxicodone) 5 mg Q4H PRN GTB PAIN; Start 03/22/17 at 18:00 Polyethylene Glycol (Miralax) 17 gm DAILY GTB Last administered on 03/26/17 09 :54; Admin Dose 17 GM; Start 03/23/17 at 09:00 Prochlorperazine (Compazine Inj) 5 mg Q6H PRN IM NAUSEA AND/OR VOMITING; Start 03/22/17 at 18:00 Simethicone (Mylicon) 80 mg Q6H PRN PEG DISTENSION/GAS/BLOATING; Start at 18:00 Spironolactone (Aldactone) 25 mg DAILY GTB Last administered on 03/29/17 08:59 ; Admin Dose 25 MG; Start 03/23/17 at 09:00 Topiramate (Topamax) 25 mg BID GTB Last administered on 03/29/17 08:59; Admin Dose 25 MG; Start 03/22/17 at 21:00 Multivitamins (Thera-Plus) 5 ml DAILY GTB Last administered on 03/29/17 08:59 ; Admin Dose 5 ML; Start 03/23/17 at 09:00 Psyllium Hydrophilic Mucilloid (Metamucil (Sugar Free)) 1 pkt BID GTB Last administered on 03/26/17 09:54; Admin Dose 1 PKT; Start 03/22/17 at 22:00 Propranolol HCl (Inderal) 60 mg Q6 GTB Last administered on 03/29/17 12:53; Admin Dose 60 MG; Start 03/22/17 at 22:00 Ibuprofen (Motrin) 400 mg ONCE PRN PO PAIN OR TEMP ABOVE 38C Last administered on 03/25/17 03:28; Admin Dose 400 MG; Start 03/25/17 at 02:00 Acetaminophen 325 mg 325 mg Q6 GTB Last administered on 03/29/17 12:53; Admin Dose 325 MG; Start 03/26/17 at 18:00 Vancomycin HCl/ Sodium Chloride (Vancocin/NS) 250 ml @ 83.333 mls/ hr ONCE IVPB ; Start 03/29/17 at 13:00; Stop 03/29/17 at 18:00 KATI DONOVAN NP March 29, 2017 14:17
[2017-03-29] MEDS ORDERED: VANCOMYCIN 1 GM in NS 250 ML IVPB SCH (21:00)
[2017-03-30] VITALS (10 sets, daily range): BP systolic 109–150; BP diastolic 58–74; PULSE 95–125; RESP 16–20
[2017-03-30] MEDS: PROPRANOLOL 40 MG TAB GTB SCH ×4 (00:04→17:01)
[2017-03-30] MEDS: LANSOPRAZOLE 30 MG CAP GTB SCH (05:15)
[2017-03-30] MEDS: ACETAMINOPHEN 650MG/20.3ML CUP GTB SCH ×4 (05:16→17:01)
[2017-03-30 07:32] LABS: ADD SCAN DIFF NO
[2017-03-30 07:38] LABS: BASOPHILS % 0.5 % (0.0-2.0); EOSINOPHILS # 0.3 10^3/ul (0.0-0.5); EOSINOPHILS % 3.4 % (0.0-7.0); HEMATOCRIT 40.7 % (42.0-52.0); HEMOGLOBIN 13.1 g/dl (14.0-18.0); LYMPHOCYTES # 1.5 10^3/ul (0.8-2.9); LYMPHOCYTES % 17.4 % (15.0-51.0); MEAN CORPUSCULAR HEMOGLOBIN 29.1 pg (29.0-33.0); MEAN CORPUSCULAR HGB CONC 32.2 g/dl (32.0-37.0); MEAN CORPUSCULAR VOLUME 90.4 fl (82.0-101.0); MEAN PLATELET VOLUME 10.6 fl (7.4-10.4); MONOCYTE # 0.9 10^3/ul (0.3-0.9); NEUTROPHILS % 68.1 % (39.0-77.0); PLATELET COUNT 351 10^3/UL (140-415); RED CELL DISTRIBUTION WIDTH 14.8 % (11.5-14.5); WHITE BLOOD COUNT 8.8 10^3/ul (4.8-10.8)
[2017-03-30 08:45] LABS: CALCIUM 9.4 mg/dl (8.4-10.2); CREATININE 0.64 mg/dl (0.61-1.24); POTASSIUM 4.7 mmol/L (3.5-5.1)
[2017-03-30] MEDS: AMLODIPINE 5 MG TAB GTB SCH (08:47)
[2017-03-30] MEDS: MULTIVITAMINS 5 ML CUP GTB SCH (08:54)
[2017-03-30] MEDS: LEVETIRACETAM (100 MG/ML) 5ML CUP GTB SCH ×2 (08:54→20:27)
[2017-03-30] MEDS: NYSTATIN SUSP 5 ML CUP GTB SCH ×2 (08:54→20:26)
[2017-03-30] MEDS: SPIRONOLACTONE 25 MG TAB GTB SCH (08:54)
[2017-03-30] MEDS: APIXABAN 5 MG TABLET GTB SCH ×2 (08:55→20:26)
[2017-03-30] MEDS: LISINOPRIL 20 MG TAB GTB SCH (08:55)
[2017-03-30] MEDS: LACTOBACILLUS RHAMNOSUS CAP GTB SCH (08:55)
[2017-03-30] MEDS: TOPIRAMATE 25 MG TAB GTB SCH ×2 (08:55→20:26)
[2017-03-30] MEDS: PSYLLIUM (SUGAR FREE) PACKET GTB SCH ×2 (09:00→20:29)
[2017-03-30] MEDS: POLYETHYLENE GLYCOL 17 GM PACKET GTB SCH (09:00)
[2017-03-30] MEDS: DOCUSATE SODIUM 10 MG/ML (10ML CUP) GTB SCH ×2 (09:00→20:28)
[2017-03-30] MEDS: LACTULOSE 30ML CUP GTB SCH ×2 (09:00→20:29)
[2017-03-30] MEDS: MAGNESIUM HYDROXIDE 30ML CUP GTB SCH (09:00)
[2017-03-30] MEDS: CHLORHEXIDINE GLUCONATE 15 ML UD CUP MM SCH ×2 (09:04→20:27)
--- NOTE | 2017-03-30 11:10 | CONS ---
Date/Time of Note Date/Time of Note DATE: 03/30/17 TIME: 11:08 Assessment/Plan Assessment/Plan Additional Assessment/Plan Assessment recommendations; next 1. Patient admitted for low-grade fever, which according to the patient's mother has been an ongoing issue ever since the patient's brain injury and has been attributed to WORKFORCE MANAGEMENT MANAGER injury. 2. No obvious focal source of infection. 3. History of hypertension. 4. Stable seizure disorder. 5. Persistent vegetative state. Continue current treatment. Consider discharge. Consultation Date/Type/Reason Admit Date/Time March 22, 2017 at 14:56 Type of Consultation: Pulmonary 24 HR Interval Summary Free Text/Dictation Patient's condition remains stable. Still having low-grade fevers off and on. Has remained hemodynamically stable. No overt seizure activity noted. General exam; young male, currently in no distress, unresponsive. Maintain on tracheal T piece. Exam/Review of Systems Vital Signs Vitals Vital Signs Date Time Temp Pulse Resp B/P Pulse Ox O2 Delivery O2 Flow Rate FiO2 03/30/17 08:03 100.4 108 20 112/58 98 03/30/17 08:00 5.0 03/30/17 01:31 28 03/29/17 20:20 Aerosol Intake and Output 03/29/17 03/29/17 03/30/17 15:00 23:00 07:00 Intake Total 1630 ml 850 ml Output Total 700 ml 1600 ml Balance 930 ml -750 ml Exam HEENT exam is; supple neck, no JVD. No lymphadenopathy. Midline trachea. No thyromegaly. Tracheostomy placed with clean insertion site. Patient has fair dentition. Pupils are midsize and reactive to light. Chest examination; clear to auscultation. S1-S2 audible, no murmurs. Regular rhythm. Abdomen examination; soft, not distended. G-tube in place. Bowel sounds audible. Extremity examination; no peripheral edema. WORKFORCE MANAGEMENT MANAGER examination; patient remains in persistent vegetative state. Results Result Diagram: 03/30/17 0711 03/30/17 0711 Results 24 hrs Laboratory Tests Test 03/30/17 07:11 White Blood Count 8.8 Red Blood Count 4.50 L Hemoglobin 13.1 L Hematocrit 40.7 L Mean Corpuscular Volume 90.4 Mean Corpuscular Hemoglobin 29.1 Mean Corpuscular Hemoglobin Concent 32.2 Red Cell Distribution Width 14.8 H Platelet Count 351 Mean Platelet Volume 10.6 H Neutrophils % 68.1 Lymphocytes % 17.4 Monocytes % 10.0 Eosinophils % 3.4 Basophils % 0.5 Nucleated Red Blood Cells % 0.0 Neutrophils # 6.0 Lymphocytes # 1.5 Monocytes # 0.9 Eosinophils # 0.3 Basophils # 0.0 Nucleated Red Blood Cells # 0.0 Sodium Level 140 Potassium Level 4.7 Chloride Level 111 H Carbon Dioxide Level 19 L Anion Gap 15 Blood Urea Nitrogen 19 Creatinine 0.64 Glucose Level 113 Calcium Level 9.4 Medications Medications Current Medications Ondansetron HCl (Zofran Inj) 4 mg Q6H PRN IV NAUSEA AND/OR VOMITING Last administered on 03/24/17 06:07; Admin Dose 4 MG; Start 03/22/17 at 18:00 Acetaminophen (Tylenol Liquid) 500 mg Q6H PRN GTB PAIN AND OR ELEVATED TEMP Last administered on 03/25/17 09:20; Admin Dose 500 MG; Start 03/22/17 at 18:00 Amlodipine Besylate (Norvasc) 5 mg DAILY GTB Last administered on 03/27/17 08: 06; Admin Dose 5 MG; Start 03/23/17 at 09:00 Apixaban (Eliquis) 5 mg BID GTB Last administered on 03/30/17 08:55; Admin Dose 5 MG; Start 03/22/17 at 21:00 Baclofen (Lioresal) 10 mg BID PRN GTB MUSCLE SPASMS; Start 03/22/17 at 18:00 Chlorhexidine Gluconate (Peridex) 15 ml Q12 MM Last administered on 03/30/17 09:04; Admin Dose 15 ML; Start 03/22/17 at 21:00 Docusate Sodium (Colace Liquid Cup) 100 mg BID GTB Last administered on 22:26; Admin Dose 100 MG; Start 03/22/17 at 21:00 Hydralazine HCl (Apresoline) 25 mg Q8 PRN GTB SBP>170; Start 03/22/17 at 18:00 Lactobacillus Acidophilus/ Rhamnosus (Culturelle) 1 cap DAILY GTB Last administered on 03/30/17 08:55; Admin Dose 1 CAP; Start 03/23/17 at 09:00 Lactulose (Enulose) 20 gm BID GTB Last administered on 03/26/17 09:54; Admin Dose 20 GM; Start 03/22/17 at 21:00 Lansoprazole (Prevacid) 30 mg DAILY@06 GTB Last administered on 03/30/17 05:15 ; Admin Dose 30 MG; Start 03/23/17 at 06:00 Levetiracetam (Keppra Liquid) 2,000 mg BID GTB Last administered on 03/30/17 08:54; Admin Dose 2,000 MG; Start 03/22/17 at 21:00 Lisinopril (Zestril) 20 mg DAILY GTB Last administered on 03/30/17 08:55; Admin Dose 20 MG; Start 03/22/17 at 22:00 Magnesium Hydroxide (Milk Of Mag) 30 ml DAILY GTB Last administered on 09:54; Admin Dose 30 ML; Start 03/23/17 at 09:00 Sodium Biphosphate/ Sodium Phosphate (Fleet Enema) 133 ml DAILY PRN [place] CONSTIPATION; Start 03/22/17 at 18:00 Nitroglycerin (Nitroglycerin 2% Oint) 1 inch Q6H PRN TD CHEST PAIN Last administered on 03/22/17 22:56; Admin Dose 1 INCH; Start 03/22/17 at 18:00 Nystatin (Nystatin Susp) 5 ml BID GTB Last administered on 03/30/17 08:54; Admin Dose 5 ML; Start 03/22/17 at 22:00 Oxycodone HCl (Roxicodone) 5 mg Q4H PRN GTB PAIN; Start 03/22/17 at 18:00 Polyethylene Glycol (Miralax) 17 gm DAILY GTB Last administered on 03/26/17 09 :54; Admin Dose 17 GM; Start 03/23/17 at 09:00 Prochlorperazine (Compazine Inj) 5 mg Q6H PRN IM NAUSEA AND/OR VOMITING; Start 03/22/17 at 18:00 Simethicone (Mylicon) 80 mg Q6H PRN PEG DISTENSION/GAS/BLOATING; Start at 18:00 Spironolactone (Aldactone) 25 mg DAILY GTB Last administered on 03/30/17 08:54 ; Admin Dose 25 MG; Start 03/23/17 at 09:00 Topiramate (Topamax) 25 mg BID GTB Last administered on 03/30/17 08:55; Admin Dose 25 MG; Start 03/22/17 at 21:00 Multivitamins (Thera-Plus) 5 ml DAILY GTB Last administered on 03/30/17 08:54 ; Admin Dose 5 ML; Start 03/23/17 at 09:00 Psyllium Hydrophilic Mucilloid (Metamucil (Sugar Free)) 1 pkt BID GTB Last administered on 03/26/17 09:54; Admin Dose 1 PKT; Start 03/22/17 at 22:00 Propranolol HCl (Inderal) 60 mg Q6 GTB Last administered on 03/30/17 05:15; Admin Dose 60 MG; Start 03/22/17 at 22:00 Ibuprofen (Motrin) 400 mg ONCE PRN PO PAIN OR TEMP ABOVE 38C Last administered on 03/25/17 03:28; Admin Dose 400 MG; Start 03/25/17 at 02:00 Acetaminophen (Tylenol Liquid) 325 mg Q6 GTB Last administered on 03/30/17 05: 16; Admin Dose 325 MG; Start 03/26/17 at 18:00 MARQUITA GRACIA March 30, 2017 11:10
--- NOTE | 2017-03-30 13:37 | PN ---
Date/Time of Note Date/Time of Note DATE: 03/30/17 TIME: 13:34 Assessment/Plan VTE Prophylaxis VTE Prophylaxis Intervention: other Lines/Catheters IV Catheter Type (from [facility]): Mid Line Urinary Cath still in place: No Assessment/Plan Assessment/Plan 1. Fever, no clear source of infection, off of antibiotics, follow up with ID 2. Anoxic encephalopathy with chronic debility status post percutaneous endoscopic gastrostomy and tracheostomy as well as craniectomy, supportive care 3. Hypertension-stable 4. History of substance abuse in the past 5. Prophylaxis: eliquis Subjective 24 Hr Interval Summary Free Text/Dictation low grade fever Exam/Review of Systems Vital Signs Vitals Vital Signs Date Time Temp Pulse Resp B/P Pulse Ox O2 Delivery O2 Flow Rate FiO2 03/30/17 12:25 114 03/30/17 12:16 99.0 18 109/70 98 03/30/17 08:00 5.0 03/30/17 01:31 28 03/29/17 20:20 Aerosol Intake and Output 03/29/17 03/29/17 03/30/17 15:00 23:00 07:00 Intake Total 1630 ml 850 ml Output Total 700 ml 1600 ml Balance 930 ml -750 ml Exam Constitutional: alert, non-verbal Eyes: EOMI, PERRL, nl conjunctiva, nl lids ENMT: nl external ears & nose, nl lips & teeth, nl nasal mucosa & septum Neck: non-tender, supple Respiratory: clear to auscultation, normal air movement, No congested cough, No crackles/rales, No diminished breath sounds, No intercostal retraction, No labored breathing, No other, No respirations, No tactile fremitus, No wheezing Cardiovascular: nl pulses, regular rate and rhythm, No S3, No S4, No bruits, No diastolic murmur, No edema, No gallop, No irregular rhythm, No jugular venous distention (JVD), No murmurs/extra sounds, No other, No rub, No systolic murmur Gastrointestinal: nl liver, spleen, non-tender, soft, No ascites, No bowel sounds, No distended, No firm, No hepatomegaly, No mass , No other, No rebound or guarding, No splenomegaly, No surgical scars, No tender Musculoskeletal: other (contracted) Extremities: normal pulses Neurological: other (alert, confused, nonverbal) Skin: nl turgor Lymph: nl lymph nodes Results Result Diagram: 03/30/17 0711 03/30/17 0711 Results 24 hrs Laboratory Tests Test 03/30/17 07:11 White Blood Count 8.8 Red Blood Count 4.50 L Hemoglobin 13.1 L Hematocrit 40.7 L Mean Corpuscular Volume 90.4 Mean Corpuscular Hemoglobin 29.1 Mean Corpuscular Hemoglobin Concent 32.2 Red Cell Distribution Width 14.8 H Platelet Count 351 Mean Platelet Volume 10.6 H Neutrophils % 68.1 Lymphocytes % 17.4 Monocytes % 10.0 Eosinophils % 3.4 Basophils % 0.5 Nucleated Red Blood Cells % 0.0 Neutrophils # 6.0 Lymphocytes # 1.5 Monocytes # 0.9 Eosinophils # 0.3 Basophils # 0.0 Nucleated Red Blood Cells # 0.0 Sodium Level 140 Potassium Level 4.7 Chloride Level 111 H Carbon Dioxide Level 19 L Anion Gap 15 Blood Urea Nitrogen 19 Creatinine 0.64 Glucose Level 113 Calcium Level 9.4 Medications Medications Current Medications Ondansetron HCl (Zofran Inj) 4 mg Q6H PRN IV NAUSEA AND/OR VOMITING Last administered on 03/24/17 06:07; Admin Dose 4 MG; Start 03/22/17 at 18:00 Acetaminophen (Tylenol Liquid) 500 mg Q6H PRN GTB PAIN AND OR ELEVATED TEMP Last administered on 03/25/17 09:20; Admin Dose 500 MG; Start 03/22/17 at 18:00 Amlodipine Besylate (Norvasc) 5 mg DAILY GTB Last administered on 03/27/17 08: 06; Admin Dose 5 MG; Start 03/23/17 at 09:00 Apixaban (Eliquis) 5 mg BID GTB Last administered on 03/30/17 08:55; Admin Dose 5 MG; Start 03/22/17 at 21:00 Baclofen (Lioresal) 10 mg BID PRN GTB MUSCLE SPASMS; Start 03/22/17 at 18:00 Chlorhexidine Gluconate (Peridex) 15 ml Q12 MM Last administered on 03/30/17 09:04; Admin Dose 15 ML; Start 03/22/17 at 21:00 Docusate Sodium (Colace Liquid Cup) 100 mg BID GTB Last administered on 22:26; Admin Dose 100 MG; Start 03/22/17 at 21:00 Hydralazine HCl (Apresoline) 25 mg Q8 PRN GTB SBP>170; Start 03/22/17 at 18:00 Lactobacillus Acidophilus/ Rhamnosus (Culturelle) 1 cap DAILY GTB Last administered on 03/30/17 08:55; Admin Dose 1 CAP; Start 03/23/17 at 09:00 Lactulose (Enulose) 20 gm BID GTB Last administered on 03/26/17 09:54; Admin Dose 20 GM; Start 03/22/17 at 21:00 Lansoprazole (Prevacid) 30 mg DAILY@06 GTB Last administered on 03/30/17 05:15 ; Admin Dose 30 MG; Start 03/23/17 at 06:00 Levetiracetam (Keppra Liquid) 2,000 mg BID GTB Last administered on 03/30/17 08:54; Admin Dose 2,000 MG; Start 03/22/17 at 21:00 Lisinopril (Zestril) 20 mg DAILY GTB Last administered on 03/30/17 08:55; Admin Dose 20 MG; Start 03/22/17 at 22:00 Magnesium Hydroxide (Milk Of Mag) 30 ml DAILY GTB Last administered on 09:54; Admin Dose 30 ML; Start 03/23/17 at 09:00 Sodium Biphosphate/ Sodium Phosphate (Fleet Enema) 133 ml DAILY PRN [place] CONSTIPATION; Start 03/22/17 at 18:00 Nitroglycerin (Nitroglycerin 2% Oint) 1 inch Q6H PRN TD CHEST PAIN Last administered on 03/22/17 22:56; Admin Dose 1 INCH; Start 03/22/17 at 18:00 Nystatin (Nystatin Susp) 5 ml BID GTB Last administered on 03/30/17 08:54; Admin Dose 5 ML; Start 03/22/17 at 22:00 Oxycodone HCl (Roxicodone) 5 mg Q4H PRN GTB PAIN; Start 03/22/17 at 18:00 Polyethylene Glycol (Miralax) 17 gm DAILY GTB Last administered on 03/26/17 09 :54; Admin Dose 17 GM; Start 03/23/17 at 09:00 Prochlorperazine (Compazine Inj) 5 mg Q6H PRN IM NAUSEA AND/OR VOMITING; Start 03/22/17 at 18:00 Simethicone (Mylicon) 80 mg Q6H PRN PEG DISTENSION/GAS/BLOATING; Start at 18:00 Spironolactone (Aldactone) 25 mg DAILY GTB Last administered on 03/30/17 08:54 ; Admin Dose 25 MG; Start 03/23/17 at 09:00 Topiramate (Topamax) 25 mg BID GTB Last administered on 03/30/17 08:55; Admin Dose 25 MG; Start 03/22/17 at 21:00 Multivitamins (Thera-Plus) 5 ml DAILY GTB Last administered on 03/30/17 08:54 ; Admin Dose 5 ML; Start 03/23/17 at 09:00 Psyllium Hydrophilic Mucilloid (Metamucil (Sugar Free)) 1 pkt BID GTB Last administered on 03/26/17 09:54; Admin Dose 1 PKT; Start 03/22/17 at 22:00 Propranolol HCl (Inderal) 60 mg Q6 GTB Last administered on 03/30/17 05:15; Admin Dose 60 MG; Start 03/22/17 at 22:00 Ibuprofen (Motrin) 400 mg ONCE PRN PO PAIN OR TEMP ABOVE 38C Last administered on 03/25/17 03:28; Admin Dose 400 MG; Start 03/25/17 at 02:00 Acetaminophen (Tylenol Liquid) 325 mg Q6 GTB Last administered on 03/30/17 12: 17; Admin Dose 325 MG; Start 03/26/17 at 18:00 JAMAR MOSCOSO MD March 30, 2017 13:37
--- NOTE | 2017-03-30 13:50 | CONS ---
Date/Time of Note Date/Time of Note DATE: 03/30/17 TIME: 13:47 Assessment/Plan Assessment/Plan Chief Complaint/Hosp Course SUBJECTIVE: No acute events overnight, continues to spike fevers INDWELLINGS: Trach, PEG, [place]. PHYSICAL EXAMINATION: GENERAL: This is a chronically ill-appearing, young man, who is lying comfortably in bed. HEENT: He has a craniectomy noted. Buccal mucosa dry. NECK: Supple. Tracheostomy present. CHEST: Chest rise is symmetrical. Breath sounds diminished to the bases. HEART: S1, S2. ABDOMEN: Soft, bowel tones present. EXTREMITIES: Without cyanosis. ASSESSMENT: 1. Persistent fevers, possibly central===> all cx neg, procalcitonin level 0.1 2 Persistent vegetative state, status post intracranial hemorrhage. 3. Chronic respiratory failure and dysphagia. 4. History of substance abuse in the past. 5. SARAI + colonized sputum PLAN: The patient remains unchanged. Off abx. Supportive care/cooling measures DW staff Problems: Consultation Date/Type/Reason Admit Date/Time March 22, 2017 at 14:56 Type of Consultation: id Exam/Review of Systems Vital Signs Vitals Vital Signs Date Time Temp Pulse Resp B/P Pulse Ox O2 Delivery O2 Flow Rate FiO2 03/30/17 12:25 114 03/30/17 12:16 99.0 18 109/70 98 03/30/17 08:00 5.0 03/30/17 01:31 28 03/29/17 20:20 Aerosol Intake and Output 03/29/17 03/29/17 03/30/17 15:00 23:00 07:00 Intake Total 1630 ml 850 ml Output Total 700 ml 1600 ml Balance 930 ml -750 ml Results Result Diagram: 03/30/17 0711 03/30/17 0711 Results 24 hrs Laboratory Tests Test 03/30/17 07:11 White Blood Count 8.8 Red Blood Count 4.50 L Hemoglobin 13.1 L Hematocrit 40.7 L Mean Corpuscular Volume 90.4 Mean Corpuscular Hemoglobin 29.1 Mean Corpuscular Hemoglobin Concent 32.2 Red Cell Distribution Width 14.8 H Platelet Count 351 Mean Platelet Volume 10.6 H Neutrophils % 68.1 Lymphocytes % 17.4 Monocytes % 10.0 Eosinophils % 3.4 Basophils % 0.5 Nucleated Red Blood Cells % 0.0 Neutrophils # 6.0 Lymphocytes # 1.5 Monocytes # 0.9 Eosinophils # 0.3 Basophils # 0.0 Nucleated Red Blood Cells # 0.0 Sodium Level 140 Potassium Level 4.7 Chloride Level 111 H Carbon Dioxide Level 19 L Anion Gap 15 Blood Urea Nitrogen 19 Creatinine 0.64 Glucose Level 113 Calcium Level 9.4 Medications Medications Current Medications Ondansetron HCl (Zofran Inj) 4 mg Q6H PRN IV NAUSEA AND/OR VOMITING Last administered on 03/24/17 06:07; Admin Dose 4 MG; Start 03/22/17 at 18:00 Acetaminophen (Tylenol Liquid) 500 mg Q6H PRN GTB PAIN AND OR ELEVATED TEMP Last administered on 03/25/17 09:20; Admin Dose 500 MG; Start 03/22/17 at 18:00 Amlodipine Besylate (Norvasc) 5 mg DAILY GTB Last administered on 03/27/17 08: 06; Admin Dose 5 MG; Start 03/23/17 at 09:00 Apixaban (Eliquis) 5 mg BID GTB Last administered on 03/30/17 08:55; Admin Dose 5 MG; Start 03/22/17 at 21:00 Baclofen (Lioresal) 10 mg BID PRN GTB MUSCLE SPASMS; Start 03/22/17 at 18:00 Chlorhexidine Gluconate (Peridex) 15 ml Q12 MM Last administered on 03/30/17 09:04; Admin Dose 15 ML; Start 03/22/17 at 21:00 Docusate Sodium (Colace Liquid Cup) 100 mg BID GTB Last administered on 22:26; Admin Dose 100 MG; Start 03/22/17 at 21:00 Hydralazine HCl (Apresoline) 25 mg Q8 PRN GTB SBP>170; Start 03/22/17 at 18:00 Lactobacillus Acidophilus/ Rhamnosus (Culturelle) 1 cap DAILY GTB Last administered on 03/30/17 08:55; Admin Dose 1 CAP; Start 03/23/17 at 09:00 Lactulose (Enulose) 20 gm BID GTB Last administered on 03/26/17 09:54; Admin Dose 20 GM; Start 03/22/17 at 21:00 Lansoprazole (Prevacid) 30 mg DAILY@06 GTB Last administered on 03/30/17 05:15 ; Admin Dose 30 MG; Start 03/23/17 at 06:00 Levetiracetam (Keppra Liquid) 2,000 mg BID GTB Last administered on 03/30/17 08:54; Admin Dose 2,000 MG; Start 03/22/17 at 21:00 Lisinopril (Zestril) 20 mg DAILY GTB Last administered on 03/30/17 08:55; Admin Dose 20 MG; Start 03/22/17 at 22:00 Magnesium Hydroxide (Milk Of Mag) 30 ml DAILY GTB Last administered on 09:54; Admin Dose 30 ML; Start 03/23/17 at 09:00 Sodium Biphosphate/ Sodium Phosphate (Fleet Enema) 133 ml DAILY PRN [place] CONSTIPATION; Start 03/22/17 at 18:00 Nitroglycerin (Nitroglycerin 2% Oint) 1 inch Q6H PRN TD CHEST PAIN Last administered on 03/22/17 22:56; Admin Dose 1 INCH; Start 03/22/17 at 18:00 Nystatin (Nystatin Susp) 5 ml BID GTB Last administered on 03/30/17 08:54; Admin Dose 5 ML; Start 03/22/17 at 22:00 Oxycodone HCl (Roxicodone) 5 mg Q4H PRN GTB PAIN; Start 03/22/17 at 18:00 Polyethylene Glycol (Miralax) 17 gm DAILY GTB Last administered on 03/26/17 09 :54; Admin Dose 17 GM; Start 03/23/17 at 09:00 Prochlorperazine (Compazine Inj) 5 mg Q6H PRN IM NAUSEA AND/OR VOMITING; Start 03/22/17 at 18:00 Simethicone (Mylicon) 80 mg Q6H PRN PEG DISTENSION/GAS/BLOATING; Start at 18:00 Spironolactone (Aldactone) 25 mg DAILY GTB Last administered on 03/30/17 08:54 ; Admin Dose 25 MG; Start 03/23/17 at 09:00 Topiramate (Topamax) 25 mg BID GTB Last administered on 03/30/17 08:55; Admin Dose 25 MG; Start 03/22/17 at 21:00 Multivitamins (Thera-Plus) 5 ml DAILY GTB Last administered on 03/30/17 08:54 ; Admin Dose 5 ML; Start 03/23/17 at 09:00 Psyllium Hydrophilic Mucilloid (Metamucil (Sugar Free)) 1 pkt BID GTB Last administered on 03/26/17 09:54; Admin Dose 1 PKT; Start 03/22/17 at 22:00 Propranolol HCl (Inderal) 60 mg Q6 GTB Last administered on 03/30/17 05:15; Admin Dose 60 MG; Start 03/22/17 at 22:00 Ibuprofen (Motrin) 400 mg ONCE PRN PO PAIN OR TEMP ABOVE 38C Last administered on 03/25/17 03:28; Admin Dose 400 MG; Start 03/25/17 at 02:00 Acetaminophen (Tylenol Liquid) 325 mg Q6 GTB Last administered on 03/30/17 12: 17; Admin Dose 325 MG; Start 03/26/17 at 18:00 KATI DONOVAN NP March 30, 2017 13:50
--- NOTE | 2017-03-30 16:36 | PN ---
DATE: 03/30/2017 SUBJECTIVE: Urinary hematuria. The patient himself is not capable of giving any history. He is not verbal. His mother is at his bedside and the mother's says that his urine now is clear, in fact, he does have a Crescencio catheter and the urine draining through that is clear urine. OBJECTIVE: VITAL SIGNS: His temperature is 99.0, blood pressure 109/70, pulse is 114, respirations 18. The ur ine culture showed no growth at 48 hours. LABORATORY: CBC shows a white count of 8.8, hemoglobin 13.1, hematocrit 40.7. BUN is 19, creatinine 0.64. Electrolytes are normal. IMPRESSION: Most likely the hematuria that he had was from traumatic from attempts to catheterize h im. PLAN: Watch him and monitor the color of his urine. So far the urine has cleared and is not . Dictated By: GERARDO CHE/MAKAYLA Conf#: [id number] DID#: [id number]
[2017-03-30] MEDS: ACETAMINOPHEN 650MG/20.3ML CUP GTB PRN (20:27)
[2017-03-30] MEDS: IBUPROFEN 200 MG TAB PO PRN (22:00)
[2017-03-31] VITALS (13 sets, daily range): BP systolic 106–133; BP diastolic 54–72; PULSE 82–120; RESP 16–20
[2017-03-31] MEDS: ACETAMINOPHEN 650MG/20.3ML CUP GTB SCH ×4 (02:01→17:43)
[2017-03-31] MEDS: PROPRANOLOL 40 MG TAB GTB SCH ×4 (02:02→17:43)
[2017-03-31] MEDS: LANSOPRAZOLE 30 MG CAP GTB SCH (06:21)
[2017-03-31] MEDS: LACTULOSE 30ML CUP GTB SCH ×2 (09:00→21:00)
[2017-03-31] MEDS: AMLODIPINE 5 MG TAB GTB SCH (09:00)
[2017-03-31] MEDS: PSYLLIUM (SUGAR FREE) PACKET GTB SCH ×2 (09:00→21:00)
[2017-03-31] MEDS: MAGNESIUM HYDROXIDE 30ML CUP GTB SCH (09:00)
[2017-03-31] MEDS: DOCUSATE SODIUM 10 MG/ML (10ML CUP) GTB SCH ×2 (09:00→21:00)
[2017-03-31] MEDS: POLYETHYLENE GLYCOL 17 GM PACKET GTB SCH (09:00)
[2017-03-31] MEDS: LISINOPRIL 20 MG TAB GTB SCH (09:34)
[2017-03-31] MEDS: APIXABAN 5 MG TABLET GTB SCH ×2 (09:35→21:12)
[2017-03-31] MEDS: TOPIRAMATE 25 MG TAB GTB SCH ×2 (09:36→21:12)
[2017-03-31] MEDS: SPIRONOLACTONE 25 MG TAB GTB SCH (09:36)
[2017-03-31] MEDS: MULTIVITAMINS 5 ML CUP GTB SCH (09:37)
[2017-03-31] MEDS: NYSTATIN SUSP 5 ML CUP GTB SCH ×2 (09:38→21:12)
[2017-03-31] MEDS: CHLORHEXIDINE GLUCONATE 15 ML UD CUP MM SCH ×2 (09:38→21:12)
[2017-03-31] MEDS: LEVETIRACETAM (100 MG/ML) 5ML CUP GTB SCH ×2 (10:04→21:13)
--- NOTE | 2017-03-31 10:42 | CONS ---
Date/Time of Note Date/Time of Note DATE: 03/31/17 TIME: 10:40 Assessment/Plan Assessment/Plan Additional Assessment/Plan Assessment recommendations; 1. 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 According to the patient's mother this has been a persistent issue ever since the patient sustained brain injury and has been extensively worked up at various hospitals. 2. Hypertension. 3. Stable seizure disorder. 4. Currently there is no evidence of any infective process. Continue current supportive care. Patient can be discharged. Consultation Date/Type/Reason Admit Date/Time March 22, 2017 at 14:56 Type of Consultation: Pulmonary/critical care 24 HR Interval Summary Free Text/Dictation Patient condition is stable. Has remained hemodynamically stable although still spiking low-grade fevers. Next General exam; young male, on T piece via tracheostomy, currently in no distress , patient in persistent vegetative state due to severe anoxic brain injury. Exam/Review of Systems Vital Signs Vitals Vital Signs Date Time Temp Pulse Resp B/P Pulse Ox O2 Delivery O2 Flow Rate FiO2 03/31/17 09:33 112 97 28 03/31/17 07:24 100.7 19 113/60 03/31/17 01:18 5.0 03/29/17 20:20 Aerosol Intake and Output 03/30/17 03/30/17 03/31/17 15:00 23:00 07:00 Intake Total 1760 ml 1280 ml Output Total 800 ml 400 ml Balance 960 ml 880 ml Exam HEENT exam is; supple neck, no JVD. No lymphadenopathy. Midline trachea. No thyromegaly. Tracheostomy in place with clean insertion site. Chest examination; clear to ulceration. S1-S2 audible, no murmurs. Regular rhythm. Abdomen examination; soft, G-tube in place. No organomegaly. Bowel sounds audible. Extremity examination of Junior no peripheral edema. SENIOR PAINTER examination; patient in persistent vegetative state. Results Result Diagram: 03/30/1771003/30/17710 Medications Medications Current Medications Ondansetron HCl (Zofran Inj) 4 mg Q6H PRN IV NAUSEA AND/OR VOMITING Last administered on 03/24/17t 06:07; Admin Dose 4 MG; Start 03/22/17 at 18:00 Acetaminophen (Tylenol Liquid) 500 mg Q6H PRN GTB PAIN AND OR ELEVATED TEMP Last administered on 03/30/17 20:27; Admin Dose 500 MG; Start 03/22/17 at 18:00 Amlodipine Besylate (Norvasc) 5 mg DAILY GTB Last administered on 03/27/17 08: 06; Admin Dose 5 MG; Start 03/23/17 at 09:00 Apixaban (Eliquis) 5 mg BID GTB Last administered on 03/31/17 09:35; Admin Dose 5 MG; Start 03/22/17 at 21:00 Baclofen (Lioresal) 10 mg BID PRN GTB MUSCLE SPASMS; Start 03/22/17 at 18:00 Chlorhexidine Gluconate (Peridex) 15 ml Q12 MM Last administered on 03/31/17 09:38; Admin Dose 15 ML; Start 03/22/17 at 21:00 Docusate Sodium (Colace Liquid Cup) 100 mg BID GTB Last administered on 22:26; Admin Dose 100 MG; Start 03/22/17 at 21:00 Hydralazine HCl (Apresoline) 25 mg Q8 PRN GTB SBP>170; Start 03/22/17 at 18:00 Lactobacillus Acidophilus/ Rhamnosus (Culturelle) 1 cap DAILY GTB Last administered on 03/30/17 08:55; Admin Dose 1 CAP; Start 03/23/17 at 09:00 Lactulose (Enulose) 20 gm BID GTB Last administered on 03/26/17 09:54; Admin Dose 20 GM; Start 03/22/17 at 21:00 Lansoprazole (Prevacid) 30 mg DAILY@06 GTB Last administered on 03/31/17 06:21 ; Admin Dose 30 MG; Start 03/23/17 at 06:00 Levetiracetam (Keppra Liquid) 2,000 mg BID GTB Last administered on 03/31/17 10:04; Admin Dose 2,000 MG; Start 03/22/17 at 21:00 Lisinopril (Zestril) 20 mg DAILY GTB Last administered on 03/31/17 09:34; Admin Dose 20 MG; Start 03/22/17 at 22:00 Magnesium Hydroxide (Milk Of Mag) 30 ml DAILY GTB Last administered on 09:54; Admin Dose 30 ML; Start 03/23/17 at 09:00 Sodium Biphosphate/ Sodium Phosphate (Fleet Enema) 133 ml DAILY PRN [place] CONSTIPATION; Start 03/22/17 at 18:00 Nitroglycerin (Nitroglycerin 2% Oint) 1 inch Q6H PRN TD CHEST PAIN Last administered on 03/22/17 22:56; Admin Dose 1 INCH; Start 03/22/17 at 18:00 Nystatin (Nystatin Susp) 5 ml BID GTB Last administered on 03/31/17 09:38; Admin Dose 5 ML; Start 03/22/17 at 22:00 Oxycodone HCl (Roxicodone) 5 mg Q4H PRN GTB PAIN; Start 03/22/17 at 18:00 Polyethylene Glycol (Miralax) 17 gm DAILY GTB Last administered on 03/26/17 09 :54; Admin Dose 17 GM; Start 03/23/17 at 09:00 Prochlorperazine (Compazine Inj) 5 mg Q6H PRN IM NAUSEA AND/OR VOMITING; Start 03/22/17 at 18:00 Simethicone (Mylicon) 80 mg Q6H PRN PEG DISTENSION/GAS/BLOATING; Start at 18:00 Spironolactone (Aldactone) 25 mg DAILY GTB Last administered on 03/31/17 09:36 ; Admin Dose 25 MG; Start 03/23/17 at 09:00 Topiramate (Topamax) 25 mg BID GTB Last administered on 03/31/17 09:36; Admin Dose 25 MG; Start 03/22/17 at 21:00 Multivitamins (Thera-Plus) 5 ml DAILY GTB Last administered on 03/31/17 09:37 ; Admin Dose 5 ML; Start 03/23/17 at 09:00 Psyllium Hydrophilic Mucilloid (Metamucil (Sugar Free)) 1 pkt BID GTB Last administered on 03/26/17 09:54; Admin Dose 1 PKT; Start 03/22/17 at 22:00 Propranolol HCl (Inderal) 60 mg Q6 GTB Last administered on 03/31/17 02:02; Admin Dose 60 MG; Start 03/22/17 at 22:00 Ibuprofen (Motrin) 400 mg ONCE PRN PO PAIN OR TEMP ABOVE 38C Last administered on 03/30/17 22:00; Admin Dose 400 MG; Start 03/25/17 at 02:00 Acetaminophen (Tylenol Liquid) 325 mg Q6 GTB Last administered on 03/31/17 06: 21; Admin Dose 325 MG; Start 03/26/17 at 18:00 MARQUITA GRACIA March 31, 2017 10:42
[2017-03-31] MEDS: LACTOBACILLUS RHAMNOSUS CAP GTB SCH (11:29)
--- NOTE | 2017-03-31 14:20 | PN ---
Date/Time of Note Date/Time of Note DATE: 03/31/17 TIME: 14:16 Assessment/Plan VTE Prophylaxis VTE Prophylaxis Intervention: other Lines/Catheters IV Catheter Type (from [facility] Mid Line Urinary Cath still in place: No (condom cath) Reason Cath still needed: other (indicate) Assessment/Plan Assessment/Plan 1. Fever, central from brain injury versus intermittent aspiration and lung atelectasis, either does not need antibiotics for specific treatment other than symptomatic management. I discussed this with the mother today. mother does not want to have WBC scan. Patient can be discharged when bed is available. 2. Anoxic encephalopathy with chronic debility status post percutaneous endoscopic gastrostomy and tracheostomy as well as craniectomy, supportive care 3. Hypertension-stable 4. History of substance abuse in the past 5. Prophylaxis: eliquis Subjective 24 Hr Interval Summary Free Text/Dictation fever. alert. no distress Exam/Review of Systems Vital Signs Vitals Vital Signs Date Time Temp Pulse Resp B/P Pulse Ox O2 Delivery O2 Flow Rate FiO2 03/31/17 12:42 110 03/31/17 11:40 102.6 20 117/54 98 03/31/17 11:15 28 03/31/17 08:30 5.0 03/29/17 20:20 Aerosol Intake and Output 03/30/17 03/30/17 03/31/17 15:00 23:00 07:00 Intake Total 1760 ml 1280 ml Output Total 800 ml 400 ml Balance 960 ml 880 ml Exam Constitutional: alert, non-verbal Head: atraumatic, normocephalic Eyes: EOMI, PERRL, nl conjunctiva, nl lids ENMT: nl external ears & nose, nl lips & teeth, nl nasal mucosa & septum Neck: non-tender, supple Respiratory: clear to auscultation, normal air movement, No congested cough, No crackles/rales, No diminished breath sounds, No intercostal retraction, No labored breathing, No other, No respirations, No tactile fremitus, No wheezing Cardiovascular: nl pulses, regular rate and rhythm, No S3, No S4, No bruits, No diastolic murmur, No edema, No gallop, No irregular rhythm, No jugular venous distention (JVD), No murmurs/extra sounds, No other, No rub, No systolic murmur Gastrointestinal: nl liver, spleen, non-tender, soft, No ascites, No bowel sounds, No distended, No firm, No hepatomegaly, No mass , No other, No rebound or guarding, No splenomegaly, No surgical scars, No tender Musculoskeletal: nl extremities to inspection Extremities: normal pulses, No calf tenderness, No clubbing, No cyanosis, No edema, No other, No palpable cord, No pitting pedal edema, No tenderness Neurological: confused Results Result Diagram: 03/30/17 0711 03/30/17 0711 Medications Medications Current Medications Ondansetron HCl (Zofran Inj) 4 mg Q6H PRN IV NAUSEA AND/OR VOMITING Last administered on 03/24/17 06:07; Admin Dose 4 MG; Start 03/22/17 at 18:00 Acetaminophen (Tylenol Liquid) 500 mg Q6H PRN GTB PAIN AND OR ELEVATED TEMP Last administered on 03/30/17 20:27; Admin Dose 500 MG; Start 03/22/17 at 18:00 Amlodipine Besylate (Norvasc) 5 mg DAILY GTB Last administered on 03/27/17 08: 06; Admin Dose 5 MG; Start 03/23/17 at 09:00 Apixaban (Eliquis) 5 mg BID GTB Last administered on 03/31/17 09:35; Admin Dose 5 MG; Start 03/22/17 at 21:00 Baclofen (Lioresal) 10 mg BID PRN GTB MUSCLE SPASMS; Start 03/22/17 at 18:00 Chlorhexidine Gluconate (Peridex) 15 ml Q12 MM Last administered on 03/31/17 09:38; Admin Dose 15 ML; Start 03/22/17 at 21:00 Docusate Sodium (Colace Liquid Cup) 100 mg BID GTB Last administered on 22:26; Admin Dose 100 MG; Start 03/22/17 at 21:00 Hydralazine HCl (Apresoline) 25 mg Q8 PRN GTB SBP>170; Start 03/22/17 at 18:00 Lactobacillus Acidophilus/ Rhamnosus (Culturelle) 1 cap DAILY GTB Last administered on 03/31/17 11:29; Admin Dose 1 CAP; Start 03/23/17 at 09:00 Lactulose (Enulose) 20 gm BID GTB Last administered on 03/26/17 09:54; Admin Dose 20 GM; Start 03/22/17 at 21:00 Lansoprazole (Prevacid) 30 mg DAILY@06 GTB Last administered on 03/31/17 06:21 ; Admin Dose 30 MG; Start 03/23/17 at 06:00 Levetiracetam (Keppra Liquid) 2,000 mg BID GTB Last administered on 03/31/17 10:04; Admin Dose 2,000 MG; Start 03/22/17 at 21:00 Lisinopril (Zestril) 20 mg DAILY GTB Last administered on 03/31/17 09:34; Admin Dose 20 MG; Start 03/22/17 at 22:00 Magnesium Hydroxide (Milk Of Mag) 30 ml DAILY GTB Last administered on 09:54; Admin Dose 30 ML; Start 03/23/17 at 09:00 Sodium Biphosphate/ Sodium Phosphate (Fleet Enema) 133 ml DAILY PRN [place] CONSTIPATION; Start 03/22/17 at 18:00 Nitroglycerin (Nitroglycerin 2% Oint) 1 inch Q6H PRN TD CHEST PAIN Last administered on 03/22/17 22:56; Admin Dose 1 INCH; Start 03/22/17 at 18:00 Nystatin (Nystatin Susp) 5 ml BID GTB Last administered on 03/31/17 09:38; Admin Dose 5 ML; Start 03/22/17 at 22:00 Oxycodone HCl (Roxicodone) 5 mg Q4H PRN GTB PAIN; Start 03/22/17 at 18:00 Polyethylene Glycol (Miralax) 17 gm DAILY GTB Last administered on 03/26/17 09 :54; Admin Dose 17 GM; Start 03/23/17 at 09:00 Prochlorperazine (Compazine Inj) 5 mg Q6H PRN IM NAUSEA AND/OR VOMITING; Start 03/22/17 at 18:00 Simethicone (Mylicon) 80 mg Q6H PRN PEG DISTENSION/GAS/BLOATING; Start at 18:00 Spironolactone (Aldactone) 25 mg DAILY GTB Last administered on 03/31/17 09:36 ; Admin Dose 25 MG; Start 03/23/17 at 09:00 Topiramate (Topamax) 25 mg BID GTB Last administered on 03/31/17 09:36; Admin Dose 25 MG; Start 03/22/17 at 21:00 Multivitamins (Thera-Plus) 5 ml DAILY GTB Last administered on 03/31/17 09:37 ; Admin Dose 5 ML; Start 03/23/17 at 09:00 Psyllium Hydrophilic Mucilloid (Metamucil (Sugar Free)) 1 pkt BID GTB Last administered on 03/26/17 09:54; Admin Dose 1 PKT; Start 03/22/17 at 22:00 Propranolol HCl (Inderal) 60 mg Q6 GTB Last administered on 03/31/17 11:32; Admin Dose 60 MG; Start 03/22/17 at 22:00 Ibuprofen (Motrin) 400 mg ONCE PRN PO PAIN OR TEMP ABOVE 38C Last administered on 03/30/17 22:00; Admin Dose 400 MG; Start 03/25/17 at 02:00 Acetaminophen (Tylenol Liquid) 325 mg Q6 GTB Last administered on 03/31/17 11: 30; Admin Dose 325 MG; Start 03/26/17 at 18:00 JAMAR MOSCOSO MD March 31, 2017 14:20
--- NOTE | 2017-03-31 18:31 | CONS ---
Date/Time of Note Date/Time of Note DATE: 03/31/17 TIME: 18:30 Assessment/Plan Assessment/Plan Chief Complaint/Hosp Course SUBJECTIVE: No acute events overnight, looks comfortable INDWELLINGS: Trach, PEG, [place]. PHYSICAL EXAMINATION: GENERAL: This is a chronically ill-appearing, young man, who is lying comfortably in bed. HEENT: He has a craniectomy noted. Buccal mucosa dry. NECK: Supple. Tracheostomy present. CHEST: Chest rise is symmetrical. Breath sounds diminished to the bases. HEART: S1, S2. ABDOMEN: Soft, bowel tones present. EXTREMITIES: Without cyanosis. ASSESSMENT: 1. Persistent fevers, likely central===> all cx neg, procalcitonin level 0.1 2 Persistent vegetative state, status post intracranial hemorrhage. 3. Chronic respiratory failure and dysphagia. 4. History of substance abuse in the past. 5. SARAI + colonized sputum PLAN: The patient remains unchanged. Will keep ff abx. Continue supportive care /cooling measures, no acute infectious pulmonary process per pulmonary DW staff Problems: Consultation Date/Type/Reason Admit Date/Time March 22, 2017 at 14:56 Type of Consultation: ID Exam/Review of Systems Vital Signs Vitals Vital Signs Date Time Temp Pulse Resp B/P Pulse Ox O2 Delivery O2 Flow Rate FiO2 03/31/17 17:42 5.0 28 03/31/17 17:39 117 97 Aerosol T Tube 03/31/17 15:55 101.4 19 130/72 Intake and Output 03/30/17 03/30/17 03/31/17 15:00 23:00 07:00 Intake Total 1760 ml 1280 ml Output Total 800 ml 400 ml Balance 960 ml 880 ml Results Result Diagram: 03/30/17 0711 03/30/17 0711 Medications Medications Current Medications Ondansetron HCl (Zofran Inj) 4 mg Q6H PRN IV NAUSEA AND/OR VOMITING Last administered on 03/24/17 06:07; Admin Dose 4 MG; Start 03/22/17 at 18:00 Acetaminophen (Tylenol Liquid) 500 mg Q6H PRN GTB PAIN AND OR ELEVATED TEMP Last administered on 03/30/17 20:27; Admin Dose 500 MG; Start 03/22/17 at 18:00 Amlodipine Besylate (Norvasc) 5 mg DAILY GTB Last administered on 03/27/17 08: 06; Admin Dose 5 MG; Start 03/23/17 at 09:00 Apixaban (Eliquis) 5 mg BID GTB Last administered on 03/31/17 09:35; Admin Dose 5 MG; Start 03/22/17 at 21:00 Baclofen (Lioresal) 10 mg BID PRN GTB MUSCLE SPASMS; Start 03/22/17 at 18:00 Chlorhexidine Gluconate (Peridex) 15 ml Q12 MM Last administered on 03/31/17 09:38; Admin Dose 15 ML; Start 03/22/17 at 21:00 Docusate Sodium (Colace Liquid Cup) 100 mg BID GTB Last administered on 22:26; Admin Dose 100 MG; Start 03/22/17 at 21:00 Hydralazine HCl (Apresoline) 25 mg Q8 PRN GTB SBP>170; Start 03/22/17 at 18:00 Lactobacillus Acidophilus/ Rhamnosus (Culturelle) 1 cap DAILY GTB Last administered on 03/31/17 11:29; Admin Dose 1 CAP; Start 03/23/17 at 09:00 Lactulose (Enulose) 20 gm BID GTB Last administered on 03/26/17 09:54; Admin Dose 20 GM; Start 03/22/17 at 21:00 Lansoprazole (Prevacid) 30 mg DAILY@06 GTB Last administered on 03/31/17 06:21 ; Admin Dose 30 MG; Start 03/23/17 at 06:00 Levetiracetam (Keppra Liquid) 2,000 mg BID GTB Last administered on 03/31/17 10:04; Admin Dose 2,000 MG; Start 03/22/17 at 21:00 Lisinopril (Zestril) 20 mg DAILY GTB Last administered on 03/31/17 09:34; Admin Dose 20 MG; Start 03/22/17 at 22:00 Magnesium Hydroxide (Milk Of Mag) 30 ml DAILY GTB Last administered on 09:54; Admin Dose 30 ML; Start 03/23/17 at 09:00 Sodium Biphosphate/ Sodium Phosphate (Fleet Enema) 133 ml DAILY PRN [place] CONSTIPATION; Start 03/22/17 at 18:00 Nitroglycerin (Nitroglycerin 2% Oint) 1 inch Q6H PRN TD CHEST PAIN Last administered on 03/22/17 22:56; Admin Dose 1 INCH; Start 03/22/17 at 18:00 Nystatin (Nystatin Susp) 5 ml BID GTB Last administered on 03/31/17 09:38; Admin Dose 5 ML; Start 03/22/17 at 22:00 Oxycodone HCl (Roxicodone) 5 mg Q4H PRN GTB PAIN; Start 03/22/17 at 18:00 Polyethylene Glycol (Miralax) 17 gm DAILY GTB Last administered on 03/26/17 09 :54; Admin Dose 17 GM; Start 03/23/17 at 09:00 Prochlorperazine (Compazine Inj) 5 mg Q6H PRN IM NAUSEA AND/OR VOMITING; Start 03/22/17 at 18:00 Simethicone (Mylicon) 80 mg Q6H PRN PEG DISTENSION/GAS/BLOATING; Start at 18:00 Spironolactone (Aldactone) 25 mg DAILY GTB Last administered on 03/31/17 09:36 ; Admin Dose 25 MG; Start 03/23/17 at 09:00 Topiramate (Topamax) 25 mg BID GTB Last administered on 03/31/17 09:36; Admin Dose 25 MG; Start 03/22/17 at 21:00 Multivitamins (Thera-Plus) 5 ml DAILY GTB Last administered on 03/31/17 09:37 ; Admin Dose 5 ML; Start 03/23/17 at 09:00 Psyllium Hydrophilic Mucilloid (Metamucil (Sugar Free)) 1 pkt BID GTB Last administered on 03/26/17 09:54; Admin Dose 1 PKT; Start 03/22/17 at 22:00 Propranolol HCl (Inderal) 60 mg Q6 GTB Last administered on 03/31/17 17:43; Admin Dose 60 MG; Start 03/22/17 at 22:00 Ibuprofen (Motrin) 400 mg ONCE PRN PO PAIN OR TEMP ABOVE 38C Last administered on 03/30/17 22:00; Admin Dose 400 MG; Start 03/25/17 at 02:00 Acetaminophen (Tylenol Liquid) 325 mg Q6 GTB Last administered on 03/31/17t 17: 43; Admin Dose 325 MG; Start 03/26/17 at 18:00 KATI DONOVAN NP March 31, 2017 18:31
[2017-04-01] VITALS (12 sets, daily range): BP systolic 105–130; BP diastolic 55–72; PULSE 99–132; RESP 18–20
[2017-04-01] MEDS: ACETAMINOPHEN 650MG/20.3ML CUP GTB SCH ×4 (00:13→17:53)
[2017-04-01] MEDS: PROPRANOLOL 40 MG TAB GTB SCH ×4 (00:13→17:53)
[2017-04-01] MEDS: LANSOPRAZOLE 30 MG CAP GTB SCH (05:29)
[2017-04-01] MEDS: AMLODIPINE 5 MG TAB GTB SCH (09:00)
[2017-04-01] MEDS: MULTIVITAMINS 5 ML CUP GTB SCH (09:27)
[2017-04-01] MEDS: CHLORHEXIDINE GLUCONATE 15 ML UD CUP MM SCH ×2 (09:27→20:05)
[2017-04-01] MEDS: MAGNESIUM HYDROXIDE 30ML CUP GTB SCH (09:27)
[2017-04-01] MEDS: DOCUSATE SODIUM 10 MG/ML (10ML CUP) GTB SCH (09:27)
[2017-04-01] MEDS: LACTULOSE 30ML CUP GTB SCH (09:27)
[2017-04-01] MEDS: POLYETHYLENE GLYCOL 17 GM PACKET GTB SCH (09:27)
[2017-04-01] MEDS: LEVETIRACETAM (100 MG/ML) 5ML CUP GTB SCH ×2 (09:28→20:02)
[2017-04-01] MEDS: SPIRONOLACTONE 25 MG TAB GTB SCH (09:28)
[2017-04-01] MEDS: LACTOBACILLUS RHAMNOSUS CAP GTB SCH (09:28)
[2017-04-01] MEDS: NYSTATIN SUSP 5 ML CUP GTB SCH ×2 (09:28→20:02)
[2017-04-01] MEDS: TOPIRAMATE 25 MG TAB GTB SCH ×2 (09:28→20:05)
[2017-04-01] MEDS: APIXABAN 5 MG TABLET GTB SCH ×2 (09:28→20:02)
[2017-04-01] MEDS: PSYLLIUM (SUGAR FREE) PACKET GTB SCH (09:29)
[2017-04-01] MEDS: LISINOPRIL 20 MG TAB GTB SCH (09:30)
--- NOTE | 2017-04-01 12:33 | CONS ---
Date/Time of Note Date/Time of Note DATE: 04/01/17 TIME: 12:31 Assessment/Plan Assessment/Plan Additional Assessment/Plan Assessment recommendations; 1. Patient admitted for low-grade fever which has been an ongoing symptom for the last several months ever since the patient has had his anoxic brain injury. According to patient's mother patient has been extensively worked up at [facility] and various other medical centers without any etiology being discovered. 2. Persistent vegetative state. 3. Hypertension. 4. Stable seizure disorder. Venogram treatment. Patient scheduled for white cell body scan. I did have a detailed discussion with the patient's mother at bedside and answered all her questions. Consultation Date/Type/Reason Admit Date/Time March 22, 2017 at 14:56 Type of Consultation: Pulmonary 24 HR Interval Summary Free Text/Dictation Patient condition stable. Has remained hemodynamically stable. Still having fever spikes off and on. No overt seizure activity noted. General exam; young male, unresponsive due to anoxic brain injury maintained on tracheal T piece. Exam/Review of Systems Vital Signs Vitals Vital Signs Date Time Temp Pulse Resp B/P Pulse Ox O2 Delivery O2 Flow Rate FiO2 04/01/17 12:16 118 04/01/17 11:42 101.0 20 129/72 98 04/01/17 01:08 5.0 28 03/31/17 17:39 Aerosol T Tube Intake and Output 03/31/17 03/31/17 04/01/17 15:00 23:00 07:00 Intake Total 1060 ml 1360 ml Output Total 800 ml 650 ml Balance 260 ml 710 ml Exam HEENT exam is; supple neck, no JVD. No lymphadenopathy. Midline trachea. No thyromegaly. Tracheostomy in place with clean insertion site. Chest examination; clear to auscultation. S1-S2 audible, no murmurs. Regular rhythm. Abdomen examination; soft, nondistended. No organomegaly. Bowel sounds audible. G-tube in place. Extremity examination; no peripheral edema. [employer] examination; patient remains unresponsive. Results Result Diagram: 03/30/1711 03/30/17710 Medications Medications Current Medications Ondansetron HCl (Zofran Inj) 4 mg Q6H PRN IV NAUSEA AND/OR VOMITING Last administered on 03/24/17t 06:07; Admin Dose 4 MG; Start 03/22/17 at 18:00 Acetaminophen (Tylenol Liquid) 500 mg Q6H PRN GTB PAIN AND OR ELEVATED TEMP Last administered on 03/30/17 20:27; Admin Dose 500 MG; Start 03/22/17 at 18:00 Amlodipine Besylate (Norvasc) 5 mg DAILY GTB Last administered on 03/27/17 08: 06; Admin Dose 5 MG; Start 03/23/17 at 09:00 Apixaban (Eliquis) 5 mg BID GTB Last administered on 04/01/17 09:28; Admin Dose 5 MG; Start 03/22/17 at 21:00 Baclofen (Lioresal) 10 mg BID PRN GTB MUSCLE SPASMS; Start 03/22/17 at 18:00 Chlorhexidine Gluconate (Peridex) 15 ml Q12 MM Last administered on 04/01/17 09:27; Admin Dose 15 ML; Start 03/22/17 at 21:00 Docusate Sodium (Colace Liquid Cup) 100 mg BID GTB Last administered on 09:27; Admin Dose 100 MG; Start 03/22/17 at 21:00 Hydralazine HCl (Apresoline) 25 mg Q8 PRN GTB SBP>170; Start 03/22/17 at 18:00 Lactobacillus Acidophilus/ Rhamnosus (Culturelle) 1 cap DAILY GTB Last administered on 04/01/17 09:28; Admin Dose 1 CAP; Start 03/23/17 at 09:00 Lactulose (Enulose) 20 gm BID GTB Last administered on 04/01/17 09:27; Admin Dose 20 GM; Start 03/22/17 at 21:00 Lansoprazole (Prevacid) 30 mg DAILY@06 GTB Last administered on 04/01/17 05:29 ; Admin Dose 30 MG; Start 03/23/17 at 06:00 Lisinopril (Zestril) 20 mg DAILY GTB Last administered on 04/01/17 09:30; Admin Dose 20 MG; Start 03/22/17 at 22:00 Magnesium Hydroxide (Milk Of Mag) 30 ml DAILY GTB Last administered on 09:27; Admin Dose 30 ML; Start 03/23/17 at 09:00 Sodium Biphosphate/ Sodium Phosphate (Fleet Enema) 133 ml DAILY PRN [place] CONSTIPATION; Start 03/22/17 at 18:00 Nitroglycerin (Nitroglycerin 2% Oint) 1 inch Q6H PRN TD CHEST PAIN Last administered on 03/22/17 22:56; Admin Dose 1 INCH; Start 03/22/17 at 18:00 Nystatin (Nystatin Susp) 5 ml BID GTB Last administered on 04/01/17 09:28; Admin Dose 5 ML; Start 03/22/17 at 22:00 Oxycodone HCl (Roxicodone) 5 mg Q4H PRN GTB PAIN; Start 03/22/17 at 18:00 Polyethylene Glycol (Miralax) 17 gm DAILY GTB Last administered on 04/01/17 09 :27; Admin Dose 17 GM; Start 03/23/17 at 09:00 Prochlorperazine (Compazine Inj) 5 mg Q6H PRN IM NAUSEA AND/OR VOMITING; Start 03/22/17 at 18:00 Simethicone (Mylicon) 80 mg Q6H PRN PEG DISTENSION/GAS/BLOATING; Start at 18:00 Spironolactone (Aldactone) 25 mg DAILY GTB Last administered on 04/01/17 09:28 ; Admin Dose 25 MG; Start 03/23/17 at 09:00 Topiramate (Topamax) 25 mg BID GTB Last administered on 04/01/17 09:28; Admin Dose 25 MG; Start 03/22/17 at 21:00 Multivitamins (Thera-Plus) 5 ml DAILY GTB Last administered on 04/01/17 09:27 ; Admin Dose 5 ML; Start 03/23/17 at 09:00 Psyllium Hydrophilic Mucilloid (Metamucil (Sugar Free)) 1 pkt BID GTB Last administered on 04/01/17 09:29; Admin Dose 1 PKT; Start 03/22/17 at 22:00 Propranolol HCl (Inderal) 60 mg Q6 GTB Last administered on 04/01/17 05:29; Admin Dose 60 MG; Start 03/22/17 at 22:00 Ibuprofen (Motrin) 400 mg ONCE PRN PO PAIN OR TEMP ABOVE 38C Last administered on 03/30/17 22:00; Admin Dose 400 MG; Start 03/25/17 at 02:00 Acetaminophen (Tylenol Liquid) 325 mg Q6 GTB Last administered on 04/01/17 05: 29; Admin Dose 325 MG; Start 03/26/17 at 18:00 Levetiracetam (Keppra Liquid) 2,000 mg BID GTB Last administered on 04/01/17 09:28; Admin Dose 2,000 MG; Start 03/31/17 at 21:00 MARQUITA GRACIA April 01, 2017 12:33
--- NOTE | 2017-04-01 13:24 | PN ---
DATE: 04/01/2017 SUBJECTIVE: This patient did have traumatic hematuria when attempts were made to catheterize him, a nd since then there was no further attempt to catheterize him and he had a condom catheter and the u rine has been clear. OBJECTIVE: VITAL SIGNS: His temperature is 101.0. The blood pressure 129/72, pulse is 118, respirations 20. ABDOMEN: The condom catheter is on and draining clear urine. LABORATORY DATA: CBC shows a white count of 8.8, hemoglobin 13.1, hematocrit 40.7. BUN is 19, crea tinine 0.64. Electrolytes are normal. From a urological standpoint, the patient is voiding and his urine is clear. Therefore, continue the present management. As far as for his temperature, the wo rkup is done by the primary care physicians. Dictated By: GERARDO CHE/MAKAYLA Conf#: [id number] DID#: [id number]
--- NOTE | 2017-04-01 15:13 | PN ---
Date/Time of Note Date/Time of Note DATE: 04/01/17 TIME: 15:10 Assessment/Plan VTE Prophylaxis VTE Prophylaxis Intervention: other (eliquis) Lines/Catheters IV Catheter Type (from [facility]): Mid Line Urinary Cath still in place: No (condom cath) Assessment/Plan Assessment/Plan 1. Fever, central from brain injury versus intermittent aspiration and lung atelectasis, either does not need antibiotics for specific treatment other than symptomatic management. * I discussed this with the mother today. mother does not want to have WBC scan. Patient can be discharged when bed is available. 2. Anoxic encephalopathy with chronic debility status post percutaneous endoscopic gastrostomy and tracheostomy as well as craniectomy for Intracranial hemorrhage: supportive care 3. Hypertension-stable 4. History of substance abuse in the past 5. Prophylaxis: eliquis Subjective 24 Hr Interval Summary Free Text/Dictation Spoke with mom in detail, she just wants aggressive rehab for her son, she does not mind going back to [place] Exam/Review of Systems Vital Signs Vitals Vital Signs Date Time Temp Pulse Resp B/P Pulse Ox O2 Delivery O2 Flow Rate FiO2 04/01/17 12:16 118 04/01/17 11:42 101.0 20 129/72 98 04/01/17 01:08 5.0 28 03/31/17 17:39 Aerosol T Tube Intake and Output 03/31/17 03/31/17 04/01/17 15:00 23:00 07:00 Intake Total 1060 ml 1360 ml Output Total 800 ml 650 ml Balance 260 ml 710 ml Exam Constitutional: non-verbal Respiratory: clear to auscultation Cardiovascular: regular rate and rhythm Gastrointestinal: soft, No distended Musculoskeletal: No nl extremities to inspection Results Result Diagram: 03/30/17 0711 03/30/17 0711 Medications Medications Current Medications Ondansetron HCl (Zofran Inj) 4 mg Q6H PRN IV NAUSEA AND/OR VOMITING Last administered on 03/24/17 06:07; Admin Dose 4 MG; Start 03/22/17 at 18:00 Acetaminophen (Tylenol Liquid) 500 mg Q6H PRN GTB PAIN AND OR ELEVATED TEMP Last administered on 03/30/17 20:27; Admin Dose 500 MG; Start 03/22/17 at 18:00 Amlodipine Besylate (Norvasc) 5 mg DAILY GTB Last administered on 03/27/17 08: 06; Admin Dose 5 MG; Start 03/23/17 at 09:00 Apixaban (Eliquis) 5 mg BID GTB Last administered on 04/01/17 09:28; Admin Dose 5 MG; Start 03/22/17 at 21:00 Baclofen (Lioresal) 10 mg BID PRN GTB MUSCLE SPASMS; Start 03/22/17 at 18:00 Chlorhexidine Gluconate (Peridex) 15 ml Q12 MM Last administered on 04/01/17 09:27; Admin Dose 15 ML; Start 03/22/17 at 21:00 Docusate Sodium (Colace Liquid Cup) 100 mg BID GTB Last administered on 09:27; Admin Dose 100 MG; Start 03/22/17 at 21:00 Hydralazine HCl (Apresoline) 25 mg Q8 PRN GTB SBP>170; Start 03/22/17 at 18:00 Lactobacillus Acidophilus/ Rhamnosus (Culturelle) 1 cap DAILY GTB Last administered on 04/01/17 09:28; Admin Dose 1 CAP; Start 03/23/17 at 09:00 Lactulose (Enulose) 20 gm BID GTB Last administered on 04/01/17 09:27; Admin Dose 20 GM; Start 03/22/17 at 21:00 Lansoprazole (Prevacid) 30 mg DAILY@06 GTB Last administered on 04/01/17 05:29 ; Admin Dose 30 MG; Start 03/23/17 at 06:00 Lisinopril (Zestril) 20 mg DAILY GTB Last administered on 04/01/17 09:30; Admin Dose 20 MG; Start 03/22/17 at 22:00 Magnesium Hydroxide (Milk Of Mag) 30 ml DAILY GTB Last administered on 09:27; Admin Dose 30 ML; Start 03/23/17 at 09:00 Sodium Biphosphate/ Sodium Phosphate (Fleet Enema) 133 ml DAILY PRN [place] CONSTIPATION; Start 03/22/17 at 18:00 Nitroglycerin (Nitroglycerin 2% Oint) 1 inch Q6H PRN TD CHEST PAIN Last administered on 03/22/17 22:56; Admin Dose 1 INCH; Start 03/22/17 at 18:00 Nystatin (Nystatin Susp) 5 ml BID GTB Last administered on 04/01/17 09:28; Admin Dose 5 ML; Start 03/22/17 at 22:00 Oxycodone HCl (Roxicodone) 5 mg Q4H PRN GTB PAIN; Start 03/22/17 at 18:00 Polyethylene Glycol (Miralax) 17 gm DAILY GTB Last administered on 04/01/17 09 :27; Admin Dose 17 GM; Start 03/23/17 at 09:00 Prochlorperazine (Compazine Inj) 5 mg Q6H PRN IM NAUSEA AND/OR VOMITING; Start 03/22/17 at 18:00 Simethicone (Mylicon) 80 mg Q6H PRN PEG DISTENSION/GAS/BLOATING; Start at 18:00 Spironolactone (Aldactone) 25 mg DAILY GTB Last administered on 04/01/17 09:28 ; Admin Dose 25 MG; Start 03/23/17 at 09:00 Topiramate (Topamax) 25 mg BID GTB Last administered on 04/01/17 09:28; Admin Dose 25 MG; Start 03/22/17 at 21:00 Multivitamins (Thera-Plus) 5 ml DAILY GTB Last administered on 04/01/17 09:27 ; Admin Dose 5 ML; Start 03/23/17 at 09:00 Psyllium Hydrophilic Mucilloid (Metamucil (Sugar Free)) 1 pkt BID GTB Last administered on 04/01/17 09:29; Admin Dose 1 PKT; Start 03/22/17 at 22:00 Propranolol HCl (Inderal) 60 mg Q6 GTB Last administered on 04/01/17 13:13; Admin Dose 60 MG; Start 03/22/17 at 22:00 Ibuprofen (Motrin) 400 mg ONCE PRN PO PAIN OR TEMP ABOVE 38C Last administered on 03/30/17 22:00; Admin Dose 400 MG; Start 03/25/17 at 02:00 Acetaminophen (Tylenol Liquid) 325 mg Q6 GTB Last administered on 04/01/17 13: 12; Admin Dose 325 MG; Start 03/26/17 at 18:00 Levetiracetam (Keppra Liquid) 2,000 mg BID GTB Last administered on 04/01/17t 09:28; Admin Dose 2,000 MG; Start 03/31/17 at 21:00 ANNA CARO April 01, 2017 15:13
[2017-04-02] VITALS (12 sets, daily range): BP systolic 98–187; BP diastolic 55–81; PULSE 99–117; RESP 16–20
[2017-04-02] MEDS: ACETAMINOPHEN 650MG/20.3ML CUP GTB SCH ×5 (00:11→23:41)
[2017-04-02] MEDS: LANSOPRAZOLE 30 MG CAP GTB SCH (06:19)
[2017-04-02] MEDS: PROPRANOLOL 40 MG TAB GTB SCH ×5 (06:19→23:42)
[2017-04-02] MEDS: MAGNESIUM HYDROXIDE 30ML CUP GTB SCH (09:00)
[2017-04-02] MEDS: CHLORHEXIDINE GLUCONATE 15 ML UD CUP MM SCH ×2 (09:25→20:23)
[2017-04-02] MEDS: SPIRONOLACTONE 25 MG TAB GTB SCH (09:25)
[2017-04-02] MEDS: NYSTATIN SUSP 5 ML CUP GTB SCH ×2 (09:25→20:23)
[2017-04-02] MEDS: TOPIRAMATE 25 MG TAB GTB SCH ×2 (09:25→20:23)
[2017-04-02] MEDS: MULTIVITAMINS 5 ML CUP GTB SCH (09:25)
[2017-04-02] MEDS: AMLODIPINE 5 MG TAB GTB SCH (09:26)
[2017-04-02] MEDS: LACTOBACILLUS RHAMNOSUS CAP GTB SCH (09:27)
[2017-04-02] MEDS: LISINOPRIL 20 MG TAB GTB SCH (09:27)
[2017-04-02] MEDS: APIXABAN 5 MG TABLET GTB SCH ×2 (09:27→20:23)
[2017-04-02] MEDS: LEVETIRACETAM (100 MG/ML) 5ML CUP GTB SCH ×2 (09:30→20:23)
--- NOTE | 2017-04-02 10:21 | PN ---
Date/Time of Note Date/Time of Note DATE: 04/02/17 TIME: 10:13 Assessment/Plan VTE Prophylaxis VTE Prophylaxis Intervention: other (el) Lines/Catheters IV Catheter Type (from Nrs): Mid Line Urinary Cath still in place: No (condom cath) Assessment/Plan Assessment/Plan Unfortunate 21-year-old male who is now vegetative after a drug overdose at [facility] January 11, 2017 as well as status post large craniectomy for possible herniation versus hemorrhage who is now ventilator dependent and on tube feeds managed as follows: 1. Fever, central from brain injury versus intermittent aspiration and lung atelectasis, either does not need antibiotics for specific treatment other than symptomatic management. * I discussed this with the mother today. mother does not want to have WBC scan. Patient can be discharged when bed is available. 2. Anoxic encephalopathy with chronic debility status post percutaneous endoscopic gastrostomy and tracheostomy as well as craniectomy for Intracranial hemorrhage: supportive care 3. Hypertension-stable 4. History of substance abuse in the past 5. Prophylaxis: eliquis DISPO: * Mother is requesting aggressive in bed physical therapy for her son, she does not mind returning to [place]. Will discuss with supervisor case loading. Subjective 24 Hr Interval Summary Free Text/Dictation Patient continues to have central fevers, spoke with mother in detail. Mother does not mind [facility] transfer. Subjective hx not possible: pt non-verbal Exam/Review of Systems Vital Signs Vitals Vital Signs Date Time Temp Pulse Resp B/P Pulse Ox O2 Delivery O2 Flow Rate FiO2 04/02/17 08:04 109 04/02/17 07:46 100.1 20 110/60 97 04/02/17 01:00 5.0 28 04/02/17 01:00 Aerosol T Tube Intake and Output 04/01/17 04/01/17 04/02/17 15:00 23:00 07:00 Intake Total 1210 ml 580 ml Output Total 700 ml 350 ml Balance 510 ml 230 ml Exam Constitutional: non-verbal, other (unresponsive, eyes open spontaneously, spontaneous blinking movements without actual purpose), Eyes open spontaneously, No oriented, No distress Psych: other (unable to assess) Head: normocephalic, large right-sided frontotemporal deficit from previous craniectomy (cranial bone stored in [facility] per mom) Eyes: PERRL, No icteric ENMT: No mucosa pink and moist (dry) Neck: non-tender Respiratory: diminished breath sounds, No labored breathing Cardiovascular: regular rate and rhythm, No murmurs/extra sounds Gastrointestinal: soft, non-tender, bowel sounds, other (PEG tube noted with no cellulitis or discharge) Genitourinary - Female: nl external genitalia Extremities: Chronically contracted without any form of extremity movement Neurological: lethargic, other (altered, eyes opening spontaneously but no tracking or following commands), No nl mental status, No nl speech, No nl strength Results Result Diagram: 03/30/1711 03/30/1711 Medications Medications Current Medications Ondansetron HCl (Zofran Inj) 4 mg Q6H PRN IV NAUSEA AND/OR VOMITING Last administered on 03/24/17 06:07; Admin Dose 4 MG; Start 03/22/17 at 18:00 Acetaminophen (Tylenol Liquid) 500 mg Q6H PRN GTB PAIN AND OR ELEVATED TEMP Last administered on 03/30/17 20:27; Admin Dose 500 MG; Start 03/22/17 at 18:00 Amlodipine Besylate (Norvasc) 5 mg DAILY GTB Last administered on 04/02/17 09: 26; Admin Dose 5 MG; Start 03/23/17 at 09:00 Apixaban (Eliquis) 5 mg BID GTB Last administered on 04/02/17 09:27; Admin Dose 5 MG; Start 03/22/17 at 21:00 Baclofen (Lioresal) 10 mg BID PRN GTB MUSCLE SPASMS; Start 03/22/17 at 18:00 Chlorhexidine Gluconate (Peridex) 15 ml Q12 MM Last administered on 04/02/17 09:25; Admin Dose 15 ML; Start 03/22/17 at 21:00 Hydralazine HCl (Apresoline) 25 mg Q8 PRN GTB SBP>170; Start 03/22/17 at 18:00 Lactobacillus Acidophilus/ Rhamnosus (Culturelle) 1 cap DAILY GTB Last administered on 04/02/17 09:27; Admin Dose 1 CAP; Start 03/23/17 at 09:00 Lansoprazole (Prevacid) 30 mg DAILY@06 GTB Last administered on 04/02/17 06:19 ; Admin Dose 30 MG; Start 03/23/17 at 06:00 Lisinopril (Zestril) 20 mg DAILY GTB Last administered on 04/02/17 09:27; Admin Dose 20 MG; Start 03/22/17 at 22:00 Magnesium Hydroxide (Milk Of Mag) 30 ml DAILY GTB Last administered on 09:27; Admin Dose 30 ML; Start 03/23/17 at 09:00 Sodium Biphosphate/ Sodium Phosphate (Fleet Enema) 133 ml DAILY PRN [place] CONSTIPATION; Start 03/22/17 at 18:00 Nitroglycerin (Nitroglycerin 2% Oint) 1 inch Q6H PRN TD CHEST PAIN Last administered on 03/22/17 22:56; Admin Dose 1 INCH; Start 03/22/17 at 18:00 Nystatin (Nystatin Susp) 5 ml BID GTB Last administered on 04/02/17 09:25; Admin Dose 5 ML; Start 03/22/17 at 22:00 Oxycodone HCl (Roxicodone) 5 mg Q4H PRN GTB PAIN; Start 03/22/17 at 18:00 Prochlorperazine (Compazine Inj) 5 mg Q6H PRN IM NAUSEA AND/OR VOMITING; Start 03/22/17 at 18:00 Simethicone (Mylicon) 80 mg Q6H PRN PEG DISTENSION/GAS/BLOATING; Start at 18:00 Spironolactone (Aldactone) 25 mg DAILY GTB Last administered on 04/02/17 09:25 ; Admin Dose 25 MG; Start 03/23/17 at 09:00 Topiramate (Topamax) 25 mg BID GTB Last administered on 04/02/17 09:25; Admin Dose 25 MG; Start 03/22/17 at 21:00 Multivitamins (Thera-Plus) 5 ml DAILY GTB Last administered on 04/02/17 09:25 ; Admin Dose 5 ML; Start 03/23/17 at 09:00 Propranolol HCl (Inderal) 60 mg Q6 GTB Last administered on 04/02/17 06:19; Admin Dose 60 MG; Start 03/22/17 at 22:00 Ibuprofen (Motrin) 400 mg ONCE PRN PO PAIN OR TEMP ABOVE 38C Last administered on 03/30/17 22:00; Admin Dose 400 MG; Start 03/25/17 at 02:00 Acetaminophen (Tylenol Liquid) 325 mg Q6 GTB Last administered on 04/02/17 06: 19; Admin Dose 325 MG; Start 03/26/17 at 18:00 Levetiracetam (Keppra Liquid) 2,000 mg BID GTB Last administered on 04/02/17 09:30; Admin Dose 2,000 MG; Start 03/31/17 at 21:00 ANNA CARO April 02, 2017 10:21
--- NOTE | 2017-04-02 10:21 | CONS ---
Date/Time of Note Date/Time of Note DATE: 04/02/17 TIME: 10:19 Assessment/Plan Assessment/Plan Additional Assessment/Plan Assessment recommendations; 1. Patient admitted for low-grade fever likely central in etiology. No discernible source identified. 2. Anoxic brain injury, patient maintained on tracheal T piece with persistent vegetative state. 3. Stable seizure disorder and hypertension. Continue current treatment. Patient can be transferred back to long-term facility. Consultation Date/Type/Reason Admit Date/Time March 22, 2017 at 14:56 Type of Consultation: Pulmonary 24 HR Interval Summary Free Text/Dictation Patient condition remains stable. Has remained hemodynamically stable. Remains unresponsive due to persistent vegetative state due to anoxic brain injury. General exam; young male, on tracheostomy with T piece. Currently in no distress. Exam/Review of Systems Vital Signs Vitals Vital Signs Date Time Temp Pulse Resp B/P Pulse Ox O2 Delivery O2 Flow Rate FiO2 04/02/17 08:04 109 04/02/17 07:46 100.1 20 110/60 97 04/02/17 01:00 5.0 28 04/02/17 01:00 Aerosol T Tube Intake and Output 04/01/17 04/01/17 04/02/17 15:00 23:00 07:00 Intake Total 1210 ml 580 ml Output Total 700 ml 350 ml Balance 510 ml 230 ml Exam HEENT exam is; supple neck, no JVD. No lymphadenopathy. Midline trachea. No thyromegaly. Dentition is fair. Tracheostomy in place with clean insertion site. Chest examination; clear to auscultation. S1-S2 audible, no murmurs. Regular rhythm. Abdomen examination; soft, no organomegaly. G-tube in place. Bowel sounds audible. Extremity exam; no peripheral edema. Pulses 1+ bilaterally. STENOTYPE MACHINE OPERATOR examination; patient remains in persistent vegetative state. Results Result Diagram: 03/30/1771003/30/17710 Medications Medications Current Medications Ondansetron HCl (Zofran Inj) 4 mg Q6H PRN IV NAUSEA AND/OR VOMITING Last administered on 03/24/17 06:07; Admin Dose 4 MG; Start 03/22/17 at 18:00 Acetaminophen (Tylenol Liquid) 500 mg Q6H PRN GTB PAIN AND OR ELEVATED TEMP Last administered on 03/30/17 20:27; Admin Dose 500 MG; Start 03/22/17 at 18:00 Amlodipine Besylate (Norvasc) 5 mg DAILY GTB Last administered on 04/02/17 09: 26; Admin Dose 5 MG; Start 03/23/17 at 09:00 Apixaban (Eliquis) 5 mg BID GTB Last administered on 04/02/17 09:27; Admin Dose 5 MG; Start 03/22/17 at 21:00 Baclofen (Lioresal) 10 mg BID PRN GTB MUSCLE SPASMS; Start 03/22/17 at 18:00 Chlorhexidine Gluconate (Peridex) 15 ml Q12 MM Last administered on 04/02/17 09:25; Admin Dose 15 ML; Start 03/22/17 at 21:00 Hydralazine HCl (Apresoline) 25 mg Q8 PRN GTB SBP>170; Start 03/22/17 at 18:00 Lactobacillus Acidophilus/ Rhamnosus (Culturelle) 1 cap DAILY GTB Last administered on 04/02/17 09:27; Admin Dose 1 CAP; Start 03/23/17 at 09:00 Lansoprazole (Prevacid) 30 mg DAILY@06 GTB Last administered on 04/02/17 06:19 ; Admin Dose 30 MG; Start 03/23/17 at 06:00 Lisinopril (Zestril) 20 mg DAILY GTB Last administered on 04/02/17 09:27; Admin Dose 20 MG; Start 03/22/17 at 22:00 Magnesium Hydroxide (Milk Of Mag) 30 ml DAILY GTB Last administered on 09:27; Admin Dose 30 ML; Start 03/23/17 at 09:00 Sodium Biphosphate/ Sodium Phosphate (Fleet Enema) 133 ml DAILY PRN [place] CONSTIPATION; Start 03/22/17 at 18:00 Nitroglycerin (Nitroglycerin 2% Oint) 1 inch Q6H PRN TD CHEST PAIN Last administered on 03/22/17 22:56; Admin Dose 1 INCH; Start 03/22/17 at 18:00 Nystatin (Nystatin Susp) 5 ml BID GTB Last administered on 04/02/17 09:25; Admin Dose 5 ML; Start 03/22/17 at 22:00 Oxycodone HCl (Roxicodone) 5 mg Q4H PRN GTB PAIN; Start 03/22/17 at 18:00 Prochlorperazine (Compazine Inj) 5 mg Q6H PRN IM NAUSEA AND/OR VOMITING; Start 03/22/17 at 18:00 Simethicone (Mylicon) 80 mg Q6H PRN PEG DISTENSION/GAS/BLOATING; Start at 18:00 Spironolactone (Aldactone) 25 mg DAILY GTB Last administered on 04/02/17 09:25 ; Admin Dose 25 MG; Start 03/23/17 at 09:00 Topiramate (Topamax) 25 mg BID GTB Last administered on 04/02/17 09:25; Admin Dose 25 MG; Start 03/22/17 at 21:00 Multivitamins (Thera-Plus) 5 ml DAILY GTB Last administered on 04/02/17 09:25 ; Admin Dose 5 ML; Start 03/23/17 at 09:00 Propranolol HCl (Inderal) 60 mg Q6 GTB Last administered on 04/02/17 06:19; Admin Dose 60 MG; Start 03/22/17 at 22:00 Ibuprofen (Motrin) 400 mg ONCE PRN PO PAIN OR TEMP ABOVE 38C Last administered on 03/30/17 22:00; Admin Dose 400 MG; Start 03/25/17 at 02:00 Acetaminophen (Tylenol Liquid) 325 mg Q6 GTB Last administered on 04/02/17 06: 19; Admin Dose 325 MG; Start 03/26/17 at 18:00 Levetiracetam (Keppra Liquid) 2,000 mg BID GTB Last administered on 04/02/17 09:30; Admin Dose 2,000 MG; Start 03/31/17 at 21:00 MARQUITA GRACIA April 02, 2017 10:21
[2017-04-03] VITALS (10 sets, daily range): BP systolic 105–119; BP diastolic 50–57; PULSE 85–110; RESP 18
[2017-04-03] MEDS: ACETAMINOPHEN 650MG/20.3ML CUP GTB SCH ×2 (05:58→12:05)
[2017-04-03] MEDS: LANSOPRAZOLE 30 MG CAP GTB SCH (05:59)
[2017-04-03] MEDS: PROPRANOLOL 40 MG TAB GTB SCH ×3 (05:59→17:53)
[2017-04-03] MEDS: AMLODIPINE 5 MG TAB GTB SCH (09:00)
[2017-04-03] MEDS: MAGNESIUM HYDROXIDE 30ML CUP GTB SCH (09:00)
[2017-04-03] MEDS: LACTOBACILLUS RHAMNOSUS CAP GTB SCH (09:53)
[2017-04-03] MEDS: MULTIVITAMINS 5 ML CUP GTB SCH (09:53)
[2017-04-03] MEDS: CHLORHEXIDINE GLUCONATE 15 ML UD CUP MM SCH (09:53)
[2017-04-03] MEDS: TOPIRAMATE 25 MG TAB GTB SCH (09:54)
[2017-04-03] MEDS: APIXABAN 5 MG TABLET GTB SCH (09:54)
[2017-04-03] MEDS: SPIRONOLACTONE 25 MG TAB GTB SCH (09:54)
[2017-04-03] MEDS: LEVETIRACETAM (100 MG/ML) 5ML CUP GTB SCH (09:54)
[2017-04-03] MEDS: NYSTATIN SUSP 5 ML CUP GTB SCH (09:54)
[2017-04-03] MEDS: LISINOPRIL 20 MG TAB GTB SCH (09:55)
--- NOTE | 2017-04-03 10:25 | CONS ---
Date/Time of Note Date/Time of Note DATE: 04/03/17 TIME: 10:23 Assessment/Plan Assessment/Plan Additional Assessment/Plan Assessment and recommendations; 1. Patient admitted for low-grade fever, which has been a persistent issue ever since the patient has had his anoxic brain injury. Because has been attributed to central PAYROLL AUDITOR origin fever. 2. Stable seizure disorder. 3. Hypertension. Continue current treatment. Patient can be discharged to rehab center. Consultation Date/Type/Reason Admit Date/Time March 22, 2017 at 14:56 Type of Consultation: Pulmonary 24 HR Interval Summary Free Text/Dictation Patient condition remains stable. Remains unresponsive due to persistent vegetative state. Has remained hemodynamically stable. Patient is afebrile now. General exam; young male, currently in no distress. On T-piece via tracheostomy. Exam/Review of Systems Vital Signs Vitals Vital Signs Date Time Temp Pulse Resp B/P Pulse Ox O2 Delivery O2 Flow Rate FiO2 04/03/17 08:19 85 04/03/17 08:13 98.5 18 105/50 98 04/03/17 05:24 5.0 28 04/02/17 21:27 Aerosol T Tube Intake and Output 04/02/17 04/02/17 04/03/17 15:00 23:00 07:00 Intake Total 1260 ml 1160 ml Output Total 650 ml 650 ml Balance 610 ml 510 ml Exam HEENT exam; supple neck, no JVD. No lymphadenopathy. Midline trachea. No thyromegaly. Tracheostomy tube in place with clean insertion site. There is a stable right parietal skull depression. Chest examined; clear to auscultation. S1-S2 audible, no murmurs. Regular rhythm. Abdomen examination; soft, no organomegaly. Bowel sounds audible. G-tube in place. Extremity examination; no peripheral edema. PAYROLL AUDITOR examination; patient remains in persistent vegetative state. Results Result Diagram: 03/30/1711 03/30/17 0711 Medications Medications Current Medications Ondansetron HCl (Zofran Inj) 4 mg Q6H PRN IV NAUSEA AND/OR VOMITING Last administered on 03/24/17 06:07; Admin Dose 4 MG; Start 03/22/17 at 18:00 Acetaminophen (Tylenol Liquid) 500 mg Q6H PRN GTB PAIN AND OR ELEVATED TEMP Last administered on 03/30/17 20:27; Admin Dose 500 MG; Start 03/22/17 at 18:00 Amlodipine Besylate (Norvasc) 5 mg DAILY GTB Last administered on 04/02/17 09: 26; Admin Dose 5 MG; Start 03/23/17 at 09:00 Apixaban (Eliquis) 5 mg BID GTB Last administered on 04/03/17 09:54; Admin Dose 5 MG; Start 03/22/17 at 21:00 Baclofen (Lioresal) 10 mg BID PRN GTB MUSCLE SPASMS; Start 03/22/17 at 18:00 Chlorhexidine Gluconate (Peridex) 15 ml Q12 MM Last administered on 04/03/17 09:53; Admin Dose 15 ML; Start 03/22/17 at 21:00 Hydralazine HCl (Apresoline) 25 mg Q8 PRN GTB SBP>170; Start 03/22/17 at 18:00 Lactobacillus Acidophilus/ Rhamnosus (Culturelle) 1 cap DAILY GTB Last administered on 04/03/17 09:53; Admin Dose 1 CAP; Start 03/23/17 at 09:00 Lansoprazole (Prevacid) 30 mg DAILY@06 GTB Last administered on 04/03/17 05:59 ; Admin Dose 30 MG; Start 03/23/17 at 06:00 Lisinopril (Zestril) 20 mg DAILY GTB Last administered on 04/03/17 09:55; Admin Dose 20 MG; Start 03/22/17 at 22:00 Magnesium Hydroxide (Milk Of Mag) 30 ml DAILY GTB Last administered on 09:27; Admin Dose 30 ML; Start 03/23/17 at 09:00 Sodium Biphosphate/ Sodium Phosphate (Fleet Enema) 133 ml DAILY PRN [place] CONSTIPATION; Start 03/22/17 at 18:00 Nitroglycerin (Nitroglycerin 2% Oint) 1 inch Q6H PRN TD CHEST PAIN Last administered on 03/22/17 22:56; Admin Dose 1 INCH; Start 03/22/17 at 18:00 Nystatin (Nystatin Susp) 5 ml BID GTB Last administered on 04/03/17 09:54; Admin Dose 5 ML; Start 03/22/17 at 22:00 Oxycodone HCl (Roxicodone) 5 mg Q4H PRN GTB PAIN; Start 03/22/17 at 18:00 Prochlorperazine (Compazine Inj) 5 mg Q6H PRN IM NAUSEA AND/OR VOMITING; Start 03/22/17 at 18:00 Simethicone (Mylicon) 80 mg Q6H PRN PEG DISTENSION/GAS/BLOATING; Start at 18:00 Spironolactone (Aldactone) 25 mg DAILY GTB Last administered on 04/03/17 09:54 ; Admin Dose 25 MG; Start 03/23/17 at 09:00 Topiramate (Topamax) 25 mg BID GTB Last administered on 04/03/17 09:54; Admin Dose 25 MG; Start 03/22/17 at 21:00 Multivitamins (Thera-Plus) 5 ml DAILY GTB Last administered on 04/03/17 09:53 ; Admin Dose 5 ML; Start 03/23/17 at 09:00 Propranolol HCl (Inderal) 60 mg Q6 GTB Last administered on 04/03/17 05:59; Admin Dose 60 MG; Start 03/22/17 at 22:00 Ibuprofen (Motrin) 400 mg ONCE PRN PO PAIN OR TEMP ABOVE 38C Last administered on 03/30/17 22:00; Admin Dose 400 MG; Start 03/25/17 at 02:00 Acetaminophen (Tylenol Liquid) 325 mg Q6 GTB Last administered on 04/03/17 05: 58; Admin Dose 325 MG; Start 03/26/17 at 18:00 Levetiracetam (Keppra Liquid) 2,000 mg BID GTB Last administered on 04/03/17 09:54; Admin Dose 2,000 MG; Start 03/31/17 at 21:00 MARQUITA GRACIA April 03, 2017 10:25
--- NOTE | 2017-04-03 15:23 | PN ---
Date/Time of Note Date/Time of Note DATE: 04/03/17 TIME: 15:17 Assessment/Plan VTE Prophylaxis VTE Prophylaxis Intervention: other (Eliquis) Lines/Catheters IV Catheter Type (from [facility]): Mid Line Urinary Cath still in place: No Assessment/Plan Chief Complaint/Hosp Course Assessment/Plan: Unfortunate 21-year-old male who is now vegetative after a drug overdose at [facility] January 11, 2017 as well as status post large craniectomy for possible herniation versus hemorrhage who is now ventilator dependent and on tube feeds managed as follows: 1. Fever - appears central from brain injury versus intermittent aspiration and lung atelectasis, apparently does not need antibiotics for specific treatment other than symptomatic management. * Per discussion with the mother over the weekend by other team, mother does not want to have WBC scan. Patient can be discharged to [place] when bed is available - working on this now. 2. Anoxic encephalopathy with chronic debility status post percutaneous endoscopic gastrostomy and tracheostomy as well as craniectomy for Intracranial hemorrhage: supportive care 3. Hypertension-stable 4. History of substance abuse in the past 5. Prophylaxis: eliquis DISPO: * Mother is requesting aggressive in bed physical therapy for her son, she does not mind returning to [place] - again, caseworker protective services working on this. Problems: Subjective 24 Hr Interval Summary Free Text/Dictation No acute events overnight. Still + fevers. Exam/Review of Systems Vital Signs Vitals Vital Signs Date Time Temp Pulse Resp B/P Pulse Ox O2 Delivery O2 Flow Rate FiO2 04/03/17 13:46 5.0 28 04/03/17 12:02 94 04/03/17 12:01 99.7 18 107/56 96 04/02/17 21:27 Aerosol T Tube Intake and Output 04/02/17 04/02/17 04/03/17 15:00 23:00 07:00 Intake Total 1260 ml 1160 ml Output Total 650 ml 650 ml Balance 610 ml 510 ml Exam Constitutional: non-verbal, other (unresponsive, eyes open spontaneously, spontaneous blinking movements without actual purpose), Eyes open spontaneously, No oriented, No distress Psych: other (unable to assess) Head: normocephalic, large right-sided frontotemporal deficit from previous craniectomy (cranial bone stored in [facility] per mom) Eyes: PERRL, No icteric ENMT: No mucosa pink and moist (dry) Neck: non-tender, + trach Respiratory: diminished breath sounds, No labored breathing Cardiovascular: regular rate and rhythm, No murmurs/extra sounds Gastrointestinal: soft, non-tender, bowel sounds, other (PEG tube noted with no cellulitis or discharge) Genitourinary - Female: nl external genitalia Extremities: Chronically contracted without any form of extremity movement Neurological: lethargic, other (altered, eyes opening spontaneously but no tracking or following commands), No nl mental status, No nl speech, No nl strength Results Result Diagram: 03/30/1771003/30/17710 Medications Medications Current Medications Ondansetron HCl (Zofran Inj) 4 mg Q6H PRN IV NAUSEA AND/OR VOMITING Last administered on 03/24/17 06:07; Admin Dose 4 MG; Start 03/22/17 at 18:00 Acetaminophen (Tylenol Liquid) 500 mg Q6H PRN GTB PAIN AND OR ELEVATED TEMP Last administered on 03/30/17 20:27; Admin Dose 500 MG; Start 03/22/17 at 18:00 Amlodipine Besylate (Norvasc) 5 mg DAILY GTB Last administered on 04/02/17 09: 26; Admin Dose 5 MG; Start 03/23/17 at 09:00 Apixaban (Eliquis) 5 mg BID GTB Last administered on 04/03/17 09:54; Admin Dose 5 MG; Start 03/22/17 at 21:00 Baclofen (Lioresal) 10 mg BID PRN GTB MUSCLE SPASMS; Start 03/22/17 at 18:00 Chlorhexidine Gluconate (Peridex) 15 ml Q12 MM Last administered on 04/03/17 09:53; Admin Dose 15 ML; Start 03/22/17 at 21:00 Hydralazine HCl (Apresoline) 25 mg Q8 PRN GTB SBP>170; Start 03/22/17 at 18:00 Lactobacillus Acidophilus/ Rhamnosus (Culturelle) 1 cap DAILY GTB Last administered on 04/03/17 09:53; Admin Dose 1 CAP; Start 03/23/17 at 09:00 Lansoprazole (Prevacid) 30 mg DAILY@06 GTB Last administered on 04/03/17 05:59 ; Admin Dose 30 MG; Start 03/23/17 at 06:00 Lisinopril (Zestril) 20 mg DAILY GTB Last administered on 04/03/17 09:55; Admin Dose 20 MG; Start 03/22/17 at 22:00 Magnesium Hydroxide (Milk Of Mag) 30 ml DAILY GTB Last administered on 09:27; Admin Dose 30 ML; Start 03/23/17 at 09:00 Sodium Biphosphate/ Sodium Phosphate (Fleet Enema) 133 ml DAILY PRN [place] CONSTIPATION; Start 03/22/17 at 18:00 Nitroglycerin (Nitroglycerin 2% Oint) 1 inch Q6H PRN TD CHEST PAIN Last administered on 03/22/17 22:56; Admin Dose 1 INCH; Start 03/22/17 at 18:00 Nystatin (Nystatin Susp) 5 ml BID GTB Last administered on 04/03/17 09:54; Admin Dose 5 ML; Start 03/22/17 at 22:00 Oxycodone HCl (Roxicodone) 5 mg Q4H PRN GTB PAIN; Start 03/22/17 at 18:00 Prochlorperazine (Compazine Inj) 5 mg Q6H PRN IM NAUSEA AND/OR VOMITING; Start 03/22/17 at 18:00 Simethicone (Mylicon) 80 mg Q6H PRN PEG DISTENSION/GAS/BLOATING; Start at 18:00 Spironolactone (Aldactone) 25 mg DAILY GTB Last administered on 04/03/17 09:54 ; Admin Dose 25 MG; Start 03/23/17 at 09:00 Topiramate (Topamax) 25 mg BID GTB Last administered on 04/03/17 09:54; Admin Dose 25 MG; Start 03/22/17 at 21:00 Multivitamins (Thera-Plus) 5 ml DAILY GTB Last administered on 04/03/17 09:53 ; Admin Dose 5 ML; Start 03/23/17 at 09:00 Propranolol HCl (Inderal) 60 mg Q6 GTB Last administered on 04/03/17 05:59; Admin Dose 60 MG; Start 03/22/17 at 22:00 Ibuprofen (Motrin) 400 mg ONCE PRN PO PAIN OR TEMP ABOVE 38C Last administered on 03/30/17 22:00; Admin Dose 400 MG; Start 03/25/17 at 02:00 Acetaminophen (Tylenol Liquid) 325 mg Q6 GTB Last administered on 04/03/17 12: 05; Admin Dose 325 MG; Start 03/26/17 at 18:00 Levetiracetam (Keppra Liquid) 2,000 mg BID GTB Last administered on 04/03/17 09:54; Admin Dose 2,000 MG; Start 03/31/17 at 21:00 ABRIL DOBBINS April 03, 2017 15:23
--- NOTE | 2017-04-03 15:35 | PDOCDIS ---
Discharge Instructions CONDITION Patient Condition: Stable HOME CARE INSTRUCTIONS: Special Diet: tf/calino ABRIL DOBBINS April 03, 2017 15:35
--- NOTE | 2017-04-03 16:29 | DS ---
DATE OF ADMISSION: 03/23/2017 DATE OF DISCHARGE: 04/03/2017 A 21-year-old male originally admitted on 03/23/2015 being discharged to [facility] on . HOSPITAL COURSE: The patient initially came in with history of anoxic brain injury. He has had a p rior PEG and trach. He came in with fevers and systemic inflammatory response syndrome so he was ad mitted, placed on broad spectrum antibiotics initially. He was seen by multiple specialists during this hospital stay including infectious disease team and urology team, pulmonary team. The patient was diagnosed with central fevers, apparently secondary to his brain injury versus intermittent aspi ration and lung atelectasis. After getting treatment with antibiotics, it was determined by the [facility] team that the patient did not require any further antibiotics. He did get a few days of ant ibiotic treatment, although he still had persistent fevers likely essential as mentioned above. All his cultures were negative. Procalcitonin level was 0.1. He had a persistent vegetative state, st atus post prior intracranial hemorrhage. He was medically managed for that. Over the course of his hospital stay again, he was seen by pulmonary team as well given his history of tracheostomy placem ent. He was monitored for any seizures as he does have a history of seizure disorder and also his b lood pressure was monitored very carefully as well. Other than the fevers, he is back at his baseli ne status. After discussion with the [facility] facility and also with the patient's mother regarding f urther physical therapy there, in addition to respiratory therapy, the patient will be discharged to [facility] in improved condition. DISCHARGE MEDICATIONS: He will be sent with: 1. Tylenol 500 q.6h. p.r.n. 2. Norvasc 5 mg daily. 3. Eliquis 5 mg b.i.d. 4. Baclofen 10 mg b.i.d. 5. Peridex 50 mL q.12h. 6. Hydralazine 25 mg q.8h. p.r.n. 7. Motrin 400 mg p.r.n. 8. Lactobacillus daily. 9. Prevacid 30 mg daily. 10. Keppra 2000 mg b.i.d. 11. Lisinopril 20 mg daily. 12. Milk of mag 30 mL daily. 13. Multivitamin 5 mL daily. 14. Nitroglycerin transdermal q.6h. p.r.n. 15. Nystatin 5 mL b.i.d. 16. Zofran 4 mg IV q.6h. p.r.n. 17. Roxicodone 5 mg q.4h. p.r.n. 18. Compazine 5 mg intramuscular q.6h. p.r.n. 19. Propranolol 60 mg q.6h. 20. Simethicone 80 mg q.6h. p.r.n. 21. Fleet enema per rectum daily p.r.n. 22. Aldactone 25 mg daily. 23. Topamax 25 mg b.i.d. 24. He will follow up with primary care doctor in the next 1 to 2 weeks. FINAL DIAGNOSES: 1. Fevers, appears to be central brain injury versus intermittent aspiration, now off of antibiotic s and no leukocytosis. 2. Anoxic encephalopathy, chronic debility status post PEG and tracheostomy placement as well as cr aniectomy for intracranial hemorrhage in the past. 3. Essential hypertension. 4. Prior history of substance abuse. 5. Traumatic hematuria, now resolved. 6. Prior history of IVC filter placed and prior thrombectomy. 7. History of anoxic brain injury secondary to prolonged hypoxia from aspiration pneumonia from sendy g overdose. Time spent discharging patient 45 minutes. Dictated By: ABRIL HUGGINS Conf#: [id number] DID#: [id number]
--- NOTE | 2017-04-04 07:54 | PN ---
DATE: 04/03/2017 INFECTIOUS DISEASE PROGRESS NOTE SUBJECTIVE: No acute changes overnight. The patient is lying comfortably in bed. On and off fever s. He is in no distress. No labs this morning. The patient is off antibiotics. INDWELLINGS: Trach, PEG. PHYSICAL EXAMINATION: GENERAL: This is a chronically ill-appearing, young man who is in persistent vegetative state. HEENT: The patient has evidence of craniectomy. Buccal mucosa dry. NECK: Supple. Tracheostomy present. CHEST: Rise symmetrical. Breath sounds diminished at bases. HEART: S1, S2. ABDOMEN: Soft, bowel tones present. EXTREMITIES: Without cyanosis. ASSESSMENT: 1. Essential fevers, so far cultures have been negative. Chest x-ray revealed no pneumonia and per mother's report the patient had been having fevers ever since his traumatic brain injury. Declined WBC labeled nuclear scan. 2. Chronic respiratory failure. 3. Vegetative state. 4. Hypertension. 5. History of substance abuse and intracranial hemorrhage. PLAN: The patient remains unchanged. Continue present care. Observe off antibiotics. Follow up p ulmonary, urology recommendations. Dictated By: KATI DONOVAN [employer] TECH for KRISHNA DURHAM MD NI/NTS Conf#: [id number] DID#: [id number]
== END 2017-04-03 19:32 | DRG 83 ==
LOC: E/R 10:53 → MS4 14:56
PROVIDERS: ADMIT Internal Medicine; ATTEND Internal Medicine
DX: S06.89 Other specified intracranial injury (principal); G93.1 Anoxic brain damage, not elsewhere classified; R40.3 Persistent vegetative state; J96.10 Chronic respiratory failure, unspecified whether with hypoxia or hypercapnia; Z93.0 Tracheostomy status; R65.10 Systemic inflammatory response syndrome (SIRS) of non-infectious origin without acute organ dysfunction; K92.2 Gastrointestinal hemorrhage, unspecified; R50.81 Fever presenting with conditions classified elsewhere; R40.2432 Glasgow coma scale score 3-8, at arrival to emergency department; Z93.1 Gastrostomy status; R00.0 Tachycardia, unspecified; D64.9 Anemia, unspecified; Z86.718 Personal history of other venous thrombosis and embolism; Z79.02 Long term (current) use of antithrombotics/antiplatelets; K56.41 Fecal impaction; K20.9 Esophagitis, unspecified; I10 Essential (primary) hypertension; R31.9 Hematuria, unspecified; G40.909 Epilepsy, unspecified, not intractable, without status epilepticus; B96.89 Other specified bacterial agents as the cause of diseases classified elsewhere; Z16.39 Resistance to other specified antimicrobial drug
CPT/HCPCS: 36415; 71010; 74176; 80048; 80053; 80202; 81001; 81003; 82962; 83605; 83735; 84100; 84145; 84484; 85025; 85610; 85730; 87040; 87070; 87075; 87081; 87086; 93005; 96374; 96375; 97110; 97161; J0692; J2405; J2543; J3370; J3480; J7030; J7040; J7050